=== PATIENT | female | born 1970 | race Caucasian/White ===

== ENCOUNTER 2018-11-15 15:15 | Inpatient (IN) ==
--- NOTE | 2018-11-15 15:29 | Emergency Department Note ---
ED Visit Note I assisted Dr. Powell in the care of this patient. Please see attending not for more details. . Resident Activity Tracking Resident Involvement: Resident Care Provided Care Provided: Adult ED
[2018-11-15] MEDS ORDERED: ACETAMINOPHEN 1,000 MG/100 ML VIAL IV ONE (15:50)
--- NOTE | 2018-11-15 16:19 | XRay Report ---
XR chest 1V portable CLINICAL HISTORY: fever COMPARISON STUDY: 05/19/2011 FINDINGS: Central catheter in superior vena cava. Lungs are clear. Diaphragms are smooth. IMPRESSION: No acute processes. The above report was generated using voice recognition software. It may contain grammatical, syntax or spelling errors. Electronically signed by: Noble Cain M.D. 11/15/2018 4:18 PM
[2018-11-15] MEDS ORDERED: CEFEPIME 2,000 MG/20 ML VIAL IV STA (16:32)
[2018-11-15 17:22] LABS: Basophils # (auto) 0.02 K/uL (0-0.2); Basophils % (auto) 1.1 %; Hematocrit (blood only) 43.3 % (37-47); Hemoglobin 14.5 g/dL (12.0-16.0); Immature Granulocytes # (auto) 0.04 K/uL (0.00-0.02); Immature Granulocytes % (auto) 2.3 %; Lymphocytes # (auto) 0.36 K/uL (1.2-3.4); Lymphocytes % (auto) 20.5 %; Mean Corpuscular Hgb Conc 33.5 g/dL (32-36); Mean Corpuscular Volume 92.7 fL (80-100); Mean Platelet Volume 10.5 fL (7.4-10.4); Monocytes # (auto) 0.12 K/uL (0.11-0.59); Monocytes % (auto) 6.8 %; Neutrophils # (auto) 1.22 K/uL (1.4-6.5); Neutrophils % (auto) 69.3 %; Nucleated RBC # (auto) 0.03 K/uL (0-0); Nucleated RBC % (auto) 1.7 %; Platelet Count 160 K/uL (130-400); RDW Coefficient of Variation 13.8 % (11.5-14.5); RDW Standard Deviation 46.4 fL (36.4-46.3); Red Blood Count 4.67 M/uL (4.2-5.4); White Blood Count 1.76 K/uL (4.8-10.8)
[2018-11-15 17:46] LABS: Alanine Aminotransferase 47 U/L (12-78); Albumin Globulin Ratio 0.8 (0.9-2); Albumin Level 3.7 gm/dl (3.4-5.0); Alkaline Phosphatase 134 U/L (45-117); BUN Creatinine Ratio 3.8 (10-20); Bilirubin,Total 0.6 mg/dl (0.2-1); Blood Urea Nitrogen 4 mg/dl (7-18); Carbon Dioxide 28 mmol/L (21-32); Chloride 94 mmol/L (98-107); Est GFR (African American) 79.6; Est GFR (Non-African American) 68.7; Globulin 4.6 gm/dl (2.5-4.0); Glucose 108 mg/dl (70-99); Total Protein 8.3 gm/dl (6.4-8.2)
[2018-11-15] MEDS: SODIUM CHLORIDE 0.9% 1000ML 1,000 ML IV SCH ×2 (17:48→18:14)
[2018-11-15 17:59] LABS: Potassium 3.5 mmol/L (3.5-5.1); Sodium 131 mmol/L (136-145)
[2018-11-15 18:05] LABS: Aspartate Aminotransferase 25 U/L (15-37)
--- NOTE | 2018-11-15 18:10 | History & Physical Report ---
Date of Service November 15, 2018 Assessment & Plan (1) Diarrhea: SIRS Leukopenia likely due to chemotherapy Monitor for possible Neutropenic fever No obvious source of infection Last chemotherapy 1 week ago CXR:No acute processes. UA: pending Influenza Screen: Negative Blood/Urine Cultures: Pending Empirically start on IV vancomycin, cefepime Consider neutropenic precautions if ANC less than 500 Check Stool studies to R/O C.diff Start on IV fluids Consider oncology consult if leukopenia worsens Monitor CBC Hyponatremia Hypochloremia Diarrhea R/O C.diff Started on IV fluids monitor electrolytes Left breast invasive carcinoma grade 3 ongoing neoadjuvant chemotherapy with TCHP Last chemotherapy 1 week ago Follows with Oncology Hypertension Slightly elevated Admits to missing her losartan dose today Continue losartan 25 mg daily Monitor Obesity S/P gastric bypass surgery Dysmenorrhea As per records No acute issues DVT Px: Lovenox SQ Code Status Full Code Disposition: Expect to discharge home when stable History of Present Illness Chief Complaint: Fever, generalized weakness Primary Care Provider: Christy Jones MD Patient is a 48-year-old female with history of left breast invasive carcinoma grade 3, ongoing neoadjuvant chemotherapy, hypertension, obesity S/P gastric bypass surgery, dysmenorrhea and other problems presents with history of fever, generalized weakness and lethargy, nausea and decreased appetite associated with diarrhea since 1 week duration. Patient had her last chemotherapy 1 week ago. She follows with oncology Dr. Mathew. She noticed having low-grade fever yesterday and developed high-grade fever today. States having generalized body ache associated with lethargy/generalized weakness. Also reports having nausea with dry heaves but denies any vomiting. She reports having loose watery nonbloody diarrhea since 4 days duration. She admits to having frontal headache which she attributes to migraine. Also reports noticing rash at the umbilical region and under her breasts for which she has been using calamine powder which seemed to help. Denies any associated abdominal pain, blood in stools. She reports that she had her Chemo-Port infected 2 months ago for which she completed 1 week course of Bactrim at the time. Denies any history of C. difficile. Denies any history of chest pain, SOB, palpitations, dizziness, cough, hemoptysis, dysuria. Allergies Allergy/AdvReac Type Severity Reaction Status Date / Time cashew nut Allergy Severe ANAPHYLAXIS Verified 11/15/18 18:13 pine nut Allergy Severe ANAPHYLAXIS Verified 11/15/18 18:13 pistachio nut Allergy Severe ANAPHYLAXIS Verified 11/15/18 18:13 NLESON Inhibitors Allergy Unknown cough Verified 11/15/18 18:13 Penicillins Allergy Unknown Unknown Verified 11/15/18 18:13 Home Medications Home Medications Medication Instructions Recorded Confirmed Type dexamethasone 4 mg PO DIRECTED 11/15/18 11/15/18 History epinephrine 0.3 mg IM DIRECTED PRN 11/15/18 11/15/18 History loratadine [Claritin] 10 mg PO DAILY PRN 11/15/18 11/15/18 History losartan 25 mg PO DAILY 11/15/18 11/15/18 History ondansetron HCl 8 mg PO Q8H PRN 11/15/18 11/15/18 History pedi multivit no.7-folic acid 100 mcg PO DAILY 11/15/18 11/15/18 History [Flintstones Tab Chew] pegfilgrastim [Neulasta] 6 mg SUBCUT DIRECTED 11/15/18 11/15/18 History tramadol 50 mg PO Q6H PRN 11/15/18 11/15/18 History Past Med/Surg History Medical History Breast cancer, left HTN (hypertension), benign No pertinent family history Obesity Surgical History No pertinent past surgical history Gastric bypass status for obesity Family History Mother Thyroid cancer Father Coronary heart disease Other No pertinent family history Social History Preferred Language: Norwegian Communication Ability: Effective Visual Impairment: No Limitations Hearing Ability: Normal Feels Safe at Home: Yes Smoking Status: Never smoker Hx Alcohol Use: Yes Review of Systems Review of Systems: All systems reviewed & are unremarkable except as noted in HPI & below Physical Exam Physical Exam: Physical Exam: Vitals signs as noted above General Appearance:Obese, no apparent distress Head: normocephalic, Atraumatic Eyes: normal inspection, EOMI Neck: supple, Trachea midline Respiratory/Chest: Normal breath sounds, CTA Chest: Chemo port on right side Cardiovascular: S1, S2, No murmur, +Tachycardia Abdomen/GI:Soft, Non tender, Bowel sounds present Extremities/Musculoskelatal:normal inspection, no edema Neurologic/Psych:AAOX3, grossly no focal neurological deficits Skin: normal color, warm, peeling Rash noted under breast and umbilical region Results & Data Vital Signs (Past 12 Hours) Vital Signs Temp Pulse Pulse Resp BP BP Pulse Ox 11/15/18 16:04 103 H 16 144/77 H 98 11/15/18 15:18 39.6 C H 122 H 20 150/91 H 100 Laboratory Results Short CBC 11/15/18 Range/Units 15:59 WBC 1.76 L (4.8-10.8) K/uL Hgb 14.5 (12.0-16.0) g/dL Hct 43.3 (37-47) % Plt Count 160 (130-400) K/uL BMP 11/15/18 15:59 Sodium 131 L Potassium 3.5 Chloride 94 L Carbon Dioxide 28 BUN 4 L Creatinine 0.98 Glucose 108 H Calcium 9.0 Liver Function 11/15/18 Range/Units 15:59 Total Bilirubin 0.6 (0.2-1) mg/dl AST 25 (15-37) U/L ALT 47 (12-78) U/L Alkaline Phosphatase 134 H (45-117) U/L Albumin 3.7 (3.4-5.0) gm/dl Diagnostic Findings CXR: No acute processes. ECG Additional Comments: EKG: Sinus Tachycardia, nonspecific T wave abnormality, QTC 440
[2018-11-15 19:25] LABS: Appearance Urine Clear (Clear); Bacteria Urine Automated Negative (Negative); Bilirubin Urine Negative (Negative); Blood Urine 2+ (Negative); Color Urine Dark Yellow; Epithelial Cell Urine Auto >30 /lpf (0-5); Glucose Urine UA Negative (Negative); Ketones Urine 1+ (Negative); Leukocyte Esterase Urine Negative (Negative); Nitrite Urine Negative (Negative); Protein Urine 2+ (Negative); RBC Urine Automated >30 /hpf (0-4); Specific Gravity Urine 1.032 (1.000-1.030); Urobilinogen Urine Negative (Negative); pH Urine 6.5 (4.5-7.5)
[2018-11-15 19:36] LABS: Mucus Urine Present (None Prsent)
[2018-11-15] MEDS ORDERED: POLYETHYLENE (MIRALAX) 17 GM PACK PO PRN (19:56)
[2018-11-15] MEDS ORDERED: LORATADINE 10 MG TAB PO PRN (19:56)
[2018-11-15] MEDS ORDERED: CEFEPIME CONSULT ACTIVE PRN (20:10)
[2018-11-15] MEDS ORDERED: VANCOMYCIN CONSULT ACTIVE PRN (20:11)
[2018-11-15] MEDS ORDERED: VANCOMYCIN HCL 2,250 MG in SODIUM CHLORIDE 0.9% 500 ML IV ONE (20:30)
[2018-11-15 20:31] LABS: INR 1.2 (0.9-1.1); Prothrombin Time 12.5 Seconds (9.0-12.0)
[2018-11-15] MEDS: LOSARTAN POTASSIUM 25 MG TAB PO SCH (20:38)
[2018-11-15] MEDS: PATIENT'S HEIGHT AND/OR WEIGHT NEEDED SCH (20:40)
[2018-11-15] MEDS: NSS + 20MEQ KCL 20 MEQ/1,000 ML BAG IV SCH (20:40)
[2018-11-15] MEDS: ACETAMINOPHEN 325 MG TAB PO PRN (21:32)
[2018-11-15] MEDS: NYSTATIN/TRIAMCIN CR 15 GM TUBE EXT SCH (21:32)
[2018-11-15] MEDS ORDERED: KETOROLAC TROMETHAMINE 15 MG/ML VIAL IV ONE (23:22)
[2018-11-15] MEDS: ENOXAPARIN INJ 40 MG/0.4 ML SYR SQ SCH (23:50)
[2018-11-16] MEDS: CEFEPIME 2,000 MG in SYRINGE 7.5 ML IV SCH ×3 (02:06→17:32)
[2018-11-16] MEDS: ONDANSETRON INJ 2 MG/ML 2 ML VIAL IV PRN ×2 (05:44→18:36)
[2018-11-16 05:58] LABS: Hematocrit (blood only) 29.7 % (37-47); Hemoglobin 10.4 g/dL (12.0-16.0); Mean Corpuscular Volume 91.7 fL (80-100); Mean Platelet Volume 9.4 fL (7.4-10.4); Platelet Count 117 K/uL (130-400); RDW Coefficient of Variation 13.9 % (11.5-14.5); RDW Standard Deviation 46.4 fL (36.4-46.3); Red Blood Count 3.24 M/uL (4.2-5.4); White Blood Count 2.12 K/uL (4.8-10.8)
[2018-11-16 06:18] LABS: Basophils # (auto) 0.01 K/uL (0-0.2); Basophils % (auto) 0.5 %; Dohle Bodies 3+; Giant Platelets 2+; Immature Granulocytes # (auto) 0.02 K/uL (0.00-0.02); Immature Granulocytes % (auto) 0.9 %; Lymphocytes # (auto) 0.18 K/uL (1.2-3.4); Lymphocytes % (auto) 8.5 %; Monocytes # (auto) 0.16 K/uL (0.11-0.59); Monocytes % (auto) 7.5 %; Neutrophils # (auto) 1.75 K/uL (1.4-6.5); Neutrophils % (auto) 82.6 %; Toxic Granulation 1+; Toxic Vacuolation 1+
[2018-11-16 06:22] LABS: BUN Creatinine Ratio 8.5 (10-20); Calcium 8.1 mg/dl (8.5-10.1); Creatinine Clr Calc Pharmacy 99.8 ml/min; Est GFR (African American) 106.6; Est GFR (Non-African American) 91.9; Magnesium 1.6 mg/dl (1.8-2.4); Potassium 3.9 mmol/L (3.5-5.1)
[2018-11-16] MEDS: PATIENT'S HEIGHT AND/OR WEIGHT NEEDED SCH ×3 (07:07→07:09)
[2018-11-16] MEDS: FLINTSTONES COMPLETE CHEWABLE TAB PO SCH (07:16)
[2018-11-16] MEDS: NYSTATIN/TRIAMCIN CR 15 GM TUBE EXT SCH ×2 (07:16→20:09)
[2018-11-16] MEDS: LOSARTAN POTASSIUM 25 MG TAB PO SCH (07:16)
[2018-11-16] MEDS: NSS + 20MEQ KCL 20 MEQ/1,000 ML BAG IV SCH ×2 (07:16→17:31)
[2018-11-16] MEDS: ACETAMINOPHEN 325 MG TAB PO PRN ×2 (09:58→18:39)
[2018-11-16] MEDS ORDERED: VANCOMYCIN HCL 1,500 MG in SODIUM CHLORIDE 0.9% 500 ML IV SCH (10:00)
--- NOTE | 2018-11-16 10:04 | Emergency Department Note ---
Entered by Ashley Perla acting as a scribe for History of Present Illness General Chief complaint: Fever Stated complaint: FEVER Time Seen by Provider: 11/15/18 15:23 Source: patient Mode of arrival: ambulatory Limitations: no limitations History of Present Illness Onset (ago): day(s) 2 Location: head (global), upper extremity (global) and lower extremity (global) Pain Consistency: + other (worsening) Maximum Pain Intensity: 0 Quality: + other (fever) Associated symptoms: + fever/chills (The patient complains of fever. ), + rash and + other (The patient complains of diarrhea, neck pain, and fatigue. The patient denies burning with urination, sore throat, and cold symptoms. ); no shortness of breath The patient is a 48 white female w/ PMHx left-sided breast cancer who presents to the ED w/ CC of a worsening fever beginning 2 days ago. The patient states that she has had two rounds of chemotherapy. She states that she had had diarrhea since her last chemotherapy session on 11/09/2018. She notes that 2 days she developed fevers and fatigue. The patient states that she had a fever of 100 yesterday and 103.6 today. The patient complains of rash under her breast and belly button. She also complains of neck pain. She denies shortness of breath, burning with urination, sore throat, and cold symptoms. Home Medications Home Medications Medication Instructions Recorded Confirmed Type dexamethasone 4 mg PO DIRECTED 11/15/18 11/15/18 History epinephrine 0.3 mg IM DIRECTED PRN 11/15/18 11/15/18 History loratadine [Claritin] 10 mg PO DAILY PRN 11/15/18 11/15/18 History losartan 25 mg PO DAILY 11/15/18 11/15/18 History ondansetron HCl 8 mg PO Q8H PRN 11/15/18 11/15/18 History pedi multivit no.7-folic acid 100 mcg PO DAILY 11/15/18 11/15/18 History [Flintstones Tab Chew] pegfilgrastim [Neulasta] 6 mg SUBCUT DIRECTED 11/15/18 11/15/18 History tramadol 50 mg PO Q6H PRN 11/15/18 11/15/18 History Allergies Allergy/AdvReac Type Severity Reaction Status Date / Time cashew nut Allergy Severe ANAPHYLAXIS Verified 11/15/18 18:13 pine nut Allergy Severe ANAPHYLAXIS Verified 11/15/18 18:13 pistachio nut Allergy Severe ANAPHYLAXIS Verified 11/15/18 18:13 NELSON Inhibitors Allergy Unknown cough Verified 11/15/18 18:13 Penicillins Allergy Unknown Unknown Verified 11/15/18 18:13 Past Med/Surg History Medical History Breast cancer, left HTN (hypertension), benign No pertinent family history Obesity Surgical History No pertinent past surgical history Gastric bypass status for obesity Family History Mother Thyroid cancer Father Coronary heart disease Other No pertinent family history Social History Preferred Language: Danish Communication Ability: Effective Visual Impairment: No Limitations Hearing Ability: Normal 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 and A total of 10 systems reviewed and were otherwise negative Physical Exam Vital Signs Vital Signs - 24 hr 11/15/18 15:18 11/15/18 16:04 11/15/18 16:08 Temperature 39.6 C H Temperature Source Oral Sepsis Recent Fever Within 48 Hours Yes Sepsis Action Taken by Nursing No Action Required Pulse Rate 122 H 120 H Pulse Rate [Finger] 103 H Pulse Rate from SpO2 Sensor 123 H Respiratory Rate 20 16 15 Respiratory Effort / Characteristics Non-Labored Respiratory Depth Normal Blood Pressure 150/91 H 144/77 H Blood Pressure [Right Arm] 144/77 H Blood Pressure Mean 110 99 Blood Pressure Mean [Right Arm] 99 Pulse Oximetry 100 98 93 Oxygen Delivery Method Room Air Room Air 11/15/18 16:15 11/15/18 16:31 11/15/18 16:40 Temperature Temperature Source Sepsis Recent Fever Within 48 Hours Sepsis Action Taken by Nursing Pulse Rate 111 H 109 H 109 H Pulse Rate [Finger] Pulse Rate from SpO2 Sensor 110 H 109 H 109 H Respiratory Rate 23 26 H 24 Respiratory Effort / Characteristics Respiratory Depth Blood Pressure 138/70 138/70 Blood Pressure [Right Arm] Blood Pressure Mean 92 92 Blood Pressure Mean [Right Arm] Pulse Oximetry 97 96 98 Oxygen Delivery Method 11/15/18 16:41 11/15/18 17:00 11/15/18 17:37 Temperature Temperature Source Sepsis Recent Fever Within 48 Hours Sepsis Action Taken by Nursing Pulse Rate 110 H 109 H 111 H Pulse Rate [Finger] Pulse Rate from SpO2 Sensor 109 H Respiratory Rate 26 H 26 H 20 Respiratory Effort / Characteristics Respiratory Depth Blood Pressure 138/70 169/85 H Blood Pressure [Right Arm] Blood Pressure Mean 92 113 Blood Pressure Mean [Right Arm] Pulse Oximetry 98 Oxygen Delivery Method 11/15/18 18:00 11/15/18 18:01 11/15/18 18:02 Temperature Temperature Source Sepsis Recent Fever Within 48 Hours Sepsis Action Taken by Nursing Pulse Rate 109 H 108 H 107 H Pulse Rate [Finger] Pulse Rate from SpO2 Sensor Respiratory Rate 19 27 H 27 H Respiratory Effort / Characteristics Respiratory Depth Blood Pressure 146/92 H Blood Pressure [Right Arm] Blood Pressure Mean 110 Blood Pressure Mean [Right Arm] Pulse Oximetry Oxygen Delivery Method 11/15/18 18:30 11/15/18 18:31 Temperature Temperature Source Sepsis Recent Fever Within 48 Hours Sepsis Action Taken by Nursing Pulse Rate 103 H 106 H Pulse Rate [Finger] Pulse Rate from SpO2 Sensor Respiratory Rate 20 21 Respiratory Effort / Characteristics Respiratory Depth Blood Pressure 113/72 Blood Pressure [Right Arm] Blood Pressure Mean 85 Blood Pressure Mean [Right Arm] Pulse Oximetry Oxygen Delivery Method GENERAL: Well appearing, well nourished, NAD, non-toxic. EYE EXAM: Normal conjunctiva. PERRL, no anisocoria and EOM's grossly intact w/o pain. OROPHARYNX: Moist mucus membranes. Grossly normal dentition. NECK: Supple, no nuchal rigidity, no adenopathy, non-tender. no signs of meningismus. CHEST: Port in the right chest that is red and dry. A scar forming at the 2 oclock position, no crepitus, no fluctuance. LUNGS: Clear to auscultation. Normal chest wall mechanics. HEART: NSR, no MRG. Tachycardic and regular. ABDOMEN: Abdomen soft, non-tender, normo-active bowel sounds, no masses, no rebound or guarding. BACK: No CVA TTP. SKIN: Port in the right chest that is red and dry. A scar forming at the 2 o clock position, no crepitus, no fluctuance UPPER EXTREMITIES: Upper extremities are grossly normal. LOWER EXTREMITIES: No pitting edema. No calf pain. NEURO EXAM: A&O x3, cranial nerves II-XII grossly intact, normal speech, moves all 4 extremities on command w/o issue. Course 1529: Past medical records reviewed. The patient was evaluated in room B9. A complete history and physical examination was performed. Administered Medications Acetaminophen (Tylenol) 650 mg PO Q4H PRN PRN Reason: pain/fever Stop: 12/15/18 19:55 Last Admin: 11/16/18 09:58 Dose: 650 mg Documented by: [id number] Admin: 11/15/18 21:32 Dose: 650 mg Documented by: [id number] Enoxaparin Sodium (Lovenox) 40 mg SQ Q24H [facility] Stop: 12/15/18 21:29 Last Admin: 11/15/18 23:50 Dose: Not Given Documented by: [id number] Potassium Chloride/Sodium Chloride (Normal Saline W/20 Meq Kcl) 20 meq in 1,000 mls @ 100 mls/hr IV .Q10H [facility] Stop: 12/15/18 20:14 Last Admin: 11/16/18 07:16 Dose: 100 mls/hr Documented by: [id number] Infusion: 11/16/18 07:06 Dose: 0 mls/hr Documented by: [id number] Admin: 11/15/18 20:40 Dose: 100 mls/hr Documented by: [id number] Cefepime HCl 2,000 mg/ Syringe 20 mls @ 5 mls/min IV Q8H [facility] Stop: 11/18/18 01:59 Last Admin: 11/16/18 09:52 Dose: 5 mls/min Documented by: [id number] Admin: 11/16/18 02:06 Dose: 5 mls/min Documented by: [id number] Vancomycin HCl 1,500 mg/ (Sodium Chloride) 530 mls @ 200 mls/hr IV Q14H [facility] Stop: 11/18/18 09:59 Last Admin: 11/16/18 09:52 Dose: 200 mls/hr Documented by: [id number] Losartan Potassium (Cozaar) 25 mg PO DAILY [facility] Stop: 12/15/18 19:55 Last Admin: 11/16/18 07:16 Dose: 25 mg Documented by: [id number] Admin: 11/15/18 20:38 Dose: 25 mg Documented by: [id number] Multivitamins/Folic Acid/Vitamin C (Flintstones Complete Chew Tab) 1 tab PO DAILY [facility] Stop: 12/16/18 08:59 Last Admin: 11/16/18 07:16 Dose: 1 tab Documented by: [id number] Nystatin/Triamcinolone Acetonide (Mycolog Ii) 1 appln EXT BID [facility] Stop: 12/15/18 20:59 Last Admin: 11/16/18 07:16 Dose: 1 appln Documented by: [id number] Admin: 11/15/18 21:32 Dose: Not Given Documented by: [id number] Ondansetron HCl (Zofran) 4 mg IV Q6H PRN PRN Reason: Nausea Stop: 12/15/18 19:55 Last Admin: 11/16/18 05:44 Dose: 4 mg Documented by: [id number] Discontinued Medications Sodium Chloride (Nss 1000ml) 1,000 mls @ 999 mls/hr IV .Q1H1M [place] Stop: 11/15/18 18:00 Last Infusion: 11/15/18 19:19 Dose: 0 mls/hr Documented by: [id number] Admin: 11/15/18 18:14 Dose: 999 mls/hr Documented by: [id number] Infusion: 11/15/18 18:14 Dose: 999 mls/hr Documented by: [id number] Admin: 11/15/18 17:48 Dose: 999 mls/hr Documented by: [id number] Acetaminophen (Ofirmev) 1,000 mg in 100 mls @ 400 mls/hr IV NOW ONE Stop: 11/15/18 16:04 Last Infusion: 11/15/18 18:14 Dose: 0 mls/hr Documented by: [id number] Admin: 11/15/18 17:49 Dose: 400 mls/hr Documented by: [id number] Cefepime HCl (Maxipime) 2,000 mg in 20 mls @ 5 mls/min IV NOW STA; Protocol Stop: 11/15/18 16:35 Last Admin: 11/15/18 17:49 Dose: 5 mls/min Documented by: [id number] Vancomycin HCl 2,250 mg/ (Sodium Chloride) 545 mls @ 200 mls/hr IV ONE ONE Stop: 11/15/18 23:13 Last Infusion: 11/15/18 23:30 Dose: 0 mls/hr Documented by: [id number] Admin: 11/15/18 20:40 Dose: 200 mls/hr Documented by: [id number] Ketorolac Tromethamine (Toradol) 15 mg IV NOW ONE Stop: 11/15/18 23:23 Last Admin: 11/15/18 23:49 Dose: 15 mg Documented by: [id number] Miscellaneous (Patient's Height And/Or Weight Needed) 1 ea N/A Q15M [facility] Stop: 11/15/18 22:01 Last Admin: 11/16/18 07:09 Dose: Not Given Documented by: [id number] Admin: 11/16/18 07:09 Dose: Not Given Documented by: [id number] Admin: 11/16/18 07:09 Dose: Not Given Documented by: [id number] Admin: 11/16/18 07:08 Dose: Not Given Documented by: [id number] Admin: 11/16/18 07:07 Dose: Not Given Documented by: [id number] Admin: 11/15/18 20:40 Dose: 1 ea Documented by: [id number] Medical Decision Making Differential Diagnosis Differential diagnoses: Viral syndrome, otitis, pharyngitis, pneumonia, influenza, meningitis, urinary tract infection, sepsis, bacteremia, as well as others were entertained. Medical Records Attestation: I reviewed the patient's medical records. Home Medications Current Medication List: was personally reviewed by me Laboratory Data Attestation: I reviewed the patient's lab results. Result diagrams: 11/16/18 05:36 11/16/18 05:36 Lab Results 11/15/18 11/15/18 11/15/18 Range/Units 15:59 15:59 15:59 WBC 1.76 L (4.8-10.8) K/uL RBC 4.67 (4.2-5.4) M/uL Hgb 14.5 (12.0-16.0) g/dL Hct 43.3 (37-47) % MCV 92.7 (80-100) fL MCH 31.0 (25-34) pg MCHC 33.5 (32-36) g/dL RDW Std Deviation 46.4 H (36.4-46.3) fL RDW Coeff of Vic 13.8 (11.5-14.5) % Plt Count 160 (130-400) K/uL MPV 10.5 H (7.4-10.4) fL Immature Gran % (Auto) 2.3 % Neut % (Auto) 69.3 % Lymph % (Auto) 20.5 % Jennings % (Auto) 6.8 % Eos % (Auto) 0.0 % Baso % (Auto) 1.1 % Immature Gran # (Auto) 0.04 H (0.00-0.02) K/uL Neut # (Auto) 1.22 L (1.4-6.5) K/uL Lymph # (Auto) 0.36 L (1.2-3.4) K/uL Jennings # (Auto) 0.12 (0.11-0.59) K/uL Eos # (Auto) 0.00 (0-0.5) K/uL Baso # (Auto) 0.02 (0-0.2) K/uL Absolute Nucleated RBC 0.03 H (0-0) K/uL Nucleated RBC % (auto) 1.7 % PT (9.0-12.0) Seconds INR (0.9-1.1) Sodium 131 L (136-145) mmol/L Potassium 3.5 (3.5-5.1) mmol/L Chloride 94 L (98-107) mmol/L Carbon Dioxide 28 (21-32) mmol/L Anion Gap 9.0 (3-11) BUN 4 L (7-18) mg/dl Creatinine 0.98 (0.6-1.2) mg/dl Est Cr Clr Drug Dosing Not Reportable Est GFR ( Amer) 79.6 Est GFR (Non-Af Amer) 68.7 BUN/Creatinine Ratio 3.8 L (10-20) Glucose 108 H (70-99) mg/dl Lactate 2.0 (0.4-2.0) mmol/L Calcium 9.0 (8.5-10.1) mg/dl Total Bilirubin 0.6 (0.2-1) mg/dl AST 25 (15-37) U/L ALT 47 (12-78) U/L Alkaline Phosphatase 134 H (45-117) U/L Total Protein 8.3 H (6.4-8.2) gm/dl Albumin 3.7 (3.4-5.0) gm/dl Globulin 4.6 H (2.5-4.0) gm/dl Albumin/Globulin Ratio 0.8 L (0.9-2) Influenza Type A Ag (Neg) Influenza Type B Ag (Neg) Bld Cult Staph aureus PCR (Negative) Blood Culture MRSA PCR (Negative) 11/15/18 11/15/18 11/15/18 Range/Units 15:59 17:25 18:00 WBC (4.8-10.8) K/uL RBC (4.2-5.4) M/uL Hgb (12.0-16.0) g/dL Hct (37-47) % MCV (80-100) fL MCH (25-34) pg MCHC (32-36) g/dL RDW Std Deviation (36.4-46.3) fL RDW Coeff of Vic (11.5-14.5) % Plt Count (130-400) K/uL MPV (7.4-10.4) fL Immature Gran % (Auto) % Neut % (Auto) % Lymph % (Auto) % Jennings % (Auto) % Eos % (Auto) % Baso % (Auto) % Immature Gran # (Auto) (0.00-0.02) K/uL Neut # (Auto) (1.4-6.5) K/uL Lymph # (Auto) (1.2-3.4) K/uL Jennings # (Auto) (0.11-0.59) K/uL Eos # (Auto) (0-0.5) K/uL Baso # (Auto) (0-0.2) K/uL Absolute Nucleated RBC (0-0) K/uL Nucleated RBC % (auto) % PT 12.5 H (9.0-12.0) Seconds INR 1.2 H (0.9-1.1) Sodium (136-145) mmol/L Potassium (3.5-5.1) mmol/L Chloride (98-107) mmol/L Carbon Dioxide (21-32) mmol/L Anion Gap (3-11) BUN (7-18) mg/dl Creatinine (0.6-1.2) mg/dl Est Cr Clr Drug Dosing Est GFR ( Amer) Est GFR (Non-Af Amer) BUN/Creatinine Ratio (10-20) Glucose (70-99) mg/dl Lactate (0.4-2.0) mmol/L Calcium (8.5-10.1) mg/dl Total Bilirubin (0.2-1) mg/dl AST (15-37) U/L ALT (12-78) U/L Alkaline Phosphatase (45-117) U/L Total Protein (6.4-8.2) gm/dl Albumin (3.4-5.0) gm/dl Globulin (2.5-4.0) gm/dl Albumin/Globulin Ratio (0.9-2) Influenza Type A Ag Neg for Influ A (Neg) Influenza Type B Ag Neg for Influ B (Neg) Bld Cult Staph aureus PCR Positive A (Negative) Blood Culture MRSA PCR Negative (Negative) Imaging Data Radiologist's Impression: Radiology results as stated below per my review and the radiologist's interpretation: XR chest 1V portable CLINICAL HISTORY: fever COMPARISON STUDY: 05/19/2011 FINDINGS: Central catheter in superior vena cava. Lungs are clear. Diaphragms are smooth. IMPRESSION: No acute processes. The above report was generated using voice recognition software. It may contain grammatical, syntax or spelling errors. Electronically signed by: Noble Cain M.D. 11/15/2018 4:18 PM Dictated: 11/15/18 161 Transcribed: 11/15/18 161 ECG Data Attestation: I personally reviewed and interpreted this ECG as follows: Indication: other (fever) Rate (beats per minute): 111 Rhythm: sinus tachycardia Findings: + other (normal interval, normal axis) and + T-wave inversion (anterior, lateral) Blood Pressure Blood Pressure Findings: Elevated blood pressure Blood Pressure Disposition: further management by hospitalist MDM Narrative The patient is a 48 white female w/ PMHx left-sided breast cancer who presents to the ED w/ CC of a worsening fever beginning 2 days ago. Patient was seen and evaluated the bedside after being seen and evaluated by the resident physician. Patient is on chemotherapy and does see Dr. Mathew. Patient does have a right-sided chest port which does have some redness but this appears this may be from the recent use of the port. This does appear to have an eschar that is formed near the surface but this appears to be more related to healing tissue as opposed to purulent drainage. Patient did have blood work completed and was given IV fluids and started on cefepime. Patient did have some le ukopenia but not true severe neutropenia. Patient has had a negative chest x- ray. The resident physician did consult with the oncologist who was concerned about the diarrhea and possible malabsorption of outpatient antibiotics as well as dehydration issues. He did speak with the on-call hospitalist agreed to further evaluate treat the patient. Patient was admitted to medicine service. Impression & Plan Sepsis, Neutropenia, Breast cancer Discharge Plan Visit Data *Final* Discharge Date/Time: 11/15/18 19:28 Chief Complaint: Fever Stated Complaint: FEVER ED Provider: Garth Powell ED Midlevel Provider: John Chatterjee Discharge Problem: Sepsis, Neutropenia, Breast cancer Patient Disposition: Admitted As Inpatient Discharge Instructions Interventions: ED Discharge Assessment Last Done: 11/15/18 19:28 Discharge Problem: Sepsis Qualifiers: Sepsis type: sepsis due to unspecified organism Qualified Code(s): A41.9 - Sepsis, unspecified organism Neutropenia Qualifiers: Neutropenia type: secondary to cancer chemotherapy Qualified Code(s): D70.1 - Agranulocytosis secondary to cancer chemotherapy Breast cancer Qualifiers: Breast location: unspecified site of breast Estrogen receptor status: unspecified Patient sex: female Laterality: left Qualified Code(s): C50.912 - Malignant neoplasm of unspecified site of left female breast The scribe's documentation has been prepared under my direction and personally reviewed by me in its entirety. I confirm that the note above accurately reflects all work, treatment, procedures, and medical decision making performed by me.
--- NOTE | 2018-11-16 10:16 | Infectious Disease Consult ---
Date of Consultation November 16, 2018 Assessment & Plan (1) Gram positive sepsis: will change abx to dapto, suspect staph as pathogen. will repeat blood cultures. She states that cultures in ER were taken from port as they were unable to obtain perph cultures, will attempt perph cultures. Will need echo. Highly concerned for port infection, especially with h/o purulent drainage from port after placement. would consider surgery eval for por removal. will follow. History of Present Illness Attending Physician: Nia Garcia MD pt admitted with fevers, shaking chills at home. had chemo 1 week ago, tolerated well. Also having some nausea, no vomiting and diarrhea which she states is normal for her post chemo. Fever in ER 39.6, now afebrile. no rigors since admission. Having pain at her port site. States port was placed 2 1/2 months ago at [facility] [place]. She states shortly after port was placed, she developed infection at port, states tender, red with white pustules and purulent drainage. was treated with 7 days bactrim, denies having blood cultures done or having any IV abx. port remains in place. States having pain with chemo infusion and states recently she noticed increased erythema surrounding port. She had blood cultures done in ER, 2/2 sets now + gpc in clusters. Placed on cefepime and vanco, tolerating well. wbc 2.1, ANC 1750. creat 0.7. UA 5-10 wbc, culture pending. Flu and C. diff negative. CXR negative. Currently denies f/c, no n/v/d/abd pain, no cp, sob, cough. Only complaint is pain at port site. Denies any purulent drainage currently Allergies Allergy/AdvReac Type Severity Reaction Status Date / Time cashew nut Allergy Severe ANAPHYLAXIS Verified 11/15/18 18:13 pine nut Allergy Severe ANAPHYLAXIS Verified 11/15/18 18:13 pistachio nut Allergy Severe ANAPHYLAXIS Verified 11/15/18 18:13 NELSON Inhibitors Allergy Unknown cough Verified 11/15/18 18:13 Penicillins Allergy Unknown Unknown Verified 11/15/18 18:13 Home Medications Home Medications Medication Instructions Recorded Confirmed Type dexamethasone 4 mg PO DIRECTED 11/15/18 11/15/18 History epinephrine 0.3 mg IM DIRECTED PRN 11/15/18 11/15/18 History loratadine [Claritin] 10 mg PO DAILY PRN 11/15/18 11/15/18 History losartan 25 mg PO DAILY 11/15/18 11/15/18 History ondansetron HCl 8 mg PO Q8H PRN 11/15/18 11/15/18 History pedi multivit no.7-folic acid 100 mcg PO DAILY 11/15/18 11/15/18 History [Flintstones Tab Chew] pegfilgrastim [Neulasta] 6 mg SUBCUT DIRECTED 11/15/18 11/15/18 History tramadol 50 mg PO Q6H PRN 11/15/18 11/15/18 History Patient History Medical History Breast cancer, left HTN (hypertension), benign No pertinent family history Obesity Surgical History No pertinent past surgical history Gastric bypass status for obesity Family History Mother Thyroid cancer Father Coronary heart disease Other No pertinent family history Social History Preferred Language: Kyrgyz Communication Ability: Effective Visual Impairment: No Limitations Hearing Ability: Normal Shop Teacher Required: No Beliefs That Will Affect Care: None Current Living Situation: Spouse Other Information That Helps Us Care for You: No Feels Safe at Home: Yes Safety Concerns: Feels Safe At This Time Smoking Status: Never smoker Do You Dip or Chew Tobacco: No Second Hand Exposure: No Hx Alcohol Use: No Hx Substance Use: No Review of Systems Review of Systems: All systems reviewed & are unremarkable except as noted in HPI & below Physical Exam Constitutional: WD/WN, vitals as above Eyes: PERRL, conjunctivae normal, anicteric sclerae ENMT: external ear and nose normal, oropharynx normal Neck: normal visual inspection Respiratory: normal respiratory effort, lungs clear to auscultation Cardiovascular: RRR, no murmur, no edema Gastrointestinal (Abdomen): normal bowel sounds, soft, nontender, no hepatosplenomegaly Musculoskeletal: no cyanosis or clubbing, extremities motor strength 5/5 Skin: no rashes, warm and dry right chest wall port with warmth, tenderness, min erythema. no drainage noted. dressing intact. Psychiatric: A+Ox3, euthymic affect Results & Data Vital Signs (Past 12 Hours) Vital Signs Temp Pulse Pulse Resp BP BP Pulse Ox 11/16/18 07:57 37.3 C 114 H 18 120/74 97 11/16/18 04:26 37.1 C 109 H 18 105/57 L 95 11/16/18 01:00 37.1 C 11/15/18 23:45 117 H 11/15/18 23:04 39.5 C H 120 H 16 95/56 L 95 Laboratory Results Microbiology 11/15/18 17:05 Blood Aerobic Blood Culture - Preliminary Gram positive cocci clusters 11/15/18 15:59 Blood Aerobic Blood Culture - Preliminary Gram positive cocci 11/15/18 15:59 Blood Anaerobic Blood Culture - Preliminary Gram positive cocci
[2018-11-16] MEDS: DAPTOmycin 425 MG in SYRINGE 0 ML IV SCH (10:52)
--- NOTE | 2018-11-16 12:30 | Consultation ---
Date of Consultation November 16, 2018 Assessment & Plan (1) Gram positive sepsis: Infusaport likely source of bacteremia d/t previous infection shortly after placement as well as new onset tenderness/neck pain around IJ insertion site. Pt discussed with Dr Walker, planning on infusaport removal in OR tomorrow afternoon. Pt agreeable. Patient was seen, examined, and chart reviewed. Agree with exam and treatment plan of the Vascular PA. Present on Admission?: Yes (2) Breast cancer: Infusaport removal scheduled for tomorrow. D/T poor IV access and requiring chemotherapy, may consider replacement of access at later time after tx of bacteremia. Breast location: unspecified site of breast Estrogen receptor sta tus: unspecified Laterality: left Patient sex: female Qualified Code(s): C50.912 - Malignant neoplasm of unspecified site of left female breast Present on Admission?: Yes History of Present Illness Reason for Consultation: port infection, bacteremia Attending Physician: Nia Garcia MD History of Present Illness 48 yo f with hx of breast ca and currently receiving chemotherapy via R IJ infusaport, admitted with sepsis, seen in consultation today for likely infusaport infection causing bacteremia. Pt states she had port inserted about 2 1/2 months ago at [facility]. Noted erythema and white pustules with purulent drainage post op, and was on oral abx. sx cleared and port was then accessed for chemo. Pt states no abx for at least 4 weeks. Last chemo was about 1 week ago and is scheduled for next chemo tx on 11/30. Noted increasing pain in R neck, IJ site over past 3 weeks or so. Mother noted fever yesterday, so came to ED. Pt admits malaise and fatigue and fever. Denies GRIMALDO, chest pain, sOB, abd pain, N/V, rest pain, claudication, other complaints. Blood cx positive for GPC. Allergies Allergy/AdvReac Type Severity Reaction Status Date / Time cashew nut Allergy Severe ANAPHYLAXIS Verified 11/15/18 18:13 pine nut Allergy Severe ANAPHYLAXIS Verified 11/15/18 18:13 pistachio nut Allergy Severe ANAPHYLAXIS Verified 11/15/18 18:13 NELSON Inhibitors Allergy Unknown cough Verified 11/15/18 18:13 Penicillins Allergy Unknown Unknown Verified 11/15/18 18:13 Home Medications Home Medications Medication Instructions Recorded Confirmed Type dexamethasone 4 mg PO DIRECTED 11/15/18 11/15/18 History epinephrine 0.3 mg IM DIRECTED PRN 11/15/18 11/15/18 History loratadine [Claritin] 10 mg PO DAILY PRN 11/15/18 11/15/18 History losartan 25 mg PO DAILY 11/15/18 11/15/18 History ondansetron HCl 8 mg PO Q8H PRN 11/15/18 11/15/18 History pedi multivit no.7-folic acid 100 mcg PO DAILY 11/15/18 11/15/18 History [Flintstones Tab Chew] pegfilgrastim [Neulasta] 6 mg SUBCUT DIRECTED 11/15/18 11/15/18 History tramadol 50 mg PO Q6H PRN 11/15/18 11/15/18 History Patient History Medical History Breast cancer, left HTN (hypertension), benign No pertinent family history Obesity Surgical History No pertinent past surgical history Gastric bypass status for obesity Family History Mother Thyroid cancer Father Coronary heart disease Other No pertinent family history Social History Preferred Language: Macedonian Communication Ability: Effective Visual Impairment: No Limitations Hearing Ability: Normal Switch Coupler Required: No Beliefs That Will Affect Care: None marital status: Current Living Situation: Spouse Other Information That Helps Us Care for You: No Feels Safe at Home: Yes Safety Concerns: Feels Safe At This Time Smoking Status: Never smoker Do You Dip or Chew Tobacco: No Second Hand Exposure: No Hx Alcohol Use: No Hx Substance Use: No Review of Systems Review of Systems: All systems reviewed & are unremarkable except as noted in HPI & below (malaise, fatigue, fever, poor appetite) Physical Exam Constitutional: WD/WN, vitals as above well developed, well nourished, + ill appearing, + obese, well groomed, + disheveled, cooperative and comfortable; not in distress and not combative Eyes: PERRL, conjunctivae normal, anicteric sclerae EOM intact bilaterally ENMT: external ear and nose normal, oropharynx normal Ears: no hearing impairment Nose: no nasal discharge Throat: no posterior oropharynx abnormality Neck: trachea midline, no thyromegaly + neck tender (R neck near IJ site, no erythema or edema or drainage); no tracheal deviation and no neck crepitus Respiratory: normal respiratory effort, lungs clear to auscultation able to speak in complete sentences; no cough Auscultation: lungs clear to auscultation bilaterally; no rhonchi and no wheezes Cardiovascular: RRR, no murmur, no edema Rate/Rhythm: regular rhythm and + tachycardic Heart Sounds: no gallop and no murmur Vessels: normal peripheral pulses, femoral pulses present, posterior tibial pulses present, dorsalis pedis pulses present, brachial pulses present and radial pulses present; no carotid bruit and no femoral bruit Extremities: normal capillary refill and + vascular access device (R IJ infusaport. No erythema or draiange noted. Currently accessed for IV); no pedal edema Gastrointestinal (Abdomen): normal bowel sounds, soft, nontender, no hepatosplenomegaly Inspection/Auscultation: abdomen normal to inspection and normal bowel sounds; abdomen not distended Percussion/Palpation: abdomen soft; abdomen nontender, no guarding, abdomen not rigid and no abdominal mass Musculoskeletal: no cyanosis or clubbing, extremities motor strength 5/5 Head/Neck/Chest: normocephalic, head atraumatic and neck supple Extremities: extremities normal to inspection and strength 5/5 throughout; full ROM of extremities and no clubbing Skin: no rashes, warm and dry normal turgor; no rashes, no lesions, no ulcers, no induration, no wound, no dry skin, no erythema, no eschar, no excoriations, no mottling and no pallor Neurologic: moves all extremities and awake; no focal motor deficits and not confused Speech / Cognition: no expressive aphasia and no receptive aphasia Motor/Sensory: no tremor and no sensory deficit Cranial Nerves: EOM intact bilaterally, normal facial strength and tongue midline Gait: not gait assisted Psychiatric: Orientation: alert, oriented x 3 and cooperative Apperance: appropriately dressed, appropriately groomed and appeared stated age Affect: euthymic affect Thought Process: goal directed thought process, linear/logical thought process and clear/coherent thought process Cognition: recent memory grossly intact, remote memory grossly intact, attention grossly intact and language grossly intact Estimated Intelligence: average estimated intelligence Lymphatic: no lymphedema Results & Data Vital Signs (Past 12 Hours) Vital Signs Temp Pulse Resp BP BP Pulse Ox 11/16/18 11:42 37.4 C 93 H 18 110/71 96 11/16/18 10:56 37.5 C 11/16/18 07:57 37.3 C 114 H 18 120/74 97 11/16/18 04:26 37.1 C 109 H 18 105/57 L 95 11/16/18 01:00 37.1 C
--- NOTE | 2018-11-16 15:06 | Hospitalist Progress Note ---
Date of Service November 16, 2018 Assessment & Plan (1) Gram positive sepsis: The patient presented with a fever and noted to have sepsis on presentation Has stage III breast cancer, ongoing chemo and noted to have neutropenia on presentation Likely secondary to infected port She was started on intravenous vancomycin and cefepime Blood culture grew gram-positive cocci in cluster Appreciate ID input and recommendation Antibiotic has been changed to daptomycin Echo to rule out possible vegetations Consult vascular surgery to remove port Discussed with oncologist Present on Admission?: Yes (2) Neutropenia: Received chemotherapy last week Neutropenia secondary to chemo Received Neupogen as per oncologist Neutropenia has been improving (3) Breast cancer: Stage III with ongoing chemo We will have outpatient appointment with oncologist (4) Diarrhea: Presented with a watery diarrhea C. difficile has been negative Stool culture-pending Diarrhea seems to be stopped Electrolyte imbalance with Hyponatremia,Hypochloremia Secondary to diarrhea Started on IV fluids Monitor electrolytes Hypertension Slightly elevated Admits to missing her losartan dose today Continue losartan 25 mg daily Monitor Obesity S/P gastric bypass surgery Dysmenorrhea As per records No acute issues DVT Px: Lovenox SQ Code Status Full Code Disposition: Expect to discharge home when stable Subjective 11/16 The patient was seen and examined in medical floor She is a 48-year-old female with history of invasive left breast carcinoma grade 3, ongoing neoadjuvant chemotherapy, hypertension, obesity S/P gastric bypass surgery, dysmenorrhea and other problems presents with history of fever, generalized weakness and lethargy, nausea and decreased appetite associated with diarrhea since 1 week duration. Patient had her last chemotherapy 1 week ago. Admitted with febrile illness with neutropenia Clinically little bit better today Complains to have weakness but no other symptoms Review of Systems Review of Systems: All systems reviewed and are unremarkable except as noted. Constitutional: + fatigue and + weakness Respiratory: no dyspnea Cardiovascular: no dyspnea Neurologic: + generalized weakness Physical Exam Physical Exam: Lying in bed comfortably Constitutional: well developed, well nourished, + ill appearing, + obese, well groomed, + disheveled, cooperative and comfortable; not in distress and not combative Eyes: PERRL, conjunctivae normal, anicteric sclerae ENMT: external ear and nose normal, oropharynx normal Neck: trachea midline, no thyromegaly + neck tender (R neck near IJ site, no erythema or edema or drainage) Respiratory: normal respiratory effort and able to speak in complete sentences Auscultation: lungs clear to auscultation bilaterally Cardiovascular: Rate/Rhythm: regular rhythm and + tachycardic Heart Sounds: no murmur Vessels: brachial pulses present and radial pulses present Extremities: + vascular access device (R IJ infusaport. No erythema or draiange noted. Currently accessed for IV); no pedal edema Gastrointestinal (Abdomen): Inspection/Auscultation: abdomen normal to inspection and normal bowel sounds Percussion/Palpation: abdomen soft Musculoskeletal: Extremities: extremities normal to inspection Skin: no rashes, warm and dry normal turgor; no rashes, no lesions, no ulcers, no induration, no wound, no dry skin, no erythema, no eschar, no excoriations, no mottling and no pallor Neurologic: moves all extremities and awake; no focal motor deficits and not confused Speech / Cognition: no expressive aphasia and no receptive aphasia Motor/Sensory: no tremor and no sensory deficit Cranial Nerves: EOM intact bilaterally, normal facial strength and tongue midline Gait: not gait assisted Psychiatric: A+Ox3, euthymic affect Orientation: alert, oriented x 3 and cooperative Apperance: appropriately dressed, appropriately groomed and a ppeared stated age Affect: euthymic affect Thought Process: goal directed thought process, linear/logical thought process and clear/coherent thought process Cognition: attention grossly intact and language grossly intact Estimated Intelligence: average estimated intelligence Lymphatic: no cervical or axillary lymphadenopathy Results & Data Vital Signs (Past 12 Hours) Vital Signs Temp Pulse Resp BP BP Pulse Ox 11/16/18 11:42 37.4 C 93 H 18 110/71 96 11/16/18 10:56 37.5 C 11/16/18 07:57 37.3 C 114 H 18 120/74 97 11/16/18 04:26 37.1 C 109 H 18 105/57 L 95 Laboratory Results Short CBC 11/15/18 11/16/18 Range/Units 15:59 05:36 WBC 1.76 L 2.12 L (4.8-10.8) K/uL Hgb 14.5 10.4 L D (12.0-16.0) g/dL Hct 43.3 29.7 L (37-47) % Plt Count 160 117 L (130-400) K/uL BMP 11/15/18 11/16/18 15:59 05:36 Sodium 131 L 137 Potassium 3.5 3.9 Chloride 94 L 104 Carbon Dioxide 28 26 BUN 4 L 7 Creatinine 0.98 0.77 Glucose 108 H 100 H Calcium 9.0 8.1 L Cardiac Enzymes 11/16/18 Range/Units 11:07 Total Creatine Kinase 46 (26-192) U/L Liver Function 11/15/18 Range/Units 15:59 Total Bilirubin 0.6 (0.2-1) mg/dl AST 25 (15-37) U/L ALT 47 (12-78) U/L Alkaline Phosphatase 134 H (45-117) U/L Albumin 3.7 (3.4-5.0) gm/dl Urine 11/15/18 Range/Units 19:00 Urine Color Dark Yellow Urine Appearance Clear (Clear) Urine pH 6.5 (4.5-7.5) Ur Specific [place] 1.032 H (1.000-1.030) Urine Protein 2+ H (Negative) Urine Glucose (UA) Negative (Negative) Medications Administered Current Inpatient Medications Acetaminophen (Tylenol) 650 mg PO Q4H PRN PRN Reason: pain/fever Stop: 12/15/18 19:55 Last Admin: 11/16/18 09:58 Dose: 650 mg Documented by: Enoxaparin Sodium (Lovenox) [address] [facility] Stop: 12/15/18 21:29 Last Admin: 11/15/18 23:50 Dose: Not Given Documented by: Potassium Chloride/Sodium Chloride (Normal Saline W/20 Meq Kcl) 20 meq in 1,000 mls @ 100 mls/hr IV .Q10H [facility] Stop: 12/15/18 20:14 Last Admin: 11/16/18 07:16 Dose: 100 mls/hr Documented by: Cefepime HCl 2,000 mg/ Syringe 20 mls @ 5 mls/min IV Q8H [facility] Stop: 11/18/18 01:59 Last Admin: 11/16/18 09:52 Dose: 5 mls/min Documented by: Daptomycin 425 mg/ Syringe 8.5 mls @ 4.25 mls/min IV Q24H [facility]; Protocol Stop: 11/30/18 10:59 Last Admin: 11/16/18 10:52 Dose: 4.25 mls/min Documented by: Loratadine (Claritin) 10 mg PO DAILY PRN PRN Reason: Allergy Symptoms Stop: 12/15/18 19:55 Losartan Potassium (Cozaar) [address] [facility] Stop: 12/15/18 19:55 Last Admin: 11/16/18 07:16 Dose: 25 mg Documented by: Miscellaneous Information (Cefepime Consult Active) 1 ea N/A UD PRN PRN Reason: Consult Stop: 12/15/18 20:09 Multivitamins/Folic Acid/Vitamin C (Flintstones Complete Chew Tab) 1 tab PO DAILY [facility] Stop: 12/16/18 08:59 Last Admin: 11/16/18 07:16 Dose: 1 tab Documented by: Nystatin/Triamcinolone Acetonide (Mycolog Ii) 1 appln EXT BID [facility] Stop: 12/15/18 20:59 Last Admin: 11/16/18 07:16 Dose: 1 appln Documented by: Ondansetron HCl (Zofran) 4 mg IV Q6H PRN PRN Reason: Nausea Stop: 12/15/18 19:55 Last Admin: 11/16/18 05:44 Dose: 4 mg Documented by: Polyethylene Glycol (Miralax Powder Packet) 17 gm PO DAILY PRN PRN Reason: Constipation Stop: 12/15/18 19:55 Tramadol HCl (Ultram) 50 mg PO Q6H PRN PRN Reason: Pain Stop: 12/15/18 19:55 (1) Neutropenia Neutropenia type: secondary to cancer chemotherapy Qualified Code(s): D70.1 - Agranulocytosis secondary to cancer chemotherapy; T45.1X5A - Adverse effect of antineoplastic and immunosuppressive drugs, initial encounter (2) Breast cancer Breast location: unspecified site of breast Estrogen receptor status: unspecified Laterality: left Patient sex: female Qualified Code(s): C50.912 - Malignant neoplasm of unspecified site of left female breast
[2018-11-16] MEDS: ENOXAPARIN INJ 40 MG/0.4 ML SYR SQ SCH (21:35)
[2018-11-16] MEDS ORDERED: HEPARIN 100 UNIT/ML 5ML FLUSH FLUSH PRN (22:49)
[2018-11-16] MEDS ORDERED: ALUMINUM/MAGNESIUM/SIMETH (MAALOX MAX) 30 ML UDC PO STA (22:51)
[2018-11-17] MEDS: ONDANSETRON INJ 2 MG/ML 2 ML VIAL IV PRN (00:14)
[2018-11-17] MEDS: CEFEPIME 2,000 MG in SYRINGE 7.5 ML IV SCH ×2 (01:56→10:20)
[2018-11-17] MEDS: TRAMADOL HCL 50 MG TABLET PO PRN (01:56)
[2018-11-17] MEDS: NSS + 20MEQ KCL 20 MEQ/1,000 ML BAG IV SCH ×2 (04:03→12:13)
[2018-11-17] MEDS ORDERED: PERFLUTREN LIPID MICROSPHERE (DEFINITY) IV ONE (06:59)
[2018-11-17 07:30] LABS: Hematocrit (blood only) 25.7 % (37-47); Hemoglobin 8.9 g/dL (12.0-16.0); Mean Corpuscular Hgb Conc 34.6 g/dL (32-36); Mean Corpuscular Volume 91.5 fL (80-100); Mean Platelet Volume 9.8 fL (7.4-10.4); Platelet Count 114 K/uL (130-400); RDW Coefficient of Variation 13.8 % (11.5-14.5); RDW Standard Deviation 46.1 fL (36.4-46.3); Red Blood Count 2.81 M/uL (4.2-5.4); White Blood Count 4.04 K/uL (4.8-10.8)
[2018-11-17] MEDS ORDERED: IBUPROFEN 600 MG TAB PO STA (07:52)
[2018-11-17 08:00] LABS: BUN Creatinine Ratio 6.8 (10-20); Calcium 8.3 mg/dl (8.5-10.1); Creatinine Clr Calc Pharmacy 125.7 ml/min; Est GFR (African American) 124.5; Est GFR (Non-African American) 107.4; Magnesium 1.7 mg/dl (1.8-2.4); Phosphorus 1.9 mg/dl (2.5-4.9); Potassium 3.5 mmol/L (3.5-5.1)
[2018-11-17 08:13] LABS: Basophils # (auto) 0.01 K/uL (0-0.2); Basophils % (auto) 0.2 %; Dohle Bodies 2+; Eosinophils # (auto) 0.01 K/uL (0-0.5); Eosinophils % (auto) 0.2 %; Giant Platelets 2+; Immature Granulocytes # (auto) 0.04 K/uL (0.00-0.02); Lymphocytes # (auto) 0.54 K/uL (1.2-3.4); Lymphocytes % (auto) 13.4 %; Monocytes # (auto) 0.37 K/uL (0.11-0.59); Monocytes % (auto) 9.2 %; Neutrophils # (auto) 3.07 K/uL (1.4-6.5); Toxic Granulation 2+
[2018-11-17] MEDS: NYSTATIN/TRIAMCIN CR 15 GM TUBE EXT SCH ×2 (08:32→20:21)
[2018-11-17] MEDS: FLINTSTONES COMPLETE CHEWABLE TAB PO SCH (08:32)
[2018-11-17] MEDS: LOSARTAN POTASSIUM 25 MG TAB PO SCH (08:32)
--- NOTE | 2018-11-17 10:25 | History & Physical Bridge Note ---
Date of Service November 17, 2018 History & Physical Bridge Note Patient for removal of her infected port today. I have discussed the risks options and benefits of the procedure with the patient. The patient understands the risks options and benefits and agrees to the procedure. I have examined the patient, reviewed the History & Physical and in the interval since the performance of the History & Physical I have noted the following changes of clinical significance: no changes noted
[2018-11-17] MEDS: DAPTOmycin 425 MG in SYRINGE 0 ML IV SCH (12:12)
--- NOTE | 2018-11-17 14:05 | Infectious Disease Progress Nt ---
Date of Service November 17, 2018 Assessment & Plan (1) Gram positive sepsis: will change abx to dapto, await final culture results. repeat blood cultures pending, echo negative. . Highly concerned for port infection, especially with h/o purulent drainage from port after placement. would consider for port removal. please send cultures. no gnr found, will stop cefepime. will follow. Subjective isolated fever 38.9 overnight, otherwise afebrile. blood cultures growing S. aureus, final pending. repeat cultures 11/16 ngtd. For port removal. tolerating abx. wbc improved to 4 today. Results & Data Vital Signs (Past 12 Hours) Vital Signs Temp Pulse Pulse Resp BP Pulse Ox 11/17/18 07:04 37.5 C 93 H 18 116/78 93 11/17/18 07:00 91 H 11/17/18 04:14 37.2 C 94 H 18 115/71 94 Laboratory Results Microbiology 11/15/18 19:00 Urine,Clean Catch Urine Culture - Final No growth - less than 1,000 colonies/mL. 11/16/18 Unknown Stool Shiga Toxin Test - Preliminary 11/16/18 Unknown Stool Stool Culture - Preliminary No Salmonella isolated to date, No Shigella isolated to date, No Campylobacter jejuni isolated to date. 11/16/18 11:07 Blood Aerobic Blood Culture - Preliminary No growth in Aerobic bottle after 24 hours. 11/16/18 11:07 Blood Anaerobic Blood Culture - Preliminary No growth in Anaerobic bottle after 24 hours. 11/16/18 11:35 Blood Aerobic Blood Culture - Preliminary No growth in Aerobic bottle after 24 hours. 11/16/18 11:35 Blood Anaerobic Blood Culture - Preliminary No growth in Anaerobic bottle after 24 hours. 11/15/18 17:05 Blood Aerobic Blood Culture - Preliminary Staphylococcus aureus 11/15/18 17:05 Blood Anaerobic Blood Culture - Final 11/15/18 15:59 Blood Aerobic Blood Culture - Preliminary Staphylococcus aureus 11/15/18 15:59 Blood Anaerobic Blood Culture - Preliminary Staphylococcus aureus 11/16/18 Unknown Stool WBC Smear - Final
[2018-11-17] MEDS ORDERED: POTASSIUM PHOS 3 MMOL/1 ML INFUSION IV STA (14:37)
--- NOTE | 2018-11-17 14:37 | Hospitalist Progress Note ---
Date of Service November 17, 2018 Assessment & Plan (1) Gram positive sepsis: The patient presented with a fever and noted to have sepsis on presentation Has stage III breast cancer, ongoing chemo and noted to have neutropenia on presentation Likely secondary to infected port She was started on intravenous vancomycin and cefepime Blood culture grew gram-positive cocci in cluster Appreciate ID input and recommendation Antibiotic has been changed to daptomycin Echo to rule out possible vegetations; ECHO did not show any significant valvular heart disease and/or vegetations 11/17 Consult vascular surgery to remove port; Status post removal of the port 11/17 Discussed with oncologist Clinically recommend better (2) Neutropenia: Received chemotherapy last week Neutropenia secondary to chemo Received Neupogen as per oncologist Neutropenia has been improving and continues to improve (3) Breast cancer: Stage III with ongoing chemo We will have outpatient appointment with oncologist (4) Diarrhea: Presented with a watery diarrhea C. difficile has been negative Stool culture-negative Diarrhea seems to be stopped Electrolyte imbalance with Hyponatremia,Hypochloremia Secondary to diarrhea Started on IV fluids Monitor electrolytes-we will supplement phosphate and potassium Hypertension Slightly elevated Admits to missing her losartan dose today Continue losartan 25 mg daily Monitor Obesity S/P gastric bypass surgery Dysmenorrhea As per records No acute issues DVT Px: Lovenox SQ Code Status Full Code Disposition: Expect to discharge home when stable Subjective 11/16 The patient was seen and examined in medical floor She is a 48-year-old female with history of invasive left breast carcinoma grade 3, ongoing neoadjuvant chemotherapy, hypertension, obesity S/P gastric bypass surgery, dysmenorrhea and other problems presents with history of fever, generalized weakness and lethargy, nausea and decreased appetite associated with diarrhea since 1 week duration. Patient had her last chemotherapy 1 week ago. Admitted with febrile illness with neutropenia Clinically little bit better today Complains to have weakness but no other symptoms 11/17 The patient was seen and examined in medical floor She still complains to have weakness and diarrhea Denies any more fever and/or chills No abdominal pain nausea and/or vomiting Review of Systems Review of Systems: All systems reviewed and are unremarkable except as noted. Constitutional: + fatigue and + weakness Neurologic: + generalized weakness Physical Exam Physical Exam: No apparent distress at rest but extremely weak Constitutional: well developed, well nourished, + ill appearing, + obese, well groomed, + disheveled, cooperative and comfortable; not in distress and not combative Eyes: PERRL, conjunctivae normal, anicteric sclerae ENMT: external ear and nose normal, oropharynx normal Neck: trachea midline, no thyromegaly + neck tender (R neck near IJ site, no erythema or edema or drainage) Respiratory: normal respiratory effort and able to speak in complete sentences Auscultation: lungs clear to auscultation bilaterally Cardiovascular: Rate/Rhythm: regular rhythm and + tachycardic Heart Sounds: no murmur Vessels: brachial pulses present and radial pulses present Extremities: + vascular access device (R IJ infusaport. No erythema or draiange noted. Currently accessed for IV); no pedal edema Chest (Breasts): Additional Comments: The port site seems to be slightly inflamed but no dryness Gastrointestinal (Abdomen): Inspection/Auscultation: abdomen normal to inspection and normal bowel sounds Percussion/Palpation: abdomen soft Musculoskeletal: Extremities: extremities normal to inspection Skin: no rashes, warm and dry normal turgor; no rashes, no lesions, no ulcers, no induration, no wound, no dry skin, no erythema, no eschar, no excoriations, no mottling and no pallor Neurologic: moves all extremities and awake; no focal motor deficits and not confused Speech / Cognition: no expressive aphasia and no receptive aphasia Motor/Sensory: no tremor and no sensory deficit Cranial Nerves: EOM intact bilaterally, normal facial strength and tongue midline Gait: not gait assisted Psychiatric: A+Ox3, euthymic affect Orientation: alert, oriented x 3 and cooperative Apperance: appropriately dressed, appropriately groomed and appeared stated age Affect: euthymic affect Thought Process: goal directed thought process, linear/logical thought process and clear/coherent thought process Cognition: attention grossly intact and language grossly intact Estimated Intelligence: average estimated intelligence Lymphatic: no cervical or axillary lymphadenopathy Results & Data Vital Signs (Past 12 Hours) Vital Signs Temp Pulse Pulse Resp BP Pulse Ox 11/17/18 07:04 37.5 C 93 H 18 116/78 93 11/17/18 07:00 91 H 11/17/18 04:14 37.2 C 94 H 18 115/71 94 Laboratory Results Short CBC 11/17/18 Range/Units 07:14 WBC 4.04 L (4.8-10.8) K/uL Hgb 8.9 L (12.0-16.0) g/dL Hct 25.7 L (37-47) % Plt Count 114 L (130-400) K/uL BMP 11/17/18 07:14 Sodium 136 Potassium 3.5 Chloride 105 Carbon Dioxide 25 BUN 4 L Creatinine 0.62 Glucose 82 Calcium 8.3 L Medications Administered Current Inpatient Medications Acetaminophen (Tylenol) 650 mg PO Q4H PRN PRN Reason: pain/fever Stop: 12/15/18 19:55 Last Admin: 11/16/18 18:39 Dose: 650 mg Documented by: Enoxaparin Sodium (Lovenox) 40 mg SQ Q24H [facility] Stop: 12/15/18 21:29 Last Admin: 11/16/18 21:35 Dose: 40 mg Documented by: Heparin Sodium (Porcine) (Heparin Sod 100 Unit/Ml Flush) 5 ml FLUSH PRN PRN PRN Reason: Flush Stop: 12/16/18 22:59 Potassium Chloride/Sodium Chloride (Normal Saline W/20 Meq Kcl) 20 meq in 1,000 mls @ 100 mls/hr IV .Q10H [facility] Stop: 12/15/18 20:14 Last Admin: 11/17/18 12:13 Dose: 100 mls/hr Documented by: Daptomycin 425 mg/ Syringe 8.5 mls @ 4.25 mls/min IV Q24H [facility]; Protocol Stop: 11/30/18 10:59 Last Admin: 11/17/18 12:12 Dose: 4.25 mls/min Documented by: Loratadine (Claritin) 10 mg PO DAILY PRN PRN Reason: Allergy Symptoms Stop: 12/15/18 19:55 Losartan Potassium (Cozaar) 25 mg PO DAILY [facility] Stop: 12/15/18 19:55 Last Admin: 11/17/18 08:32 Dose: 25 mg Documented by: Multivitamins/Folic Acid/Vitamin C (Flintstones Complete Chew Tab) 1 tab PO DAILY [facility] Stop: 12/16/18 08:59 Last Admin: 11/17/18 08:32 Dose: 1 tab Documented by: Nystatin/Triamcinolone Acetonide (Mycolog Ii) 1 appln EXT BID [facility] Stop: 12/15/18 20:59 Last Admin: 11/17/18 08:32 Dose: 1 appln Documented by: Ondansetron HCl (Zofran) 4 mg IV Q6H PRN PRN Reason: Nausea Stop: 12/15/18 19:55 Last Admin: 11/17/18 00:14 Dose: 4 mg Documented by: Polyethylene Glycol (Miralax Powder Packet) 17 gm PO DAILY PRN PRN Reason: Constipation Stop: 12/15/18 19:55 Tramadol HCl (Ultram) 50 mg PO Q6H PRN PRN Reason: Pain Stop: 12/15/18 19:55 Last Admin: 11/17/18 01:56 Dose: 50 mg Documented by: (1) Neutropenia Neutropenia type: secondary to cancer chemotherapy Qualified Code(s): D70.1 - Agranulocytosis secondary to cancer chemotherapy; T45.1X5A - Adverse effect of antineoplastic and immunosuppressive drugs, initial encounter (2) Breast cancer Breast location: unspecified site of breast Estrogen receptor status: unspecified Laterality: left Patient sex: female Qualified Code(s): C50.912 - Malignant neoplasm of unspecified site of left female breast
[2018-11-17] MEDS ORDERED: LIDOCAINE HCL 1% 20 ML VIAL ONE (14:42)
[2018-11-17] MEDS ORDERED: POTASSIUM PHOSPHATE 30 MMOL in SODIUM CHLORIDE 0.9% 500 ML IV ONE (15:00)
[2018-11-17] MEDS ORDERED: MAGNESIUM SULFATE / D5W 1 GM/100 ML BAG IV ONE (15:00)
--- NOTE | 2018-11-17 15:32 | Pre Anesthesia Assessment ---
Date of Service November 17, 2018 Pre Sedation Assessment Vital Signs Temp Pulse Pulse Resp BP BP Pulse Ox 11/17/18 15:27 36.8 C 87 18 116/80 93 11/17/18 15:15 86 18 142/100 H 94 11/17/18 07:04 37.5 C 93 H 18 116/78 93 11/17/18 07:00 91 H 11/17/18 04:14 37.2 C 94 H 18 115/71 94 11/16/18 23:30 92 H 11/16/18 23:28 37.2 C 92 H 16 123/83 99 11/16/18 19:19 38.9 C H 106 H 20 120/79 96 11/16/18 16:30 95 H Cardiovascular RRR, no murmur, no edema Respiratory normal respiratory effort, lungs clear to auscultation Pre-Sedation Airway Assessment Smoking Status: Never smoker Hx Sleep Apnea: No Short, Thick Neck: No Thyromental Distance: > or= 3.5 Finger Breadths Oral Cavity: + WNL Mallampati Class: II ASA: ASA3 NPO Status Date of Last Intake of Fluids: 11/16/18 Time of Last Intake of Fluids: 23:00 Date of Last Intake of Solid Food: 11/16/18 Time of Last Intake of Solid Foods: 23:00 Procedure Planning Contraindications for Sedation: none Current Medications Reviewed: Yes Notes The planned sedation has been discussed with the patient. Informed Consent was obtained. I have identified the patient, determined the appropriateness of sedation and have assessed the patient immediately prior to the procedure. All medicine(s) and interventions are by my order.
[2018-11-17] MEDS ORDERED: fentaNYL citrate 100 MCG/2 ML VIAL ONE (15:41)
[2018-11-17] MEDS ORDERED: MIDAZOLAM HCL 1 MG/ML 2ML VIAL ONE (15:41)
[2018-11-17] MEDS ORDERED: MoRPHine SULFATE 4 MG/ML 1 ML CARP\\VIAL IV PRN (15:52)
--- NOTE | 2018-11-17 15:59 | Operative Report ---
Post Operative Report Pre & Post Diagnosis Operation Date: 11/17/18 14:30 Pre-Op Diagnosis: infected infusaport Post-Op Diagnosis: infected infusaport Procedure Operation Date: 11/17/18 14:30 Actual Procedures p Removal Of Infected Infusaport, Moderate Concious Sedation 1543 to 1559(Right) - Nick Walker MD Surgeon Nick Walker MD Consumer Services Consultant None Estimated Blood Loss 2 Findings Consistent with Post-Op Diagnosis Specimens Culture sent Anesthesia Type RN Sedation Complications none Disposition Accompanied Patient To Recovery: No Disposition: Recovery Room Indications This is a 48-year-old female who had a port placed 2-1/2 months ago. The wound was affected right after surgery. He was treated with antibiotics. 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 Removal was recommended. I have discussed the risks options and benefits of the procedure with the patient. The patient understands the risks options and benefits and agrees to the procedure. Description of Procedure Patient was taken to the angio suite and placed in the supine position. The right side of the neck and chest wall were prepped and draped in a sterile manner. The patient was identified and a timeout was performed. Local anesthesia was then administered to the appropriate areas of the neck and chest wall. A transverse incision was made below the clavicle on the chest wall in the line of the old incision. Bleeding was controlled using cautery. Using sharp and blunt dissection the port and fibrin sheath were dissected free and removed. The catheter slid out easily. Adequate hemostasis was then obtained. Once adequate hemostasis was noted the wound was then closed. The incision was closed using a 3-0 Vicryl suture for the subcutaneous layer and celeste for the skin layer. Sterile dressings were applied to the wound.The patient left the operation room in satisfactory condition and tolerated the procedure well. All needle and sponge counts were correct at the end of the procedure. I attest to the content of the Intraoperative Record and any orders documented therein. Any exceptions are noted below.
--- NOTE | 2018-11-17 16:02 | Post Anesthesia Assessment ---
Date of Service November 17, 2018 Post Sedation Assessment Vital Signs Temp Pulse Pulse Resp BP BP Pulse Ox 11/17/18 15:59 82 16 118/74 95 11/17/18 15:54 74 16 116/71 98 11/17/18 15:53 74 16 116/74 100 11/17/18 15:48 76 17 132/93 100 11/17/18 15:43 79 18 134/78 100 11/17/18 15:40 81 19 132/93 100 11/17/18 15:27 36.8 C 87 18 116/80 93 11/17/18 15:15 86 18 142/100 H 94 11/17/18 07:04 37.5 C 93 H 18 116/78 93 11/17/18 07:00 91 H 11/17/18 04:14 37.2 C 94 H 18 115/71 94 11/16/18 23:30 92 H 11/16/18 23:28 37.2 C 92 H 16 123/83 99 11/16/18 19:19 38.9 C H 106 H 20 120/79 96 11/16/18 16:30 95 H Recovery Score Activity: Moves 4 extremities Respiration: Deep Breath/Cough Circulation: +/-20% PreAnes Value Consciousness: Fully Awake Oxygen Saturation: > 92% On Room Air Post Anesthesia Score: 10 Discharge Sedation Level of Care: Fast Track Phase II Post Sedation Plan On clinical assessment, the patient appears to have tolerated the sedation without complications. Patient is recovering as anticipated. Patient will continue to be monitored by nursing and may be discharged when sedation discharge criteria are met per below protocol. Upon Completions of procedure and additional 15 minutes continue every 5 minute vital signs and the P.A.R. score; then discharge to a Phase I or Fast Track to Phase II per the following guidelines: * Discharge Patient to appropriate Phase II area if PAR is 8 or greater or return to pre- procedure baseline. The post - procedure orders will be as directed. * If PAR score is less than 8 or not return to pre-procedure baseline then patient will follow Phase I monitoring till PAR is reached for Phase II. The Phase I may be done in procedure room or may call to secure a Phase I area. * If naloxone or flumazenil are used for reversal, hold in Phase I for continued monitoring from when last reversal dose was given for a minimum of 60 minutes or longer pending the nurse and/or physician discretion of patient condition before discharge to Phase II. Please call the Sedation Physician to re-evaluate and complete post-note for discharge to Phase II area. Do NOT discharge from procedure sedation or Phase 1 until post- sedation evaluation note is complete by procedure /sedation MD Sedation Discharge Instructions to be given to the patient at discharge to home.
[2018-11-17] MEDS: ENOXAPARIN INJ 40 MG/0.4 ML SYR SQ SCH (20:22)
[2018-11-18] MEDS: ONDANSETRON INJ 2 MG/ML 2 ML VIAL IV PRN ×2 (00:22→19:17)
[2018-11-18] MEDS: TRAMADOL HCL 50 MG TABLET PO PRN (00:22)
[2018-11-18] MEDS ORDERED: VANCOMYCIN TROUGH ONE (03:30)
[2018-11-18] MEDS: ACETAMINOPHEN 325 MG TAB PO PRN (03:38)
[2018-11-18] MEDS: NSS + 20MEQ KCL 20 MEQ/1,000 ML BAG IV SCH ×3 (05:46→15:46)
[2018-11-18 08:06] LABS: Hematocrit (blood only) 26.7 % (37-47); Hemoglobin 9.1 g/dL (12.0-16.0); Mean Corpuscular Hgb Conc 34.1 g/dL (32-36); Mean Corpuscular Volume 92.1 fL (80-100); Mean Platelet Volume 10.4 fL (7.4-10.4); Platelet Count 131 K/uL (130-400); RDW Coefficient of Variation 14.2 % (11.5-14.5); RDW Standard Deviation 47.6 fL (36.4-46.3)
[2018-11-18 08:17] LABS: BUN Creatinine Ratio 3.6 (10-20); Calcium 8.7 mg/dl (8.5-10.1); Creatinine Clr Calc Pharmacy 134.4 ml/min; Est GFR (African American) 127.2; Est GFR (Non-African American) 109.8; Magnesium 1.8 mg/dl (1.8-2.4); Potassium 3.9 mmol/L (3.5-5.1)
[2018-11-18 08:21] LABS: Phosphorus 2.8 mg/dl (2.5-4.9)
[2018-11-18 08:56] LABS: Basophils # (auto) 0.01 K/uL (0-0.2); Basophils % (auto) 0.2 %; Dohle Bodies 1+; Eosinophils # (auto) 0.01 K/uL (0-0.5); Eosinophils % (auto) 0.2 %; Giant Platelets 1+; Immature Granulocytes # (auto) 0.07 K/uL (0.00-0.02); Immature Granulocytes % (auto) 1.3 %; Lymphocytes # (auto) 0.58 K/uL (1.2-3.4); Lymphocytes % (auto) 10.4 %; Monocytes # (auto) 0.35 K/uL (0.11-0.59); Monocytes % (auto) 6.3 %; Neutrophils # (auto) 4.58 K/uL (1.4-6.5); Neutrophils % (auto) 81.6 %; Toxic Granulation 2+
--- NOTE | 2018-11-18 08:59 | Infectious Disease Progress Nt ---
Date of Service November 18, 2018 Assessment & Plan (1) Gram positive sepsis: will continue dapto. has pcn allergy, would prefer to maintain Dapto. will need picc line, if 11/16 blood cultures remain negative tomorrow,ok for picc. Echo negative. Unclear if infection was isolated [facility] but she did have at least 1 dose of abx prior to abx. follow repeat blood cultures, if negative she will need 14 days of IV dapto from date of port removal. weekly cbc, cmp, cpk while on abx. Subjective s/p port removal, OR cultures pending. Initial blood cultures in ER were taken from port, both sets growing MSSA. repeat cultures on 11/16 (one from port, one from hand) are negative at 24 hours. echo negative. afebrile overnight wbc 5.6 today. remains on dapto, tolerating well. no pain at port site, no cp, sob, cough, no n/v/d/abd pain, states she is tired today. otherwise, feeling well. Review of Systems Review of Systems: All systems reviewed & are unremarkable except as noted in HPI & below Physical Exam Constitutional: WD/WN, vitals as above Eyes: PERRL, conjunctivae normal, anicteric sclerae ENMT: external ear and nose normal, oropharynx normal Neck: normal visual inspection Respiratory: normal respiratory effort, lungs clear to auscultation Cardiovascular: RRR, no murmur, no edema Gastrointestinal (Abdomen): normal bowel sounds, soft, nontender, no hepatosplenomegaly Musculoskeletal: no cyanosis or clubbing, extremities motor strength 5/5 Skin: no rashes, warm and dry right chest wall dressing c/d/i, non tender, no surroudning erythema. Psychiatric: A+Ox3, euthymic affect Results & Data Vital Signs (Past 12 Hours) Vital Signs Temp Pulse Pulse Resp BP BP Pulse Ox 11/18/18 08:13 37.0 C 85 18 122/75 94 11/17/18 23:39 92 H 11/17/18 23:07 37.2 C 99 H 19 108/72 95 Laboratory Results Microbiology 11/16/18 Unknown Stool Shiga Toxin Test - Preliminary 11/16/18 Unknown Stool Stool Culture - Preliminary No Salmonella isolated to date, No Shigella isolated to date, No Campylobacter jejuni isolated to date. 11/15/18 15:59 Blood Aerobic Blood Culture - Final Staphylococcus aureus 11/15/18 15:59 Blood Anaerobic Blood Culture - Preliminary Staphylococcus aureus 11/15/18 17:05 Blood Aerobic Blood Culture - Preliminary Staphylococcus aureus 11/15/18 17:05 Blood Anaerobic Blood Culture - Final 11/15/18 19:00 Urine,Clean Catch Urine Culture - Final No growth - less than 1,000 colonies/mL. 11/16/18 11:07 Blood Aerobic Blood Culture - Preliminary No growth in Aerobic bottle after 24 hours. 11/16/18 11:07 Blood Anaerobic Blood Culture - Preliminary No growth in Anaerobic bottle after 24 hours. 11/16/18 11:35 Blood Aerobic Blood Culture - Preliminary No growth in Aerobic bottle after 24 hours. 11/16/18 11:35 Blood Anaerobic Blood Culture - Preliminary No growth in Anaerobic bottle after 24 hours. 11/16/18 Unknown Stool WBC Smear - Final
[2018-11-18] MEDS: LOSARTAN POTASSIUM 25 MG TAB PO SCH (10:37)
[2018-11-18] MEDS: FLINTSTONES COMPLETE CHEWABLE TAB PO SCH (10:37)
[2018-11-18] MEDS: NYSTATIN/TRIAMCIN CR 15 GM TUBE EXT SCH ×2 (10:37→21:03)
[2018-11-18] MEDS: DAPTOmycin 425 MG in SYRINGE 0 ML IV SCH (10:38)
--- NOTE | 2018-11-18 15:59 | Hospitalist Progress Note ---
Date of Service November 18, 2018 Assessment & Plan (1) Gram positive sepsis: The patient presented with a fever and noted to have sepsis on presentation Has stage III breast cancer, ongoing chemo and noted to have neutropenia on presentation Likely secondary to infected port She was started on intravenous vancomycin and cefepime Blood culture grew gram-positive cocci in cluster Appreciate ID input and recommendation Antibiotic has been changed to daptomycin Echo to rule out possible vegetations; ECHO did not show any significant valvular heart disease and/or vegetations 11/17 Consult vascular surgery to remove port; Status post removal of the port 11/17 Status post removal of the port and the tip has been sent for culture Daptomycin should be continued for 14 days in total from 11/17. Weekly CBC, CMP and CPK level should be done while on IV daptomycin. Have the repeat blood culture remains negative tentatively tomorrow she will have PICC line placement on 11/19 Likely to be discharged on 11/20-antibiotic prescription has been given to social service (2) Neutropenia: Received chemotherapy last week Neutropenia secondary to chemo Received Neupogen as per oncologist Neutropenia has been improving and continues to improve Discussed with oncologist-we will have regular outpatient appointment (3) Breast cancer: Stage III with ongoing chemo We will have outpatient appointment with oncologist (4) Diarrhea: Presented with a watery diarrhea C. difficile has been negative Stool culture-negative Diarrhea seems to be stopped Electrolyte imbalance with Hyponatremia,Hypochloremia Secondary to diarrhea Started on IV fluids Monitor electrolytes-we will supplement phosphate and potassium Electrolytes have been normalized Hypertension Slightly elevated Admits to missing her losartan dose today Continue losartan 25 mg daily Monitor Obesity S/P gastric bypass surgery Dysmenorrhea As per records No acute issues DVT Px: Lovenox SQ Code Status Full Code Disposition: Expect to discharge home when stable Likely discharge on Wednesday Discussed with the mother in detail Subjective 11/16 The patient was seen and examined in medical floor She is a 48-year-old female with history of invasive left breast carcinoma grade 3, ongoing neoadjuvant chemotherapy, hypertension, obesity S/P gastric bypass surgery, dysmenorrhea and other problems presents with history of fever, generalized weakness and lethargy, nausea and decreased appetite associated with diarrhea since 1 week duration. Patient had her last chemotherapy 1 week ago. Admitted with febrile illness with neutropenia Clinically little bit better today Complains to have weakness but no other symptoms 11/17 The patient was seen and examined in medical floor She still complains to have weakness and diarrhea Denies any more fever and/or chills No abdominal pain nausea and/or vomiting 11/18 The patient was seen and examined in medical floor She has been feeling a little bit better Only complaint is generalized weakness and migraine headache No fever and/or chills, no abdominal pain nausea and vomiting Review of Systems Review of Systems: All systems reviewed and are unremarkable except as noted. Constitutional: + fatigue and + weakness Neurologic: + generalized weakness Physical Exam Physical Exam: Lying in bed comfortably Constitutional: well developed, well nourished, + ill appearing, + obese, + disheveled, cooperative and comfortable Eyes: PERRL, conjunctivae normal, anicteric sclerae ENMT: external ear and nose normal, oropharynx normal Neck: trachea midline, no thyromegaly + neck tender (R neck near IJ site, no erythema or edema or drainage) Respiratory: normal respiratory effort and able to speak in complete sentences Auscultation: lungs clear to auscultation bilaterally Cardiovascular: Rate/Rhythm: regular rhythm and + tachycardic Heart Sounds: no murmur Vessels: brachial pulses present and radial pulses present Extremities: + vascular access device (R IJ infusaport. No erythema or draiange noted. Currently accessed for IV); no pedal edema Gastrointestinal (Abdomen): Inspection/Auscultation: abdomen normal to inspection and normal bowel sounds Percussion/Palpation: abdomen soft Musculoskeletal: Extremities: extremities normal to inspection Skin: no rashes, warm and dry normal turgor; no rashes, no lesions, no ulcers, no induration, no wound, no dry skin, no erythema, no eschar, no excoriations, no mottling and no pallor Neurologic: moves all extremities and awake Cranial Nerves: EOM intact bilaterally, normal facial strength and tongue midline Psychiatric: A+Ox3, euthymic affect Orientation: alert, oriented x 3 and cooperative Apperance: appropriately dressed, appropriately groomed and appeared stated age Affect: euthymic affect Cognition: attention grossly intact and language grossly intact Estimated Intelligence: average estimated intelligence Lymphatic: no cervical or axillary lymphadenopathy Results & Data Vital Signs (Past 12 Hours) Vital Signs Temp Pulse Pulse Resp BP BP Pulse Ox 11/18/18 15:17 96 H 11/18/18 15:00 37.2 C 97 H 18 128/81 94 06/28/19 11:30 37.3 C 104 H 18 137/85 97 11/18/18 10:34 98 H 114/75 11/18/18 08:13 37.0 C 85 18 122/75 94 Laboratory Results Short CBC 11/18/18 Range/Units 07:02 WBC 5.60 (4.8-10.8) K/uL Hgb 9.1 L (12.0-16.0) g/dL Hct 26.7 L (37-47) % Plt Count 131 (130-400) K/uL BMP 11/18/18 07:02 Sodium 138 Potassium 3.9 Chloride 104 Carbon Dioxide 27 BUN 2 L Creatinine 0.58 L Glucose 84 Calcium 8.7 Medications Administered Current Inpatient Medications Acetaminophen (Tylenol) 650 mg PO Q4H PRN PRN Reason: pain/fever Stop: 12/15/18 19:55 Last Admin: 11/18/18 03:38 Dose: 650 mg Documented by: Enoxaparin Sodium (Lovenox) 40 mg SQ Q24H [facility] Stop: 12/15/18 21:29 Last Admin: 11/17/18 20:22 Dose: 40 mg Documented by: Heparin Sodium (Porcine) (Heparin Sod 100 Unit/Ml Flush) 5 ml FLUSH PRN PRN PRN Reason: Flush Stop: 12/16/18 22:59 Potassium Chloride/Sodium Chloride (Normal Saline W/20 Meq Kcl) 20 meq in 1,000 mls @ 100 mls/hr IV .Q10H [facility] Stop: 12/15/18 20:14 Last Admin: 11/18/18 15:46 Dose: 100 mls/hr Documented by: Daptomycin 425 mg/ Syringe 8.5 mls @ 4.25 mls/min IV Q24H [facility]; Protocol Stop: 11/30/18 10:59 Last Admin: 11/18/18 10:38 Dose: 4.25 mls/min Documented by: Loratadine (Claritin) 10 mg PO DAILY PRN PRN Reason: Allergy Symptoms Stop: 12/15/18 19:55 Losartan Potassium (Cozaar) 25 mg PO DAILY [facility] Stop: 12/15/18 19:55 Last Admin: 11/18/18 10:37 Dose: 25 mg Documented by: Morphine Sulfate (Morphine Sulfate) 1 - 4 mg IV Q2H PRN PRN Reason: Severe Pain Stop: 12/01/18 15:51 Last Admin: 11/18/18 03:38 Dose: 2 mg Documented by: Multivitamins/Folic Acid/Vitamin C (Flintstones Complete Chew Tab) 1 tab PO DAILY [facility] Stop: 12/16/18 08:59 Last Admin: 11/18/18 10:37 Dose: 1 tab Documented by: Excedrin: Non- Formulary Patient's Own Med 2 ea PO Q6H PRN PRN Reason: Migraine Headache Stop: 12/18/18 12:40 Nystatin/Triamcinolone Acetonide (Mycolog Ii) 1 appln EXT BID [place] Stop: 12/15/18 20:59 Last Admin: 11/18/18 10:37 Dose: Not Given Documented by: Ondansetron HCl (Zofran) 4 mg IV Q6H PRN PRN Reason: Nausea Stop: 12/15/18 19:55 Last Admin: 11/18/18 00:22 Dose: 4 mg Documented by: Polyethylene Glycol (Miralax Powder Packet) 17 gm PO DAILY PRN PRN Reason: Constipation Stop: 12/15/18 19:55 Tramadol HCl (Ultram) 50 mg PO Q6H PRN PRN Reason: Pain Stop: 12/15/18 19:55 Last Admin: 11/18/18 00:22 Dose: 50 mg Documented by: (1) Neutropenia Neutropenia type: secondary to cancer chemotherapy Qualified Code(s): D70.1 - Agranulocytosis secondary to cancer chemotherapy; T45.1X5A - Adverse effect of antineoplastic and immunosuppressive drugs, initial encounter (2) Breast cancer Breast location: unspecified site of breast Estrogen receptor status: unspecified Laterality: left Patient sex: female Qualified Code(s): C50.912 - Malignant neoplasm of unspecified site of left female breast
[2018-11-18] MEDS: ENOXAPARIN INJ 40 MG/0.4 ML SYR SQ SCH (21:05)
[2018-11-18] MEDS: EXCEDRIN PO PRN (21:18)
[2018-11-18] MEDS ORDERED: IBUPROFEN 200 MG TAB PO STA (23:25)
[2018-11-19] MEDS: NSS + 20MEQ KCL 20 MEQ/1,000 ML BAG IV SCH ×3 (01:45→21:16)
[2018-11-19 07:39] LABS: Creatinine Clr Calc Pharmacy 114.6 ml/min; Est GFR (African American) 120.7; Est GFR (Non-African American) 104.2
[2018-11-19] MEDS ORDERED: HALOPERIDOL LACTATE 5 MG/ML 1 ML VIAL ONE (08:21)
[2018-11-19] MEDS: NYSTATIN/TRIAMCIN CR 15 GM TUBE EXT SCH ×2 (08:25→20:03)
[2018-11-19] MEDS: FLINTSTONES COMPLETE CHEWABLE TAB PO SCH (08:25)
[2018-11-19] MEDS: LOSARTAN POTASSIUM 25 MG TAB PO SCH (08:25)
[2018-11-19] MEDS ORDERED: LORazepam 2 MG/ML VIAL (IM USE) IM STA (08:47)
[2018-11-19] MEDS ORDERED: LORazepam 2 MG/ML VIAL (IM USE) IM PRN (08:52)
[2018-11-19] MEDS ORDERED: LORazepam 2 MG/4 ML VIAL ONE (08:52)
[2018-11-19 09:09] LABS: Hematocrit (blood only) 31.4 % (37-47); Hemoglobin 10.8 g/dL (12.0-16.0); Mean Corpuscular Hgb Conc 34.4 g/dL (32-36); Mean Corpuscular Volume 92.1 fL (80-100); Mean Platelet Volume 10.6 fL (7.4-10.4); Platelet Count 185 K/uL (130-400); RDW Coefficient of Variation 14.2 % (11.5-14.5); Red Blood Count 3.41 M/uL (4.2-5.4); White Blood Count 11.07 K/uL (4.8-10.8)
[2018-11-19] MEDS ORDERED: IOVERSOL 100ml IV PRN (09:46)
--- NOTE | 2018-11-19 10:00 | CT Scan Report ---
CT SCAN OF THE BRAIN COMBO CLINICAL HISTORY: Change in mental status. Breast cancer. COMPARISON STUDY: CT of the brain dated 01/17/2011. MRI of the brain dated 09/29/2018. TECHNIQUE: Axial CT scan of the brain is performed from the vertex to the skull base before and follo wing the IV administration of 92 cc of Optiray 320. IV contrast was administered without complication . A dose lowering technique was utilized adhering to the principles of ALARA. CT DOSE: 1417.98 mGy.cm FINDINGS: Brain parenchyma: The brain parenchyma is normal in appearance. There is no hemorrhage, mass effect, or evidence of acute territorial ischemia by CT criteria. No enhancing lesion is seen on the postcont rast sequences. Espinosa-white matter differentiation is preserved. No extra-axial fluid collection is se en. Ventricles, sulci, cisterns: Normal in configuration. Intracranial vasculature: The visualized intracranial vasculature at the skull base is normal in appe arance. Calvarium: No destructive calvarial lesion is seen. Sinuses and mastoids: The visualized paranasal sinuses are clear. The mastoid air cells are well pneu matized. Orbits: The bony orbits are grossly intact. IMPRESSION: There is no hemorrhage, enhancing lesion, or evidence of acute territorial ischemia by CT criteria. Electronically signed by: Jonathan Castillo M.D. 11/19/2018 9:59 AM
[2018-11-19] MEDS: DAPTOmycin 425 MG in SYRINGE 0 ML IV SCH (11:20)
[2018-11-19] MEDS: CEFEPIME 1,000 MG in SYRINGE 0 ML IV SCH ×2 (11:45→23:26)
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
[2018-11-19] MEDS: ACETAMINOPHEN 325 MG TAB PO PRN (16:40)
[2018-11-19] MEDS: EXCEDRIN PO PRN (20:03)
[2018-11-19] MEDS: ENOXAPARIN INJ 40 MG/0.4 ML SYR SQ SCH (20:03)
[2018-11-20 06:40] LABS: Hemoglobin 8.7 g/dL (12.0-16.0); Mean Corpuscular Hgb Conc 33.5 g/dL (32-36); Mean Corpuscular Volume 91.9 fL (80-100); Mean Platelet Volume 10.1 fL (7.4-10.4); Platelet Count 157 K/uL (130-400); RDW Coefficient of Variation 14.4 % (11.5-14.5); RDW Standard Deviation 48.2 fL (36.4-46.3); Red Blood Count 2.83 M/uL (4.2-5.4); White Blood Count 8.96 K/uL (4.8-10.8)
[2018-11-20 07:20] LABS: BUN Creatinine Ratio 3.6 (10-20); Calcium 8.2 mg/dl (8.5-10.1); Creatinine Clr Calc Pharmacy 141.7 ml/min; Est GFR (African American) 129.5; Est GFR (Non-African American) 111.7; Potassium 3.5 mmol/L (3.5-5.1)
[2018-11-20] MEDS: NSS + 20MEQ KCL 20 MEQ/1,000 ML BAG IV SCH (07:48)
[2018-11-20] MEDS: EXCEDRIN PO PRN ×2 (07:49→20:47)
[2018-11-20] MEDS: FLINTSTONES COMPLETE CHEWABLE TAB PO SCH (07:50)
[2018-11-20] MEDS: LOSARTAN POTASSIUM 25 MG TAB PO SCH (07:50)
[2018-11-20] MEDS: NYSTATIN/TRIAMCIN CR 15 GM TUBE EXT SCH ×2 (07:53→20:50)
[2018-11-20] MEDS: DAPTOmycin 425 MG in SYRINGE 0 ML IV SCH (11:38)
[2018-11-20] MEDS: CEFEPIME 1,000 MG in SYRINGE 0 ML IV SCH ×2 (13:00→23:48)
--- NOTE | 2018-11-20 14:33 | Hospitalist Progress Note ---
Date of Service November 20, 2018 Assessment & Plan (1) Gram positive sepsis: Meet sepsis criteria on presentation with Temp above 39 and Elevated HR and neutropenia Likely secondary to infected port Possible due to infected port Initial blood cx positive for staph aureus S/P Aport catheter removal by Vascular surgery Aport catheter tip cx was positive for staph aureus She was started on intravenous vancomycin and cefepime ID on board Recommended to change IV abx to dapto ECHO on 11/17 showed no evidence for vegetation WBC trending down to normal today Has been afebrile for over 24hrs case discussed with ID Dr. Sue recommended to add Cefepime to cover lamar negative organism since pt had a tampon Vaginal swab sent for gram stain and culture showed no growth Final repeat blood cx no growth US guided peripheral IV placed today for outpatient infusion Daptomycin should be continued for 14 days in total from 11/17. Weekly CBC, CMP and CPK level should be done while on IV daptomycin. Will discharge Cefepime since vaginal cx negative Continue monitor closely Will discharge home tomorrow (2) Neutropenia: Afebrile for about 24hrs Received chemotherapy last week Neutropenia secondary to chemo Received Neupogen as per oncologist Neutropenia has been improving and continues to improve (3) Breast cancer: Stage III with ongoing chemo Follow up with Oncology Dr. Mathew (4) Metabolic encephalopathy: Possible related to infection/delirium due to hospital setting/IV abx CT head w/and without contrast showed no hemorrhage, enhancing lesion, or evide nce of acute territorial ischemia Received IM haldo x1 Avoid any additional dose of Haldol due to QTC prolongation Continue monitor Resolved (5) Retained tampon: Mother said that her menstruation started while she was in the hospital Not sure if pt changed her tampon yesterday Tampon removed Vaginal swab sent for cx and gram stain showed no growth Discussed case with ID recommended to add Cefepime Will D/C cefepime since vaginal cx negative (6) Anemia: Hgb dropped to 8.7 today Already received today dose of lovenox Will hold on tomorrow AM dose lovenox subq if hgb drops further Denies any blood in stool and urine Monitor CBC (7) Diarrhea: Presented with a watery diarrhea C. difficile has been negative Stool culture-negative Diarrhea seems to be stopped Electrolyte imbalance Secondary to diarrhea D/C IVF f Continue monitor electrolytes Hypertension BP stable Continue losartan 25 mg daily Monitor BP Obesity S/P gastric bypass surgery DVT Px: Will hold am dose Lovenox SQ due to drop in hemoglobin If Hgb stable, please resume it Will add SCD/Ambulates Code Status Full Code Disposition: Likely discharge tomorrow Updates provided with Mother and at bedside Subjective Pt was seen and examined Lying in bed with no distress with daughter at bedside Pt said that she feels much better She said that she does not remember anything yesterday She said that she felt like she was in a dream She is back to her baseline today She has been afebrile for over 24 hrs Denies any chest pain, palpitation, dizziness and SOB Physical Exam Physical Exam: General- No acute distress Head- atraumatic Eyes- PERRL, EOMI, ENT- oropharynx clear Neck- supple, no JVD Lungs- clear to auscultation Heart- regular rhythm; no murmur Abdomen- normal bowel sounds, soft, nontender Extremities- no calf tenderness Neuro- alert, oriented x 3; PERRL, EOMI; no facial palsy; no dysarthria Skin- warm & dry Results & Data Vital Signs (Past 12 Hours) Vital Signs Temp Pulse Resp BP Pulse Ox 11/20/18 07:15 37.5 C 105 H 20 114/73 83 L (1) Neutropenia Neutropenia type: secondary to cancer chemotherapy Qualified Code(s): D70.1 - Agranulocytosis secondary to cancer chemotherapy; T45.1X5A - Adverse effect of antineoplastic and immunosuppressive drugs, initial encounter (2) Breast cancer Breast location: unspecified site of breast Estrogen receptor status: unspecified Laterality: left Patient sex: female Qualified Code(s): C50.912 - Malignant neoplasm of unspecified site of left female breast
[2018-11-20 19:27] LABS: Hematocrit (blood only) 27.3 % (37-47); Hemoglobin 9.2 g/dL (12.0-16.0)
[2018-11-20] MEDS: ENOXAPARIN INJ 40 MG/0.4 ML SYR SQ SCH (20:49)
[2018-11-21 07:53] LABS: Hematocrit (blood only) 26.2 % (37-47); Hemoglobin 8.8 g/dL (12.0-16.0); Mean Corpuscular Hgb Conc 33.6 g/dL (32-36); Mean Corpuscular Volume 91.9 fL (80-100); Mean Platelet Volume 9.8 fL (7.4-10.4); Platelet Count 172 K/uL (130-400); RDW Coefficient of Variation 14.5 % (11.5-14.5); Red Blood Count 2.85 M/uL (4.2-5.4); White Blood Count 6.98 K/uL (4.8-10.8)
[2018-11-21] MEDS: NYSTATIN/TRIAMCIN CR 15 GM TUBE EXT SCH (07:58)
[2018-11-21] MEDS: FLINTSTONES COMPLETE CHEWABLE TAB PO SCH (07:59)
[2018-11-21] MEDS: LOSARTAN POTASSIUM 25 MG TAB PO SCH (07:59)
[2018-11-21 08:08] LABS: BUN Creatinine Ratio 2.7 (10-20); Calcium 8.3 mg/dl (8.5-10.1); Creatinine Clr Calc Pharmacy 121.8 ml/min; Est GFR (African American) 123.2; Est GFR (Non-African American) 106.3; Potassium 3.1 mmol/L (3.5-5.1)
[2018-11-21] MEDS ORDERED: POTASSIUM CHLORIDE 20 MEQ TABCR PO STA (08:18)
--- NOTE | 2018-11-21 09:26 | Hospitalist Progress Note ---
Date of Service November 21, 2018 Assessment & Plan (1) Gram positive sepsis: Meet sepsis criteria on presentation with Temp above 39 and Elevated HR and neutropenia Likely secondary to infected port Initial blood cx positive for staph aureus S/P Aport catheter removal by Vascular surgery Aport catheter tip cx was positive for staph aureus She was started on intravenous vancomycin and cefepime ID on board Recommended to change IV abx to dapto ECHO on 11/17 showed no evidence for vegetation WBC trended down nicely Case discussed with ID Dr. Sue by Dr Mittal and recommended to add Cefepime to cover lamar negative organism since pt had a tampon Vaginal swab sent for gram stain and culture showed no growth Final repeat blood cx no growth US guided peripheral IV placed ON 11/20 Daptomycin should be continued for 14 days in total from 11/17. Weekly CBC, CMP and CPK level should be done while on IV daptomycin. Clinically stable to be discharged today (2) Neutropenia: Afebrile for about 24hrs Received chemotherapy last week Neutropenia secondary to chemo Received Neupogen as per oncologist WCC normalized (3) Breast cancer: Stage III with ongoing chemo Follow up with Oncology Dr. Mathew-already has an appointment (4) Metabolic encephalopathy: Possible related to infection/delirium due to hospital setting/IV abx CT head w/and without contrast showed no hemorrhage, enhancing lesion, or evidence of acute territorial ischemia Received IM haldo x1 Avoid any additional dose of Haldol due to QTC prolongation Continue monitor Resolved (5) Retained tampon: Mother said that her menstruation started while she was in the hospital Not sure if pt changed her tampon yesterday Tampon removed Vaginal swab sent for cx and gram stain showed no growth Discussed case with ID recommended to add Cefepime Will D/C cefepime since vaginal cx negative (6) Anemia: Hgb dropped to 8.7 today Already received today dose of lovenox Will hold on tomorrow AM dose lovenox subq if hgb drops further Denies any blood in stool and urine Monitor CBC-hemoglobin 8.8 on 11/21 (7) Diarrhea: Presented with a watery diarrhea C. difficile has been negative Stool culture-negative Diarrhea seems to be stopped Electrolyte imbalance Secondary to diarrhea D/C IVF f Continue monitor electrolytes Will need a small dose of potassium supplement on discharge Hypertension BP stable Continue losartan 25 mg daily Monitor BP-normalized Obesity S/P gastric bypass surgery DVT Px: Will hold am dose Lovenox SQ due to drop in hemoglobin If Hgb stable, please resume it Will add SCD/Ambulates Code Status Full Code Disposition: Will discharge today Subjective 11/16 The patient was seen and examined in medical floor She is a 48-year-old female with history of invasive left breast carcinoma grade 3, ongoing neoadjuvant chemotherapy, hypertension, obesity S/P gastric bypass surgery, dysmenorrhea and other problems presents with history of fever, generalized weakness and lethargy, nausea and decreased appetite associated with diarrhea since 1 week duration. Patient had her last chemotherapy 1 week ago. Admitted with febrile illness with neutropenia Clinically little bit better today Complains to have weakness but no other symptoms 11/17 The patient was seen and examined in medical floor She still complains to have weakness and diarrhea Denies any more fever and/or chills No abdominal pain nausea and/or vomiting 11/18 The patient was seen and examined in medical floor She has been feeling a little bit better Only complaint is generalized weakness and migraine headache No fever and/or chills, no abdominal pain nausea and vomiting 11/21 Patient was seen and examined in medical floor She has had change of mental status on of last month which is normalized without any significant clinical findings Feels a lot better today and wants to get out of the hospital Review of Systems Review of Systems: All systems reviewed and are unremarkable except as noted. Constitutional: + fatigue and + weakness Musculoskeletal: + muscle weakness (Has improved a lot) Neurologic: + generalized weakness Alert, awake and oriented x3. No focal sensory and motor deficit appreciated Physical Exam Physical Exam: No apparent distress at rest lying in bed comfortably Constitutional: well developed, well nourished, + ill appearing, + obese, cooperative and comfortable Eyes: PERRL, conjunctivae normal, anicteric sclerae ENMT: external ear and nose normal, oropharynx normal Neck: trachea midline, no thyromegaly Respiratory: normal respiratory effort and able to speak in complete sentences Auscultation: lungs clear to auscultation bilaterally Cardiovascular: Rate/Rhythm: regular rhythm and + tachycardic Heart Sounds: no murmur Vessels: brachial pulses present and radial pulses present Extremities: no pedal edema Gastrointestinal (Abdomen): Inspection/Auscultation: abdomen normal to inspection and normal bowel sounds Percussion/Palpation: abdomen soft Musculoskeletal: Extremities: extremities normal to inspection Skin: no rashes, warm and dry normal turgor Neurologic: moves all extremities and awake Cranial Nerves: EOM intact bilaterally, normal facial strength and tongue midline Psychiatric: A+Ox3, euthymic affect Orientation: cooperative Apperance: appropriately dressed, appropriately groomed and appeared stated age Affect: euthymic affect Lymphatic: no cervical or axillary lymphadenopathy Results & Data Vital Signs (Past 12 Hours) Vital Signs Temp Pulse Resp BP BP Pulse Ox 11/21/18 07:26 37.3 C 96 H 18 141/84 H 96 11/21/18 00:12 36.9 C 84 18 130/78 93 Laboratory Results Short CBC 11/20/18 11/21/18 Range/Units 19:20 07:38 WBC 6.98 (4.8-10.8) K/uL Hgb 9.2 L 8.8 L (12.0-16.0) g/dL Hct 27.3 L 26.2 L (37-47) % Plt Count 172 (130-400) K/uL BMP 11/21/18 07:38 Sodium 140 Potassium 3.1 L Chloride 105 Carbon Dioxide 30 BUN 2 L Creatinine 0.64 Glucose 87 Calcium 8.3 L Medications Administered Current Inpatient Medications Acetaminophen (Tylenol) 650 mg PO Q4H PRN PRN Reason: pain/fever Stop: 12/15/18 19:55 Last Admin: 11/19/18 16:40 Dose: 650 mg Documented by: Enoxaparin Sodium (Lovenox) 40 mg SQ Q24H [place] Stop: 12/15/18 21:29 Last Admin: 11/20/18 20:49 Dose: 40 mg Documented by: Heparin Sodium (Porcine) (Heparin Sod 100 Unit/Ml Flush) 5 ml FLUSH PRN PRN PRN Reason: Flush Stop: 12/16/18 22:59 Daptomycin 425 mg/ Syringe 8.5 mls @ 4.25 mls/min IV Q24H [place]; Protocol Stop: 11/30/18 10:59 Last Admin: 11/20/18 11:38 Dose: 4.25 mls/min Documented by: Cefepime HCl 1,000 mg/ Syringe 11.3 mls @ 5.5 mls/min IV Q12H [place]; Protocol Stop: 11/21/18 11:59 Last Admin: 11/20/18 23:48 Dose: 5.5 mls/min Documented by: Ioversol (Optiray 320 100ml) 92 ml IV ONCE PRN PRN Reason: Interaction Checking Stop: 11/23/18 09:45 Last Admin: 11/19/18 09:46 Dose: 1 ml Documented by: Loratadine (Claritin) 10 mg PO DAILY PRN PRN Reason: Allergy Symptoms Stop: 12/15/18 19:55 Losartan Potassium (Cozaar) 25 mg PO DAILY [place] Stop: 12/15/18 19:55 Last Admin: 11/21/18 07:59 Dose: 25 mg Documented by: Morphine Sulfate (Morphine Sulfate) 1 - 4 mg IV Q2H PRN PRN Reason: Severe Pain Stop: 12/01/18 15:51 Last Admin: 11/18/18 03:38 Dose: 2 mg Documented by: Multivitamins/Folic Acid/Vitamin C (Flintstones Complete Chew Tab) 1 tab PO DAILY [place] Stop: 12/16/18 08:59 Last Admin: 11/21/18 07:59 Dose: 1 tab Documented by: Excedrin: Non- Formulary Patient's Own Med 2 ea PO Q6H PRN PRN Reason: Migraine Headache Stop: 12/18/18 12:40 Last Admin: 11/20/18 20:47 Dose: 2 tab Documented by: Nystatin/Triamcinolone Acetonide (Mycolog Ii) 1 appln EXT BID [place] Stop: 12/15/18 20:59 Last Admin: 11/21/18 07:58 Dose: Not Given Documented by: Ondansetron HCl (Zofran) 4 mg IV Q6H PRN PRN Reason: Nausea Stop: 12/15/18 19:55 Last Admin: 11/18/18 19:17 Dose: 4 mg Documented by: Polyethylene Glycol (Miralax Powder Packet) 17 gm PO DAILY PRN PRN Reason: Constipation Stop: 12/15/18 19:55 Tramadol HCl (Ultram) 50 mg PO Q6H PRN PRN Reason: Pain Stop: 12/15/18 19:55 Last Admin: 11/18/18 00:22 Dose: 50 mg Documented by: (1) Neutropenia Neutropenia type: secondary to cancer chemotherapy Qualified Code(s): D70.1 - Agranulocytosis secondary to cancer chemotherapy; T45.1X5A - Adverse effect of antineoplastic and immunosuppressive drugs, initial encounter (2) Breast cancer Breast location: unspecified site of breast Estrogen receptor status: unspecified Laterality: left Patient sex: female Qualified Code(s): C50.912 - Malignant neoplasm of unspecified site of left female breast
[2018-11-21] MEDS: EXCEDRIN PO PRN (10:27)
[2018-11-21] MEDS: DAPTOmycin 425 MG in SYRINGE 0 ML IV SCH (10:29)
--- NOTE | 2018-11-21 10:31 | Infectious Disease Progress Nt ---
Date of Service November 21, 2018 Assessment & Plan (1) Gram positive sepsis: will continue dapto. has pcn allergy, would prefer to maintain Dapto. w Echo negative. Unclear if infection was isolated to port, repeat perph culture is negative, but she did have at least 1 dose of abx prior to abx. follow repeat blood cultures, if negative she will need 14 days of IV dapto from date of port removal. weekly cbc, cmp, cpk while on abx. Agree with d/c cefepime, ok for d/c from ID standpoint when otherwise stable. Subjective pt had intermittent fevers over the weekend. port culture growing MSSA as well. repeat blood cultures negative. tolerating abx. 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 wbc improved. Results & Data Vital Signs (Past 12 Hours) Vital Signs Temp Pulse Resp BP BP Pulse Ox 11/21/18 07:26 37.3 C 96 H 18 141/84 H 96 11/21/18 00:12 36.9 C 84 18 130/78 93 Laboratory Results Microbiology 11/17/18 15:50 Neck Gram Stain - Final 11/17/18 15:50 Neck Aerobic and Anaerobic Culture - Preliminary Staphylococcus aureus 11/17/18 15:50 Chest Gram Stain - Final 11/17/18 15:50 Chest Aerobic and Anaerobic Culture - Preliminary Staphylococcus aureus 11/19/18 Unknown Genital,Female Gram Stain - Final 11/19/18 Unknown Genital,Female Genital Culture - Preliminary Scant normal may present; Final report to follow. 11/16/18 Unknown Stool Shiga Toxin Test - Final 11/16/18 Unknown Stool Stool Culture - Final No Salmonella isolated, No Shigella isolated, No Campylobacter jejuni isolated. 11/16/18 11:07 Blood Aerobic Blood Culture - Preliminary No growth in Aerobic bottle after 48 hours. 11/16/18 11:07 Blood Anaerobic Blood Culture - Preliminary No growth in Anaerobic bottle after 48 hours. 11/16/18 11:35 Blood Aerobic Blood Culture - Preliminary No growth in Aerobic bottle after 48 hours. 11/16/18 11:35 Blood Anaerobic Blood Culture - Preliminary No growth in Anaerobic bottle after 48 hours. 11/15/18 15:59 Blood Aerobic Blood Culture - Final Staphylococcus aureus 11/15/18 15:59 Blood Anaerobic Blood Culture - Preliminary Staphylococcus aureus 11/15/18 17:05 Blood Aerobic Blood Culture - Preliminary Staphylococcus aureus 11/15/18 17:05 Blood Anaerobic Blood Culture - Final 11/15/18 19:00 Urine,Clean Catch Urine Culture - Final No growth - less than 1,000 colonies/mL. 11/16/18 Unknown Stool WBC Smear - Final
--- NOTE | 2018-11-21 17:48 | Discharge Summary ---
Date of Service November 21, 2018 Admission HPI Per Admitting Provider Patient is a 48-year-old female with history of left breast invasive carcinoma grade 3, ongoing neoadjuvant chemotherapy, hypertension, obesity S/P gastric bypass surgery, dysmenorrhea and other problems presents with history of fever, generalized weakness and lethargy, nausea and decreased appetite associated with diarrhea since 1 week duration. Patient had her last chemotherapy 1 week ago. She follows with oncology Dr. Mathew. She noticed having low-grade fever yesterday and developed high-grade fever today. States having generalized body ache associated with lethargy/generalized weakness. Also reports having nausea with dry heaves but denies any vomiting. She reports having loose watery nonbloody diarrhea since 4 days duration. She admits to having frontal headache which she attributes to migraine. Also reports noticing rash at the umbilical region and under her breasts for which she has been using calamine powder which seemed to help. Denies any associated abdominal pain, blood in stools. She r eports that she had her Chemo-Port infected 2 months ago for which she completed 1 week course of Bactrim at the time. Denies any history of C. difficile. Denies any history of chest pain, SOB, palpitations, dizziness, cough, hemoptysis, dysuria. Admission Exam Per Admitting Provider Physical Exam: Physical Exam: Vitals signs as noted above General Appearance:Obese, no apparent distress Head: normocephalic, Atraumatic Eyes: normal inspection, EOMI Neck: supple, Trachea midline Respiratory/Chest: Normal breath sounds, CTA Chest: Chemo port on right side Cardiovascular: S1, S2, No murmur, +Tachycardia Abdomen/GI:Soft, Non tender, Bowel sounds present Extremities/Musculoskelatal:normal inspection, no edema Neurologic/Psych:AAOX3, grossly no focal neurological deficits Skin: normal color, warm, peeling Rash noted under breast and umbilical region Principal Diagnosis Gram-positive sepsis-staph aureus bacteremia, breast cancer with ongoing chemo. Discharge Exam Constitutional well developed, well nourished, + ill appearing, + obese, cooperative and comfortable Eyes PERRL, conjunctivae normal, anicteric sclerae ENMT external ear and nose normal, oropharynx normal Neck trachea midline, no thyromegaly + neck tender (R neck near IJ site, no erythema or edema or drainage) Respiratory normal respiratory effort and able to speak in complete sentences Auscultation: lungs clear to auscultation bilaterally Cardiovascular Rate/Rhythm: regular rhythm and + tachycardic Heart Sounds: no murmur Vessels: brachial pulses present and radial pulses present Extremities: no pedal edema Gastrointestinal (Abdomen) Inspection/Auscultation: abdomen normal to inspection and normal bowel sounds Percussion/Palpation: abdomen soft Musculoskeletal Extremities: extremities normal to inspection Skin no rashes, warm and dry normal turgor Neurologic moves all extremities and awake Speech / Cognition: no expressive aphasia and no receptive aphasia Motor/Sensory: no tremor and no sensory deficit Cranial Nerves: EOM intact bilaterally, normal facial strength and tongue midline Gait: not gait assisted Psychiatric A+Ox3, euthymic affect Orientation: cooperative Apperance: appropriately dressed, appropriately groomed and appeared stated age Affect: euthymic affect Thought Process: goal directed thought process, linear/logical thought process and clear/coherent thought process Cognition: attention grossly intact and language grossly intact Estimated Intelligence: average estimated intelligence Lymphatic no cervical or axillary lymphadenopathy Discharge Data Allergies Allergy/AdvReac Type Severity Reaction Status Date / Time cashew nut Allergy Severe ANAPHYLAXIS Verified 11/15/18 18:13 pine nut Allergy Severe ANAPHYLAXIS Verified 11/15/18 18:13 pistachio nut Allergy Severe ANAPHYLAXIS Verified 11/15/18 18:13 NELSON Inhibitors Allergy Unknown cough Verified 11/15/18 18:13 Penicillins Allergy Unknown Unknown Verified 11/15/18 18:13 Consultations 11/15/18 17:58 ED Decision to Admit Stat 11/16/18 09:33 Consult Infectious Diseases Routine 11/16/18 11:10 Consult Vascular Surgery Routine Procedures Performed Operation Date: 11/17/18 14:30 Actual Procedures p Removal Of Infected Infusaport, Moderate Concious Sedation 1543 to 1559(Right) - Nick Walker MD Ordered Studies 11/17/18 12:40 EV Aport removal Routine 11/19/18 08:33 CT head/brain wo/w con Routine Hospital Course (1) Gram positive sepsis: Meet sepsis criteria on presentation with Temp above 39 and Elevated HR and neutropenia Likely secondary to infected port Initial blood cx positive for staph aureus S/P Aport catheter removal by Vascular surgery Aport catheter tip cx was positive for staph aureus She was started on intravenous vancomycin and cefepime ID on board Recommended to change IV abx to dapto ECHO on 11/17 showed no evidence for vegetation WBC trended down nicely Case discussed with ID Dr. Sue by Dr Mittal and recommended to add Cefepime to cover lamar negative organism since pt had a tampon Vaginal swab sent for gram stain and culture showed no growth Final repeat blood cx no growth US guided peripheral IV placed ON 11/20 Daptomycin should be continued for 14 days in total from 11/17. Weekly CBC, CMP and CPK level should be done while on IV daptomycin. Clinically stable to be discharged today (2) Neutropenia: Afebrile for about 24hrs Received chemotherapy last week Neutropenia secondary to chemo Received Neupogen as per oncologist WCC normalized (3) Breast cancer: Stage III with ongoing chemo Follow up with Oncology Dr. Mathew-already has an appointment (4) Metabolic encephalopathy: Possible related to infection/delirium due to hospital setting/IV abx CT head w/and without contrast showed no hemorrhage, enhancing lesion, or evidence of acute territorial ischemia Received IM haldo x1 Avoid any additional dose of Haldol due to QTC prolongation Continue monitor Resolved (5) Retained tampon: Mother said that her menstruation started while she was in the hospital Not sure if pt changed her tampon yesterday Tampon removed Vaginal swab sent for cx and gram stain showed no growth Discussed case with ID recommended to add Cefepime Will D/C cefepime since vaginal cx negative (6) Anemia: Hgb dropped to 8.7 today Already received today dose of lovenox Will hold on tomorrow AM dose lovenox subq if hgb drops further Denies any blood in stool and urine Monitor CBC-hemoglobin 8.8 on 11/21 (7) Diarrhea: Presented with a watery diarrhea C. difficile has been negative Stool culture-negative Diarrhea seems to be stopped Electrolyte imbalance Secondary to diarrhea D/C IVF f Continue monitor electrolytes Will need a small dose of potassium supplement on discharge Hypertension BP stable Continue losartan 25 mg daily Monitor BP-normalized Obesity S/P gastric bypass surgery DVT Px: Will hold am dose Lovenox SQ due to drop in hemoglobin If Hgb stable, please resume it Will add SCD/Ambulates Code Status Full Code Disposition: Will discharge today Total Time Total Time Spent Total Time Spent (In Minutes): 35 minutes Total Time Includes: Examination of the Patient, Discharge Planning, Medication Reconciliation and Communication With Other Providers Discharge Plan Discharge Items Patient Disposition: Home - Home Health Services Reason For Visit: POSSIBLE NEUTROPENIC FEVER Discharge Diagnosis: Gram-positive sepsis-staph aureus bacteremia, breast cancer with ongoing chemo. Condition: Fair Discharge Goals: Decrease discomfort, Improve function and Increase independence Activity: Resume your previous activity Non-emergency contact: Primary Care Provider Call non-emergency contact if: you have any medication questions and your symptoms worsen Follow-up/Referrals: Christy Jones MD [Primary Care Provider] - 11/25/18 11:20 am (Please keep regular appointment with the oncologist) Diet: Regular Addtl Provider Instructions: Please take precaution to avoid falls. Continue intravenous antibiotic until 30 November. Last dose of antibiotic will be on 30 November. Will need to have CBC, BMP and CPK tested at doctor's appointment 11/25/2018. Prescriptions: New potassium chloride 20 mEq tablet extended release 20 meq PO DAILY Qty: 30 RF: 0 Continued ondansetron HCl 8 mg tablet 8 mg PO Q8H PRN (Reason: Nausea) RF: 0 dexamethasone 4 mg tablet 4 mg PO DIRECTED RF: 0 losartan 25 mg tablet 25 mg PO DAILY RF: 0 epinephrine 0.3 mg/0.3 mL auto-injector 0.3 mg IM DIRECTED PRN (Reason: Anaphylaxis) RF: 0 loratadine [Claritin] 10 mg Tablet 10 mg PO DAILY PRN (Reason: Allergy Symptoms) RF: 0 Neulasta 6 mg/0.6mL syringe 6 mg subcut DIRECTED RF: 0 Flintstones Tab Chew 100 mcg Tablet,Chewable 100 mcg PO DAILY RF: 0 tramadol 50 mg Tablet 50 mg PO Q6H PRN (Reason: Pain) RF: 0 Stand-Alone Forms: [facility] Discharge Orders: Discharge Order (Routine); Ordered 11/21/18 Ordered By: Nia Garcia Admission Data Admit Date/Time: 11/15/18 18:49 Attending Provider: Nia Garcia Admit Provider: Epi Gomez Primary Care Provider: Christy Jones Other Providers: Epi Gomez ; Nia Garcia ; Jeff Mittal ; Pito Sue ; Nick Walker Service: Medical Other Interventions: Discharge Summary Assessment (RN) Last Done: 11/21/18 13:07 DC Date/Time DO NOT enter until pt leaves facility: 11/21/18 13:18
== END 2018-11-21 13:18 | disposition home health service (06) | DRG 314 ==
LOC: ED 15:15 → 2W 18:49 → SUATTDRO 18:49 → 2W 19:28

== ENCOUNTER 2020-06-27 16:45 | Inpatient (IN) ==
[2020-06-27] MEDS ORDERED: SODIUM CHLORIDE 0.9% 1000ML 1,000 ML IV ONE ×2 (17:05→17:52)
[2020-06-27] MEDS ORDERED: ONDANSETRON INJ 2 MG/ML 2 ML VIAL IV STA (17:05)
[2020-06-27] MEDS ORDERED: MoRPHine SULFATE 4 MG/ML 1 ML CARP\\VIAL IV STA (17:06)
[2020-06-27 17:40] LABS: Albumin Level 3.3 gm/dl (3.4-5.0); BUN Creatinine Ratio 14.5 (10-20); Bilirubin,Total 1.1 mg/dl (0.2-1); Calcium 8.6 mg/dl (8.5-10.1); Creatinine Clr Calc Pharmacy 79.8 ml/min; Est GFR (African American) 87.6; Est GFR (Non-African American) 75.6; Globulin 3.4 gm/dl (2.5-4.0); Potassium 3.9 mmol/L (3.5-5.1); Total Protein 6.7 gm/dl (6.4-8.2)
--- NOTE | 2020-06-27 17:52 | Emergency Department Note ---
Impression & Plan Choledocholithiasis, Abdominal pain, Transaminitis, Cholelithiasis ED Provider Note NAME: CORINE BERGMAN AGE: 49 SEX: F : 1970 ARRIVES VIA: Walk-In INFORMANT: Patient ED PROVIDER(S): Laureano Corbin DO CHIEF COMPLAINT: Abdominal pain HPI: Patient is a 49-year-old female with a past medical history of gastric bypass about 10 years ago at [facility] that presents to ER for abdominal pain. It started at 1 to 2 hours prior to arrival. Sharp stabbing in the epigastric region. Associated with nausea. No vomiting. She has never had this before. She has had an ulcer once before. She still has her gallbladder and still has her appendix. No dysuria, urgency or frequency. No vaginal bleeding or vaginal discharge. No trauma. No other exacerbating remitting factors. She denies any chest pain or shortness of breath. ROS: See above HPI for pertinent positives & negatives. A total of 10 systems reviewed and were otherwise negative. PAST MEDICAL HISTORY:See Below PAST SURGICAL HISTORY:See Below FAMILY HISTORY:See Below SOCIAL HISTORY:See Below HOME MEDICATIONS:See Below ALLERGIES:See Below VITALS:See Below PHYSICAL EXAMINATION: GENERAL: Sitting up in bed, alert, well appearing, well nourished, no distress, non-toxic EYE EXAM: normal conjunctiva. OROPHARYNX: no exudate, no erythema, lips, buccal mucosa, and tongue normal and mucous membranes are moist NECK: supple, no nuchal rigidity, no adenopathy, non-tender LUNGS: Clear to auscultation. Normal chest wall mechanics HEART: no murmurs, S1 normal and S2 normal ABDOMEN: abdomen soft, tender in the epigastric region, normo-active bowel sounds, no masses, no rebound or guarding. BACK: Back is symmetrical on inspection and there is no deformity, no midline tenderness, no CVA tenderness. SKIN: no rashes and no bruising UPPER EXTREMITIES: upper extremities are grossly normal. LOWER EXTREMITIES: No pitting edema. NEURO EXAM: Normal sensorium, cranial nerves II-XII grossly intact, normal speech, no gross weakness of arms, no gross weakness of legs. MEDICAL DECISION MAKING: Patient is a 49-year-old female who presents the ER for epigastric abdominal pain. IV was established blood was obtained. Labs show no significant leukocytosis or anemia. BMP with chloride of 110. LFTs were elevated in the 400s and bilirubin of 1.1. Lipase was unremarkable. UA was unremarkable. was negative. Covid was negative. Patient with a history of previous gastric bypass. Discussed with Dr. Aleman who was agreeable with admission as Noemy Quintana was present. CT abdomen pelvis showed distended gallbladder. Patient was given a dose of IV cefepime and broke out in a rash. She given a small dose of Benadryl to help with the redness. Triage Nursing notes reviewed. Limited review of prior medical records performed Vital Signs: reviewed and remarkable for hypotension Differential diagnosis: Differential diagnoses includes but is not limited to gastritis, peptic ulcer disease, GERD, gallbladder disease, pancreatitis, small bowel obstruction, acute coronary syndrome, pericarditis, ischemic bowel, irritable bowel disease, irritable bowel syndrome, appendicitis, diverticulitis, malignancy, hernia, urinary tract infection, torsion, perforation, trauma, infectious. ER treatment provided: See below Diagnostics interpreted by me: ECG: none Cardiac Monitoring: An order was placed for continuous cardiac monitoring. The monitor shows a rate of 65 with sinus rhythm. Laboratory studies: As stated above and show below. Imaging studies: CT abdomen pelvis as discussed above Consultation(s): Discussed with Dr. Aleman who discussed with Dr. Noemy Quintana who is agreeable evaluating the patient tomorrow Discussed with Shabnam from [facility] service Discussed with Gopal from general surgery. Procedures: none Critical Care: None Past Med/Surg History Medical History Anemia Breast cancer, left Claustrophobia History of chemotherapy Taxotere & Cytoxan x 6 Cycles, Herceptin and Pertuxumab ([id number] for 1 year) History of sepsis 10/2018 ([facility]) felt 2/2 Aport HTN (hypertension), benign Insomnia Obesity Surgical History Encounter for insertion of venous access port A-Port Placed (and then removed) Gastric bypass status for obesity 2008 History of breast biopsy 09/06/18 - Left Breast, 10/07/18 - L Axilla, 10/12/18 - Left Breast & Right Breast Biopsy History of esophagogastroduodenoscopy (EGD) History of lumpectomy of left breast 02/22/19 Hx of LASIK 1998 Family History Grandmother (Maternal) , Passed age 89 of old age Breast cancer, Onset Age: 50 Grandmother (Paternal) , Passed age 75 of Pancreatic [place] Pancreatic cancer, Onset Age: 75 Grandfather (Paternal) , Passed age 68 of Brain [place] No problems noted. Mother Thyroid cancer, Onset Age: 71 Thyroidectomy Father , Passed age 68 of [place] No problems noted. Brother No problems noted. Brother No problems noted. 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 Other Information That Helps Us Care for You: No Feels Safe at Home: Yes Childhood Exposure to Second-Hand Smoke: Yes caffeine: Yes (3-4 cups of green tea / day ) during the past year weight has: decreased > 10 lbs Dental Care, Regularly: Yes Assistive Devices: Glasses Allergies Allergies Allergy/AdvReac Type Severity Reaction Status Date / Time cashew nut Allergy Severe Anaphylaxis Verified 06/27/20 19:10 pine nut Allergy Severe Anaphylaxis Verified 06/27/20 19:10 pistachio nut Allergy Severe Anaphylaxis Verified 06/27/20 19:10 walnut Allergy Severe Anaphylaxis Verified 06/27/20 19:10 NELSON Inhibitors Allergy Unknown Cough Verified 06/27/20 19:10 latex Allergy Unknown Redness of Verified 06/27/20 19:10 Skin Penicillins Allergy Unknown Unknown Verified 06/27/20 19:10 cefepime Allergy Rash Verified 06/27/20 19:57 Home Meds Home Medications Medication Instructions Recorded Confirmed Flintstones Tab Chew 100 mcg PO DAILY 11/15/18 06/27/20 epinephrine 0.3 mg IM DIRECTED PRN 11/15/18 06/27/20 losartan 25 mg PO DAILY 11/15/18 06/27/20 cyanocobalamin (vitamin B-12) 1,000 mcg IM Q3M 12/14/18 06/27/20 omeprazole 20 mg PO DAILY 06/27/20 06/27/20 tamoxifen 20 mg PO DAILY 06/27/20 06/27/20 Results & Data (ED) Vital Signs Vital Signs - 24 hr 06/27/20 16:55 06/27/20 18:47 Temperature 36.9 C Temperature Source Temporal Artery Scan Pulse Rate 69 Pulse Rate [Left Finger] 66 Respiratory Rate 18 20 Respiratory Effort / Characteristics Non-Labored Spontaneous Respiratory Depth Normal Respiratory Pattern Regular Blood Pressure 91/59 L Blood Pressure [Right Arm] 139/87 Blood Pressure Mean 69 Blood Pressure Mean [Right Arm] 104 Blood Pressure Position Sitting Blood Pressure Position [Right Arm] Sitting Pulse Oximetry 99 98 Oxygen Delivery Method Room Air Sepsis Recent Fever Within 48 Hours No Sepsis New/Unexplained Change in Mental Status N/A Sepsis Action Taken by Nursing No Action Required Laboratory Data Result diagrams: 06/27/20 17:55 06/27/20 17:12 Lab Results 06/27/20 06/27/20 06/27/20 Range/Units 17:12 17:55 19:09 WBC 8.52 (4.8-10.8) K/uL RBC 3.84 L (4.2-5.4) M/uL Hgb 12.2 (12.0-16.0) g/dL Hct 37.2 (37-47) % MCV 96.9 (80-100) fL MCH 31.8 (25-34) pg MCHC 32.8 (32-36) g/dL RDW Std Deviation 45.3 (36.4-46.3) fL RDW Coeff of Vic 12.9 (11.5-14.5) % Plt Count 168 (130-400) K/uL MPV 9.9 (7.4-10.4) fL Immature Gran % (Auto) 0.4 % Neut % (Auto) 83.9 % Lymph % (Auto) 7.0 % [place] % (Auto) 8.5 % Eos % (Auto) 0.1 % Baso % (Auto) 0.1 % Neut # (Auto) 7.15 H (1.4-6.5) K/uL Lymph # (Auto) 0.60 L (1.2-3.4) K/uL [place] # (Auto) 0.72 H (0.11-0.59) K/uL Eos # (Auto) 0.01 (0-0.5) K/uL Baso # (Auto) 0.01 (0-0.2) K/uL Immature Gran # (Auto) 0.03 H (0.00-0.02) K/uL Sodium 143 (136-145) mmol/L Potassium 3.9 (3.5-5.1) mmol/L Chloride 110 H (98-107) mmol/L Carbon Dioxide 28 (21-32) mmol/L Anion Gap 5.0 (3-11) BUN 13 (7-18) mg/dl Creatinine 0.90 (0.6-1.2) mg/dl Est Cr Clr Drug Dosing 79.8 ml/min Est GFR ( Amer) 87.6 Est GFR (Non-Af Amer) 75.6 BUN/Creatinine Ratio 14.5 (10-20) Glucose 108 H (70-99) mg/dl Calcium 8.6 (8.5-10.1) mg/dl Total Bilirubin 1.1 H (0.2-1) mg/dl AST 434 H (15-37) U/L ALT 208 H (12-78) U/L Alkaline Phosphatase 130 H (45-117) U/L Total Protein 6.7 (6.4-8.2) gm/dl Albumin 3.3 L (3.4-5.0) gm/dl Globulin 3.4 (2.5-4.0) gm/dl Albumin/Globulin Ratio 1.0 (0.9-2) Lipase 191 (73-393) U/L Specimen Hemolysis Urine Color Urine Appearance (Clear) Urine pH (4.5-7.5) Ur Specific [place] (1.000-1.030) Urine Protein (Negative) Urine Glucose (UA) (Negative) Urine Ketones (Negative) Urine Blood (Negative) Urine Nitrite (Negative) Urine Bilirubin (Negative) Urine Urobilinogen (Negative) Ur Leukocyte Esterase (Negative) Urine WBC (Auto) (0-5) /hpf Urine RBC (Auto) (0-4) /hpf U Hyaline Cast (Auto) (0-5) /lpf U Epithel Cells (Auto) (0-5) /lpf Urine Bacteria (Auto) (Negative) Urine Test (Negative) COVID-19 Eval Order Covid19 IDNow atMWVC SARS-CoV-2, RNA, NAAT (NEGATIVE) 06/27/20 06/27/20 06/27/20 Range/Units 19:09 19:32 19:32 WBC (4.8-10.8) K/uL RBC (4.2-5.4) M/uL Hgb (12.0-16.0) g/dL Hct (37-47) % MCV (80-100) fL MCH (25-34) pg MCHC (32-36) g/dL RDW Std Deviation (36.4-46.3) fL RDW Coeff of Ivc (11.5-14.5) % Plt Count (130-400) K/uL MPV (7.4-10.4) fL Immature Gran % (Auto) % Neut % (Auto) % Lymph % (Auto) % [place] % (Auto) % Eos % (Auto) % Baso % (Auto) % Neut # (Auto) (1.4-6.5) K/uL Lymph # (Auto) (1.2-3.4) K/uL [place] # (Auto) (0.11-0.59) K/uL Eos # (Auto) (0-0.5) K/uL Baso # (Auto) (0-0.2) K/uL Immature Gran # (Auto) (0.00-0.02) K/uL Sodium (136-145) mmol/L Potassium (3.5-5.1) mmol/L Chloride (98-107) mmol/L Carbon Dioxide (21-32) mmol/L Anion Gap (3-11) BUN (7-18) mg/dl Creatinine (0.6-1.2) mg/dl Est Cr Clr Drug Dosing ml/min Est GFR ( Amer) Est GFR (Non-Af Amer) BUN/Creatinine Ratio (10-20) Glucose (70-99) mg/dl Calcium (8.5-10.1) mg/dl Total Bilirubin (0.2-1) mg/dl AST (15-37) U/L ALT (12-78) U/L Alkaline Phosphatase (45-117) U/L Total Protein (6.4-8.2) gm/dl Albumin (3.4-5.0) gm/dl Globulin (2.5-4.0) gm/dl Albumin/Globulin Ratio (0.9-2) Lipase (73-393) U/L Specimen Hemolysis Urine Color Yellow Urine Appearance Clear (Clear) Urine pH 8.0 H (4.5-7.5) Ur Specific [place] 1.012 (1.000-1.030) Urine Protein Negative (Negative) Urine Glucose (UA) Negative (Negative) Urine Ketones Negative (Negative) Urine Blood Negative (Negative) Urine Nitrite Negative (Negative) Urine Bilirubin Negative (Negative) Urine Urobilinogen Negative (Negative) Ur Leukocyte Esterase Trace H (Negative) Urine WBC (Auto) 1-5 (0-5) /hpf Urine RBC (Auto) 0-4 (0-4) /hpf U Hyaline Cast (Auto) 0 (0-5) /lpf U Epithel Cells (Auto) 20-30 H (0-5) /lpf Urine Bacteria (Auto) Negative (Negative) Urine Test Negative (Negative) COVID-19 Eval Order SARS-CoV-2, RNA, NAAT NEGATIVE (NEGATIVE) Administered Medications Lactated Ringer's (Lr) 1,000 mls @ 115 mls/hr IV .[id number] LOUIS Stop: 07/27/20 20:14 Last Admin: 06/27/20 20:40 Dose: 115 mls/hr Documented by: [id number] Discontinued Medications Diphenhydramine HCl (Diphenhydramine 50 Mg/Ml Vial) 25 mg IV NOW STA Stop: 06/27/20 19:16 Last Admin: 06/27/20 19:21 Dose: 25 mg Documented by: [id number] Sodium Chloride (Nss 1000ml) 1,000 mls @ 999 mls/hr IV .Q1H1M ONE Stop: 06/27/20 18:05 Last Admin: 06/27/20 18:26 Dose: 999 mls/hr Documented by: [id number] Sodium Chloride (Nss 1000ml) 1,000 mls @ 999 mls/hr IV .Q1H1M ONE Stop: 06/27/20 18:52 Last Admin: 06/27/20 18:46 Dose: 999 mls/hr Documented by: [id number] Cefepime HCl (Maxipime) 2,000 mg in 20 mls @ 5 mls/min IV NOW STA; Protocol Stop: 06/27/20 18:48 Last Admin: 06/27/20 19:04 Dose: 5 mls/min Documented by: [id number] Pantoprazole Sodium 40 mg/ (Syringe) 10 mls @ 5 mls/min IV NOW ONE Stop: 06/27/20 20:31 Last Admin: 06/27/20 20:40 Dose: 5 mls/min Documented by: [id number] Morphine Sulfate (Morphine Sulfate 4 Mg/Ml 1 Ml Carp\Vial) 4 mg IV NOW STA Stop: 06/27/20 17:07 Last Admin: 06/27/20 18:45 Dose: 4 mg Documented by: [id number] Ondansetron HCl (Ondansetron Inj 2 Mg/Ml 2 Ml Vial) 4 mg IV NOW STA Stop: 06/27/20 17:06 Last Admin: 06/27/20 18:46 Dose: 4 mg Documented by: [id number] Discharge Plan Visit Data Chief Complaint: Abdominal Pain Stated Complaint: ABD PAIN ED Provider: Laureano Corbin Discharge Problem: Choledocholithiasis, Abdominal pain, Transaminitis, Cholelithiasis Patient Disposition: Admitted As Inpatient Discharge Instructions Interventions: ED Discharge Assessment Last Done: 06/27/20 20:56 Discharge Problem: Abdominal pain Qualifiers: Abdominal location: unspecified location Qualified Code(s): R10.9 - Unspecified abdominal pain Cholelithiasis Qualifiers: Cholelithiasis location: gallbladder Cholecystitis acuity: acute
[2020-06-27 18:10] LABS: Basophils # (auto) 0.01 K/uL (0-0.2); Basophils % (auto) 0.1 %; Eosinophils # (auto) 0.01 K/uL (0-0.5); Eosinophils % (auto) 0.1 %; Hematocrit (blood only) 37.2 % (37-47); Hemoglobin 12.2 g/dL (12.0-16.0); Immature Granulocytes # (auto) 0.03 K/uL (0.00-0.02); Immature Granulocytes % (auto) 0.4 %; Mean Corpuscular Hemoglobin 31.8 pg (25-34); Mean Corpuscular Hgb Conc 32.8 g/dL (32-36); Mean Corpuscular Volume 96.9 fL (80-100); Mean Platelet Volume 9.9 fL (7.4-10.4); Monocytes # (auto) 0.72 K/uL (0.11-0.59); Monocytes % (auto) 8.5 %; Neutrophils # (auto) 7.15 K/uL (1.4-6.5); Neutrophils % (auto) 83.9 %; Platelet Count 168 K/uL (130-400); RDW Coefficient of Variation 12.9 % (11.5-14.5); RDW Standard Deviation 45.3 fL (36.4-46.3); Red Blood Count 3.84 M/uL (4.2-5.4); White Blood Count 8.52 K/uL (4.8-10.8)
[2020-06-27] MEDS ORDERED: CEFEPIME 2,000 MG/20 ML VIAL IV STA (18:45)
--- NOTE | 2020-06-27 18:51 | CT Scan Report ---
ABDOMEN AND PELVIS CT WITH ORAL CONTRAST CT DOSE: 626.91 mGy.cm HISTORY: epigastric abd pain w/ bypass drink just prior ov TECHNIQUE: Multiaxial CT images of the abdomen and pelvis were performed following the use of oral co ntrast. A dose lowering technique was utilized adhering to the principles of ALARA. COMPARISON STUDY: PET CT 10/08/2018. FINDINGS: The lung bases are clear. No pneumoperitoneum. No pneumatosis. No fractures within the visu alized osseous structures. Mild left breast skin thickening may be due to post therapeutic changes. S tatus post Juan Miguel-en-Y gastric bypass. There is no contrast within the excluded portion of the stomach. Tiny hiatus hernia is noted. The unenhanced liver, spleen, adrenal glands, pancreas, and kidneys are within normal limits. No renal or ureteral stones. No hydronephrosis. The gallbladder is mildly dist ended. There appears to be a punctate gallstone. No inflammatory change adjacent to the gallbladder. Normal caliber abdominal aorta. No retroperitoneal lymphadenopathy. No pelvic free fluid. Small calci fication adjacent to the lower uterine segment. The bladder is unremarkable. The ovaries are within n ormal limits. No bowel wall thickening or obstruction. Normal appendix. IMPRESSION: 1. No bowel wall thickening or obstruction. 2. Normal appendix. 3. No hydronephrosis. 4. Mildly distended gallbladder with probable cholelithiasis. Consider follow-up right upper quadrant ultrasound if the patient is complaining of right upper quadrant pain. 5. Status post Juan Miguel-en-Y gastric bypass. ACT 112: Negative or not required by law. Electronically signed by: Joseph Bowers M.D. 06/27/2020 6:50 PM
[2020-06-27] MEDS ORDERED: diphenhydrAMINE 50 MG/ML VIAL IV STA (19:15)
[2020-06-27 19:50] LABS: Pregnancy Test, Urine Negative (Negative)
[2020-06-27 19:54] LABS: Appearance Urine Clear (Clear); Bacteria Urine Automated Negative (Negative); Bilirubin Urine Negative (Negative); Blood Urine Negative (Negative); Cast Urine Automated 0 /lpf (0-5); Color Urine Yellow; Epithelial Cell Urine Auto 20-30 /lpf (0-5); Glucose Urine UA Negative (Negative); Ketones Urine Negative (Negative); Leukocyte Esterase Urine Trace (Negative); Nitrite Urine Negative (Negative); Protein Urine Negative (Negative); RBC Urine Automated 0-4 /hpf (0-4); Specific Gravity Urine 1.012 (1.000-1.030); Urobilinogen Urine Negative (Negative)
--- NOTE | 2020-06-27 20:04 | History & Physical Report ---
Date of Service June 27, 2020 Assessment & Plan (1) Abdominal pain: (2) Transaminitis: (3) Cholelithiasis: This is a 49-year-old female who has significant past medical history of gastric bypass in 2008, postoperative intestinal malabsorption, HTN, migraine, history of jejunal ulcer, left breast CA status post lumpectomy, chemo and radiation who presents to ED secondary to abdominal pain x2 hours prior to arrival. Concern for cholecystitis with possible choledocholithiasis. She is afebrile and WBC WNL. Transaminitis with AST 434, ALT 208, alk phos 130, total bilirubin 1.1 Obtain right upper quadrant ultrasound ED provider discussed with GI and general surgery - likely surgical intervention tomorrow, no MRCP needed Admit to medical Strict n.p.o. after midnight IVF LR at 115 cc/h IV Cipro and Flagyl Patient was started on IV cefepime in ED -develop mild rash to right forearm, was given Benadryl and resolved IV Protonix once daily IV Dilaudid severe pain, IV APAP mild pain (4) HTN (hypertension), benign: continue losartan (5) Jejunal ulcer: EGD 03/04/[address] on IV PPI while NPO (6) DVT prophylaxis: SCD/TEDS for now due to possible procedure reassess in a.m. need for chemical prophylaxis FULL CODE PCP: Dr. Ireland Dispo: admit to med/surg Pt was seen and examined in collaboration with Dr. Watkins, please see addendum History of Present Illness Chief Complaint: Abdominal pain x2 hours prior to arrival. Primary Care Provider: Salome Holliday MD This is a 49-year-old female who has significant past medical history of gastric bypass in 2008, postoperative intestinal malabsorption, HTN, migraine, history of jejunal ulcer, left breast CA status post lumpectomy, chemo and radiation who presents to ED secondary to abdominal pain x2 hours prior to arrival. Pain was located in epigastrium and radiated to mid substernal region and to umbilicus. Pain came on abruptly, was constant, made better with lying flat, nothing improves symptoms and associated with nausea. She did not vomit and denies any known fever. She did have episode of briana colored stool this morning. Her last meal was approximately 2 hours prior to pain onset and was a half a sandwich. She denies having similar symptoms in past. History of jejunal ulcer, but symptoms different. She did feel chilled but denies sweats, lightheadedness, dizziness, syncope, chest pain, shortness of breath, cough, palpitations, diarrhea, dysuria, increased urgency or frequency with urination, hematuria. Her appetite is otherwise been normal. She does elicit early satiety and occasional epigastric pain upon eating. In ED she remained hemodynamically stable. Lab work notable for transaminitis with elevated AST 434, ALT 208, alk phosphatase 130, total bili 1.1. CT scan abdomen pelvis Concerning for mildly distended gallbladder with probable cholelithiasis. She did receive IV fluid and IV morphine for pain control. She also received IV cefepime, but developed rash to right upper extremity upon administration. Benadryl was given and rash improved. Allergies Allergy/AdvReac Type Severity Reaction Status Date / Time cashew nut Allergy Severe Anaphylaxis Verified 06/27/20 19:10 pine nut Allergy Severe Anaphylaxis Verified 06/27/20 19:10 pistachio nut Allergy Severe Anaphylaxis Verified 06/27/20 19:10 walnut Allergy Severe Anaphylaxis Verified 06/27/20 19:10 NELSON Inhibitors Allergy Unknown Cough Verified 06/27/20 19:10 latex Allergy Unknown Redness of Verified 06/27/20 19:10 Skin Penicillins Allergy Unknown Unknown Verified 06/27/20 19:10 cefepime Allergy Rash Verified 06/27/20 19:57 Home Medications Medication Instructions Recorded Confirmed Type Flintstones Tab Chew 100 mcg PO DAILY 11/15/18 06/27/20 History epinephrine 0.3 mg IM DIRECTED PRN 11/15/18 06/27/20 History losartan 25 mg PO DAILY 11/15/18 06/27/20 History cyanocobalamin (vitamin B-12) 1,000 mcg IM Q3M 12/14/18 06/27/20 History omeprazole 20 mg PO DAILY 06/27/20 06/27/20 History tamoxifen 20 mg PO DAILY 06/27/20 06/27/20 History Past Med/Surg History Medical History Anemia Breast cancer, left Claustrophobia History of chemotherapy Taxotere & Cytoxan x 6 Cycles, Herceptin and Pertuxumab (q0jmmat for 1 year) History of sepsis 10/2018 ([facility]) felt 06/25 Aport HTN (hypertension), benign Insomnia Obesity Surgical History Encounter for insertion of venous access port A-Port Placed (and then removed) Gastric bypass status for obesity 2008 History of breast biopsy 09/06/18 - Left Breast, 10/07/18 - L Axilla, 10/12/18 - Left Breast & Right Breast Biopsy History of esophagogastroduodenoscopy (EGD) History of lumpectomy of left breast 02/22/19 Hx of LASIK 1998 Family History Grandmother (Maternal) , Passed age 89 of old age Breast cancer, Onset Age: 50 Grandmother (Paternal) , Passed age 75 of Pancreatic [place] Pancreatic cancer, Onset Age: 75 Grandfather (Paternal) , Passed age 68 of Brain [place] No problems noted. Mother Thyroid cancer, Onset Age: 71 Thyroidectomy Father , Passed age 68 of [place] No problems noted. Brother No problems noted. Brother No problems noted. 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 Other Information That Helps Us Care for You: No Feels Safe at Home: Yes Childhood Exposure to Second-Hand Smoke: Yes caffeine: Yes (3-4 cups of green tea / day ) during the past year weight has: decreased > 10 lbs Dental Care, Regularly: Yes Assistive Devices: None Review of Systems Review of Systems: All systems reviewed & are unremarkable except as noted in HPI & below Physical Exam Physical Exam: Constitutional: WD/WN, vitals as above, NAD, sitting up in bed, pleasant, conversing easily Head: Normocephalic, Atraumatic Eyes: PERRL, conjunctivae normal, anicteric sclerae ENMT: external ear and nose normal, oropharynx normal Neck: trachea midline, no thyromegaly normal visual inspection Respiratory: normal respiratory effort, lungs clear to auscultation, no wheeze, rales, rhonchi. Normal insp/exp effort, no accessory muscle use Cardiovascular: RRR, no murmur, no edema Vessels: no JVD or carotid bruit Chest: normal inspection of chest Abdomen: normal bowel sounds, soft, nontender, no hepatosplenomegaly Musculoskeletal: no cyanosis or clubbing, extremities motor strength 5/5 Skin: macular erythematous rash to volar aspect of R forearm, proximal to IV site, warm and dry normal turgor Neurologic: PERRL, EOMI, accommodation nl, no face palsy, no dysarthria CN's II-XI intact bilaterally and moves all extremities Psychiatric: A+Ox3, euthymic affect Lymphatic: no cervical or axillary lymphadenopathy : deferred Results & Data Results [facility] Vital Signs (Past 12 Hours) Vital Signs Temp Pulse Pulse Resp BP BP Pulse Ox 06/27/20 19:49 72 16 119/82 99 06/27/20 18:47 66 20 139/87 98 06/27/20 16:55 36.9 C 69 18 91/59 [address] abd/pelvis: IMPRESSION: 1. No bowel wall thickening or obstruction. 2. Normal appendix. 3. No hydronephrosis. 4. Mildly distended gallbladder with probable cholelithiasis. Consider follow-up right upper quadrant ultrasound if the patient is complaining of right upper quadrant pain. 5. Status post Juan Miguel-en-Y gastric bypass. Medications Administered Discontinued Medications Diphenhydramine HCl (Diphenhydramine 50 Mg/Ml Vial) 25 mg IV NOW STA Stop: 06/27/20 19:16 Last Admin: 06/27/20 19:21 Dose: 25 mg Documented by: [id number] Sodium Chloride (Nss 1000ml) 1,000 mls @ 999 mls/hr IV .Q1H1M ONE Stop: 06/27/20 18:05 Last Admin: 06/27/20 18:26 Dose: 999 mls/hr Documented by: [id number] Sodium Chloride (Nss 1000ml) 1,000 mls @ 999 mls/hr IV .Q1H1M ONE Stop: 06/27/20 18:52 Last Admin: 06/27/20 18:46 Dose: 999 mls/hr Documented by: [id number] Cefepime HCl (Maxipime) 2,000 mg in 20 mls @ 5 mls/min IV NOW STA; Protocol Stop: 06/27/20 18:48 Last Admin: 06/27/20 19:04 Dose: 5 mls/min Documented by: [id number] Morphine Sulfate (Morphine Sulfate 4 Mg/Ml 1 Ml Carp\Vial) 4 mg IV NOW STA Stop: 06/27/20 17:07 Last Admin: 06/27/20 18:45 Dose: 4 mg Documented by: [id number] Ondansetron HCl (Ondansetron Inj 2 Mg/Ml 2 Ml Vial) 4 mg IV NOW STA Stop: 06/27/20 17:06 Last Admin: 06/27/20 18:46 Dose: 4 mg Documented by: [id number] COVID-19 Results Results COVID-19 Adm Lab Results: RBC 3.84 M/uL (4.2-5.4) L 06/27/20 WBC 8.52 K/uL (4.8-10.8) 06/27/20 Hgb 12.2 g/dL (12.0-16.0) 06/27/20 Hct 37.2 % (37-47) 06/27/20 Plt Count 168 K/uL (130-400) 06/27/20 Neutrophils (%) (Auto) 83.9 % 06/27/20 Lymphocytes (%) (Auto) 7.0 % 06/27/20 Monocytes # (Auto) 0.72 K/uL (0.11-0.59) H 06/27/20 Eosinophils # (Auto) 0.01 K/uL (0-0.5) 06/27/20 Immature Granulocyte % (Auto) 0.4 % 06/27/20 Neutrophils # (Auto) 7.15 K/uL (1.4-6.5) H 06/27/20 Lymphocytes # (Auto) 0.60 K/uL (1.2-3.4) L 06/27/20 Monocytes # (Auto) 0.72 K/uL (0.11-0.59) H 06/27/20 Eosinophils # (Auto) 0.01 K/uL (0-0.5) 06/27/20 Basophils # (Auto) 0.01 K/uL (0-0.2) 06/27/20 Immature Granulocyte # (Auto) 0.03 K/uL (0.00-0.02) H 06/27/20 Na 143 mmol/L (136-145) 06/27/20 K 3.9 mmol/L (3.5-5.1) 06/27/20 Cl 110 mmol/L (98-107) H 06/27/20 CO2 28 mmol/L (21-32) 06/27/20 Anion Gap 5.0 (3-11) 06/27/20 BUN 13 mg/dl (7-18) 06/27/20 Creatinine 0.90 mg/dl (0.6-1.2) 06/27/20 BUN/Creatinine Ratio 14.5 (10-20) 06/27/20 Glucose Level 108 mg/dl (70-99) H 06/27/20 Ca 8.6 mg/dl (8.5-10.1) 06/27/20 Total Bilirubin 1.1 mg/dl (0.2-1) H 06/27/20 AST/SGOT 434 U/L (15-37) H 06/27/20 ALT/SGPT 208 U/L (12-78) H 06/27/20 Alkaline Phosphatase 130 U/L (45-117) H 06/27/20 Total Protein 6.7 gm/dl (6.4-8.2) 06/27/20 Albumin 3.3 gm/dl (3.4-5.0) L 06/27/20 Globulin 3.4 gm/dl (2.5-4.0) 06/27/20 Albumin/Globulin Ratio 1.0 (0.9-2) 06/27/20 SARS-CoV-2, RNA, NAAT NEGATIVE (NEGATIVE) 06/27/20 Code Status & VTE Plan Code Status Full Code VTE Prophylaxis Plan VTE Prophylaxis will be ordered: Yes Supervising Physician Co-Signing Physician Notes Care coordinated with Shabnam Abad PA-C. Agree with above note. Patient seen and examined. Please refer to her notes for full details. Vital signs reviewed. Physical exam: General exam: Alert and oriented. Not in acute distress. CVS: S1 and S2 heard, regular rate and rhythm, no murmurs. RS: Clear to auscultation, no wheezing or crackles. ABD: Soft, bowel sounds present, mild epigastric tenderness, no distention. 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 EXT: No edema, no erythema. Labs: Reviewed. Assessment and plan: 49F presents with abdominal pain epigastric region. First episode . Not assocated with any food intake. Currently pain under control No fevers. Imaging studies showing cholecystitis. Developed rash with cefepme but improved now. Hemodynamics stable. No chest pain or sob. 1. Cholecystitis npo, iv fluids, iv pain meds prn iv cipro and flagyl f/u lfts Surgery consult Hx of Jejunal ulcer iv ppi Other diagnosis and plan of care as per Brando Crabtree PA-C. Rodger chaves MD.
[2020-06-27] MEDS ORDERED: PANTOprazole 40 MG in SYRINGE 0 ML IV ONE (20:30)
--- NOTE | 2020-06-27 20:38 | Surgery Consultation ---
Date of Consultation June 27, 2020 Assessment & Plan (1) Cholelithiasis: Patient has been admitted to the hospital by the medical service. We will proceed in the following manner: Antibiotic should continue and have been ordered in the form of Cipro and Flagyl Patient should be made n.p.o. after midnight Analgesics should be provided Medical service has ordered a right upper quadrant ultrasound we will follow for the results of this. Due to her elevated LFTs there is concern for choledocholithiasis. Gastroenterology has been consulted for this reason. Due to the patient's gastric bypass history and ERCP cannot be performed in the routine fashion and must be laparoscopically assisted. The treating physician in the emergency department has discussed with Dr. Noemy Quintana. He will plan on performing an ERCP with laparoscopic assistance with Dr. Turpin of general surgery tentatively followed by a laparoscopic cholecystectomy. History of Present Illness Reason for Consultation: Cholecystitis History of Present Illness This is a 49-year-old female who presented to the emergency department secondary to abdominal pain that began earlier today. Patient notes that the pain was located mainly in the epigastric area and also in the right upper quadrant. She noted that the pain was worse if she was sitting up and felt better if she lied back and stayed still. Pain did not radiate to her shoulder or anywhere else. She did not have any nausea or vomiting. She denies any fevers, shakes, chills. She notes that she has never had this issue before. She presented to the emergency department where she was noted to be afebrile and hemodynamically stable. Labs included a CBC where her white blood cell count, hemoglobin, hematocrit, and platelet count were all noted to be within normal range. Chemistry profile showed sodium and potassium were both within normal range as were her BUN and creatinine. LFTs revealed an elevated total bilirubin of 1.1, AST of 434, ALT of 208, and alkaline phosphatase of 130. Her lipase was not elevated. Urine test was noted to be negative and a Covid test was negative. Imaging consisted of a CT scan of her abdomen. The study demonstrated a distended gallbladder with likely gallstones. Due to the findings noted above we have been asked to see in consultation. At the time of my exam she was resting comfortably in bed in no distress. It is noteworthy to mention that this patient did have a gastric bypass. She notes that this was done in [place] at [facility] proximately 10 years ago. Allergies Allergy/AdvReac Type Severity Reaction Status Date / Time cashew nut Allergy Severe Anaphylaxis Verified 06/27/20 19:10 pine nut Allergy Severe Anaphylaxis Verified 06/27/20 19:10 pistachio nut Allergy Severe Anaphylaxis Verified 06/27/20 19:10 walnut Allergy Severe Anaphylaxis Verified 06/27/20 19:10 NELSON Inhibitors Allergy Unknown Cough Verified 06/27/20 19:10 latex Allergy Unknown Redness of Verified 06/27/20 19:10 Skin Penicillins Allergy Unknown Unknown Verified 06/27/20 19:10 cefepime Allergy Rash Verified 06/27/20 19:57 Home Medications Medication Instructions Recorded Confirmed Type Flintstones Tab Chew 100 mcg PO DAILY 11/15/18 06/27/20 History epinephrine 0.3 mg IM DIRECTED PRN 11/15/18 06/27/20 History losartan 25 mg PO DAILY 11/15/18 06/27/20 History cyanocobalamin (vitamin B-12) 1,000 mcg IM Q3M 12/14/18 06/27/20 History omeprazole 20 mg PO DAILY 06/27/20 06/27/20 History tamoxifen 20 mg PO DAILY 06/27/20 06/27/20 History Patient History Medical History Anemia Breast cancer, left Claustrophobia History of chemotherapy Taxotere & Cytoxan x 6 Cycles, Herceptin and Pertuxumab ([id number] for 1 year) History of sepsis 10/2018 ([facility]) felt 2/2 Aport HTN (hypertension), benign Insomnia Obesity Surgical History Encounter for insertion of venous access port A-Port Placed (and then removed) Gastric bypass status for obesity 2008 History of breast biopsy 09/06/18 - Left Breast, 10/07/18 - L Axilla, 10/12/18 - Left Breast & Right Breast Biopsy History of esophagogastroduodenoscopy (EGD) History of lumpectomy of left breast 02/22/19 Hx of LASIK 1998 Family History Grandmother (Maternal) , Passed age 89 of old age Breast cancer, Onset Age: 50 Grandmother (Paternal) , Passed age 75 of Pancreatic [place] Pancreatic cancer, Onset Age: 75 Grandfather (Paternal) , Passed age 68 of Brain [place] No problems noted. Mother Thyroid cancer, Onset Age: 71 Thyroidectomy Father , Passed age 68 of [place] No problems noted. Brother No problems noted. Brother No problems noted. 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 Safe at Home: Yes Childhood Exposure to Second-Hand Smoke: Yes caffeine: Yes (3-4 cups of green tea / day ) during the past year weight has: decreased > 10 lbs Dental Care, Regularly: Yes Assistive Devices: Glasses Review of Systems Constitutional: no fever and no chills Eyes: no diplopia Ear, Nose, Mouth, Throat: no ear pain Respiratory: no cough and no dyspnea Cardiovascular: no chest pain Gastrointestinal: + abdominal pain; no nausea and no vomiting Genitourinary: no dysuria Musculoskeletal: no back pain Integumentary: no rash Neurologic: no generalized weakness Physical Exam Constitutional: well developed and well nourished; no acute distress Eyes: no conjunctival abnormality ENMT: Ears: no hearing impairment Neck: trachea midline Respiratory: normal respiratory effort, lungs clear to auscultation Cardiovascular: Rate/Rhythm: regular rate and regular rhythm Gastrointestinal (Abdomen): Abdomen is soft and nondistended. Bowel sounds are present. Palpation did elicit some pain in the right upper quadrant as well as the epigastric area. Perez sign was noted to be negative. There is no rebound tenderness or guarding. Musculoskeletal: No calf tenderness Skin: no rashes, warm and dry Neurologic: moves all extremities Psychiatric: A+Ox3, euthymic affect Results & [facility]) Vital Signs (Past 12 Hours) Vital Signs Temp Pulse Pulse Resp BP BP Pulse Ox 06/27/20 19:49 72 16 119/82 99 02/04/21 18:47 66 20 139/87 98 06/27/20 16:55 36.9 C 69 18 91/59 L 99 PG Care Time/CCT Total # of Minutes Spent Total Time Spent with Patient: Total time spent is greater than 50% in coordination of care (as documented) at patient's floor/unit and/or counseling patient: Coding Level of Care Code 93431 Inpt Consult Level 5 Diagnoses Cholelithiasis K80.20
[2020-06-27] MEDS: LACTATED RINGER'S 1,000 ML IV SCH (20:40)
[2020-06-27] MEDS ORDERED: HYDROmorphone INJ 0.5 MG/0.5 ML SYR IV PRN (21:34)
[2020-06-27] MEDS ORDERED: NON-FORMULARY MEDICATION (Omeprazole 20 mg capsule,delayed release(DR/EC)) PO SCH (21:34)
[2020-06-27] MEDS ORDERED: ACETAMINOPHEN 325 MG TAB PO PRN (21:34)
[2020-06-27] MEDS ORDERED: ACETAMINOPHEN 1,000 MG/100 ML VIAL IV PRN (21:44)
[2020-06-27] MEDS: CIPROFLOXACIN / D5W 400 MG/200 ML BAG IV SCH (22:31)
[2020-06-28] MEDS: metroNIDAZOLE 500 MG/100 ML BAG IV SCH ×3 (02:00→19:29)
--- NOTE | 2020-06-28 07:00 | Ultrasound Report ---
ABDOMINAL ULTRASOUND, RIGHT UPPER QUADRANT HISTORY: Right upper quadrant abdominal pain. COMPARISON: CT of the abdomen and pelvis June 27, 2020. FINDINGS: No hepatic lesions are identified. There is no biliary ductal dilatation. The common bile d uct measures 3 mm in caliber. The pancreatic body is normal. The head and tail are slightly obscured. There are gallstones within the gallbladder, including a stone within the gallbladder neck. Sonograp hic Perez sign could not be assessed for in this patient. Gallbladder is mildly distended. There is no pericholecystic fluid. There is mild gallbladder wall thickening. There is no right hydronephrosis . IMPRESSION: 1. Cholelithiasis, mild gallbladder distention and mild gallbladder wall thickening. Acute cholecysti tis cannot be excluded. A hepatobiliary scan could be obtained as indicated. 2. No biliary ductal dilatation ACT 112: Negative or not required by law. Electronically signed by: Parag Hinton M.D. 06/28/2020 6:58 AM
--- NOTE | 2020-06-28 08:49 | Gastrointestinal Consultation ---
Date of Consultation June 28, 2020 Assessment & Plan (1) Choledocholithiasis: 49 year female admitted with abd pain, onset yesterday with associated nausea, no vomiting, admitted through the ED w/ elevated LFTs, gb thickening on CT and suspected gallstones NPO for lap assisted ERCP Antiemetics PRN Analgesia PRN Can continue PPI as ordered LR maintenance fluids Can conitnue ABX as ordered Thank you for allowing us to participate in the care of this patient. Please call with any acute changes, questions or concerns. Please see addendum below with additional recommendation from my supervising physician. Supervising Physician Co-Signing Physician Notes I performed a history and physical examination of the patient today, including specifically on physical exam - soft abdomen. I have discussed the patient's management with the advanced practitioner. Please refer to the nurse practitioner's note for the documented findings and plan of care. Lap assisted ERCP. I explained risk, benefit and alternatives, also need to leave a PEG tube in the evnt a stent is needed. History of Present Illness Reason for Consultation: elevated LFTs Requesting Physician: Olivia Attending Physician: Cheng Baker, History of Present Illness 49 year old female w/ history of RYGB, postop intestinal malabsorption, HTN, migraine, history of jejunal ulcer, left breast CA s/p lumpectomy/chemo/radi ation who presents to ED for evaluation of abdominal pain, onset yesterday. Pain was explained as abrupt onset, epigastric w/ radiation through to back. Associated nausea but no vomiting. Had a artist woodblock stool yesterday but otherwise no change in BMs. She does tell me she has had episodic post-prandial abd cramping over the last few months but nothing as severe as her symptoms yesterday. In the ED, notable for transaminitis with elevated AST 434, ALT 208, alk phosphatase 130, total bili 1.1. CT w/ mildly distended gallbladder and cholelithiasis. Discussion last evening between Gen Surg and GI and planned for combined procedure this AM. Allergies Allergy/AdvReac Type Severity Reaction Status Date / Time cashew nut Allergy Severe Anaphylaxis Verified 06/27/20 19:10 pine nut Allergy Severe Anaphylaxis Verified 06/27/20 19:10 pistachio nut Allergy Severe Anaphylaxis Verified 06/27/20 19:10 walnut Allergy Severe Anaphylaxis Verified 06/27/20 19:10 NELSON Inhibitors Allergy Unknown Cough Verified 06/27/20 19:10 latex Allergy Unknown Redness of Verified 06/27/20 19:10 Skin Penicillins Allergy Unknown Unknown Verified 06/27/20 19:10 cefepime Allergy Rash Verified 06/27/20 19:57 Home Medications Medication Instructions Recorded Confirmed Type Flintstones Tab Chew 100 mcg PO DAILY 11/15/18 06/27/20 History epinephrine 0.3 mg IM DIRECTED PRN 11/15/18 06/27/20 History losartan 25 mg PO DAILY 11/15/18 06/27/20 History cyanocobalamin (vitamin B-12) 1,000 mcg IM Q3M 12/14/18 06/27/20 History omeprazole 20 mg PO DAILY 06/27/20 06/27/20 History tamoxifen 20 mg PO DAILY 06/27/20 06/27/20 History Patient History Medical History Anemia Breast cancer, left Claustrophobia History of chemotherapy Taxotere & Cytoxan x 6 Cycles, Herceptin and Pertuxumab ([id number] for 1 year) History of sepsis 10/2018 ([facility]) felt 06/25 Aport HTN (hypertension), benign Insomnia Obesity Surgical History Encounter for insertion of venous access port A-Port Placed (and then removed) Gastric bypass status for obesity 2008 History of breast biopsy 09/06/18 - Left Breast, 10/07/18 - L Axilla, 10/12/18 - Left Breast & Right Breast Biopsy History of esophagogastroduodenoscopy (EGD) History of lumpectomy of left breast 02/22/19 Hx of EB 1998 Family History Grandmother (Maternal) , Passed age 89 of old age Breast cancer, Onset Age: 50 Grandmother (Paternal) , Passed age 75 of Pancreatic [place] Pancreatic cancer, Onset Age: 75 Grandfather (Paternal) , Passed age 68 of Brain [place] No problems noted. Mother Thyroid cancer, Onset Age: 71 Thyroidectomy Father , Passed age 68 of [place] No problems noted. Brother No problems noted. Brother No problems noted. 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 Other Information That Helps Us Care for You: No Feels Safe at Home: Yes Childhood Exposure to Second-Hand Smoke: Yes caffeine: Yes (3-4 cups of green tea / day ) during the past year weight has: decreased > 10 lbs Dental Care, Regularly: Yes Assistive Devices: None Review of Systems Constitutional: no fever, no chills and no fatigue Respiratory: no cough and no dyspnea Cardiovascular: no chest pain and no dyspnea Gastrointestinal: + abdominal pain; no nausea, no coffee ground emesis, no blood in stools and no melena Physical Exam Constitutional: well developed and well nourished; no acute distress Neck: trachea midline Respiratory: normal respiratory effort Gastrointestinal (Abdomen): Percussion/Palpation: abdomen soft; abdomen nontender, no guarding, abdomen not rigid, no abdominal mass and no ascites Skin: no rashes, warm and dry Results & Data ([facility]) Vital Signs (Past 12 Hours) Vital Signs Temp Pulse Pulse Resp BP BP Pulse Ox 06/27/20 22:52 36.7 C 69 16 106/69 98 06/27/20 21:42 36.9 C 69 18 125/76 100 06/27/20 20:56 71 16 121/78 98 Laboratory Results 06/27/20 06/27/20 06/27/20 Range/Units 19:32 19:32 19:09 WBC (4.8-10.8) K/uL RBC (4.2-5.4) M/uL Hgb (12.0-16.0) g/dL Hct (37-47) % MCV (80-100) fL MCH (25-34) pg MCHC (32-36) g/dL RDW Std Deviation (36.4-46.3) fL RDW Coeff of Vic (11.5-14.5) % Plt Count (130-400) K/uL MPV (7.4-10.4) fL Immature Gran % (Auto) % Neut % (Auto) % Lymph % (Auto) % [place] % (Auto) % Eos % (Auto) % Baso % (Auto) % Neut # (Auto) (1.4-6.5) K/uL Lymph # (Auto) (1.2-3.4) K/uL [place]itt # (Auto) (0.11-0.59) K/uL Eos # (Auto) (0-0.5) K/uL Baso # (Auto) (0-0.2) K/uL Immature Gran # (Auto) (0.00-0.02) K/uL Sodium (136-145) mmol/L Potassium (3.5-5.1) mmol/L Chloride (98-107) mmol/L Carbon Dioxide (21-32) mmol/L Anion Gap (3-11) BUN (7-18) mg/dl Creatinine (0.6-1.2) mg/dl Est Cr Clr Drug Dosing ml/min Est GFR ( Amer) Est GFR (Non-Af Amer) BUN/Creatinine Ratio (10-20) Glucose (70-99) mg/dl Calcium (8.5-10.1) mg/dl Total Bilirubin (0.2-1) mg/dl AST (15-37) U/L ALT (12-78) U/L Alkaline Phosphatase (45-117) U/L Total Protein (6.4-8.2) gm/dl Albumin (3.4-5.0) gm/dl Globulin (2.5-4.0) gm/dl Albumin/Globulin Ratio (0.9-2) Lipase (73-393) U/L Specimen Hemolysis Urine Color Yellow Urine Appearance Clear (Clear) Urine pH 8.0 H (4.5-7.5) Ur Specific [place] 1.012 (1.000-1.030) Urine Protein Negative (Negative) Urine Glucose (UA) Negative (Negative) Urine Ketones Negative (Negative) Urine Blood Negative (Negative) Urine Nitrite Negative (Negative) Urine Bilirubin Negative (Negative) Urine Urobilinogen Negative (Negative) Ur Leukocyte Esterase Trace H (Negative) Urine WBC (Auto) 1-5 (0-5) /hpf Urine RBC (Auto) 0-4 (0-4) /hpf U Hyaline Cast (Auto) 0 (0-5) /lpf U Epithel Cells (Auto) 20-30 H (0-5) /lpf Urine Bacteria (Auto) Negative (Negative) Urine Test Negative (Negative) COVID-19 Eval Order SARS-CoV-2, RNA, NAAT NEGATIVE (NEGATIVE) 06/27/20 06/27/20 06/27/20 Range/Units 19:09 17:55 17:12 WBC 8.52 (4.8-10.8) K/uL RBC 3.84 L (4.2-5.4) M/uL Hgb 12.2 (12.0-16.0) g/dL Hct 37.2 (37-47) % MCV 96.9 (80-100) fL MCH 31.8 (25-34) pg MCHC 32.8 (32-36) g/dL RDW Std Deviation 45.3 (36.4-46.3) fL RDW Coeff of Vic 12.9 (11.5-14.5) % Plt Count 168 (130-400) K/uL MPV 9.9 (7.4-10.4) fL Immature Gran % (Auto) 0.4 % Neut % (Auto) 83.9 % Lymph % (Auto) 7.0 % Dewitt % (Auto) 8.5 % Eos % (Auto) 0.1 % Baso % (Auto) 0.1 % Neut # (Auto) 7.15 H (1.4-6.5) K/uL Lymph # (Auto) 0.60 L (1.2-3.4) K/uL Dewitt # (Auto) 0.72 H (0.11-0.59) K/uL Eos # (Auto) 0.01 (0-0.5) K/uL Baso # (Auto) 0.01 (0-0.2) K/uL Immature Gran # (Auto) 0.03 H (0.00-0.02) K/uL Sodium 143 (136-145) mmol/L Potassium 3.9 (3.5-5.1) mmol/L Chloride 110 H (98-107) mmol/L Carbon Dioxide 28 (21-32) mmol/L Anion Gap 5.0 (3-11) BUN 13 (7-18) mg/dl Creatinine 0.90 (0.6-1.2) mg/dl Est Cr Clr Drug Dosing 79.8 ml/min Est GFR ( Amer) 87.6 Est GFR (Non-Af Amer) 75.6 BUN/Creatinine Ratio 14.5 (10-20) Glucose 108 H (70-99) mg/dl Calcium 8.6 (8.5-10.1) mg/dl Total Bilirubin 1.1 H (0.2-1) mg/dl AST 434 H (15-37) U/L ALT 208 H (12-78) U/L Alkaline Phosphatase 130 H (45-117) U/L Total Protein 6.7 (6.4-8.2) gm/dl Albumin 3.3 L (3.4-5.0) gm/dl Globulin 3.4 (2.5-4.0) gm/dl Albumin/Globulin Ratio 1.0 (0.9-2) Lipase 191 (73-393) U/L Specimen Hemolysis Urine Color Urine Appearance (Clear) Urine pH (4.5-7.5) Ur Specific [place] (1.000-1.030) Urine Protein (Negative) Urine Glucose (UA) (Negative) Urine Ketones (Negative) Urine Blood (Negative) Urine Nitrite (Negative) Urine Bilirubin (Negative) Urine Urobilinogen (Negative) Ur Leukocyte Esterase (Negative) Urine WBC (Auto) (0-5) /hpf Urine RBC (Auto) (0-4) /hpf U Hyaline Cast (Auto) (0-5) /lpf U Epithel Cells (Auto) (0-5) /lpf Urine Bacteria (Auto) (Negative) Urine Test (Negative) COVID-19 Eval Order Covid19 [facility] SARS-CoV-2, RNA, NAAT (NEGATIVE)
[2020-06-28] MEDS: TAMOXIFEN CITRATE 10 MG TABLET PO SCH (08:52)
[2020-06-28] MEDS: LOSARTAN POTASSIUM 25 MG TAB PO SCH (08:52)
[2020-06-28] MEDS: MULTIVITAMIN CHEWABLE TAB PO SCH (08:52)
[2020-06-28] MEDS ORDERED: NON-FORMULARY MEDICATION (Omeprazole 20 mg capsule,delayed release(DR/EC)) PO SCH (09:00)
--- NOTE | 2020-06-28 09:12 | Surgery Progress Note ---
Date of Service June 28, 2020 Assessment & Plan (1) Choledocholithiasis: In the face of LFTs with her history of Juan Miguel-en-Y gastric bypass our only option really would be to do a laparoscopic assisted ERCP. I have discussed this with Dr. Noemy Quintana. I discussed with the patient the technique as well as the risks which would include bleeding, infection, injury to another organ, bile leaks, gastrotomy leaks, DVT, PE, DE, CVA etc. We would perform a cholecystectomy at the same time. Following all this I answered her questions. We are planning to proceed later today with a laparoscopic assisted ERCP as well as cholecystectomy. (2) Cholelithiasis: Admission and Anticipated Discharge Date Admission Date: June 27, 2020 Subjective Patient feeling better today. The abdominal pain she came up with is improved. Physical Exam Physical Exam: No acute distress Heart is regular rate and rhythm Lungs are clear Abdomen is soft with minimal epigastric tenderness. There is no guarding rebound or rigidity Results & Data ([facility]) Vital Signs (Past 12 Hours) Vital Signs Temp Pulse Resp BP Pulse Ox 06/28/20 08:54 36.8 C 63 18 98/61 L 91 06/27/20 22:52 36.7 C 69 16 106/69 98 06/27/20 21:42 36.9 C 69 18 125/76 100 (1) Cholelithiasis Cholecystitis acuity: acute Cholelithiasis location: gallbladder
[2020-06-28] MEDS: LACTATED RINGER'S 1,000 ML IV SCH ×3 (09:15→19:30)
[2020-06-28] MEDS: CIPROFLOXACIN / D5W 400 MG/200 ML BAG IV SCH ×2 (09:15→21:39)
--- NOTE | 2020-06-28 09:21 | Hospitalist Progress Note ---
Date of Service June 28, 2020 Assessment & Plan (1) Abdominal pain: (2) Transaminitis: (3) Cholelithiasis: This is a 49-year-old female who has significant past medical history of gastric bypass in 2008, postoperative intestinal malabsorption, HTN, migraine, history of jejunal ulcer, left breast CA status post lumpectomy, chemo and radiation who presents to ED secondary to abdominal pain x2 hours prior to arrival. Concern for cholecystitis Pos choledocholithiasis. She is afebrile and WBC WNL. Transaminitis with AST 434, ALT 208, alk phos 130, total bilirubin 1.1 Obtain right upper quadrant ultrasound ED provider discussed with GI and general surgery - likely surgical intervention tomorrow, no MRCP needed Strict n.p.o. after midnight IVF LR at 115 cc/h IV Cipro and Flagyl Patient was started on IV cefepime in ED -develop mild rash to right forearm, was given Benadryl and resolved IV Protonix once daily IV Dilaudid severe pain, IV APAP mild pain (4) HTN (hypertension), benign: continue losartan (5) Jejunal ulcer: EGD 03/04/[address] on IV PPI while NPO (6) DVT prophylaxis: SCD/TEDS for now due to possible procedure reassess in a.m. need for chemical prophylaxis FULL CODE PCP: Dr. Ireland Dispo: med/surg labs Checked ROS-No Headache, No Visual Changes, No Nausea, No Vomiting, No Fever, No Chills, No Neck Pain or Stiffness, No Chest Pain, No Palpitations, No SOB, No [place], No Cough, No Sputum, No Wheezing, No Abdominal Pain, No Diarrhea, No Hematemesis, No Hemoptysis, No Unexpected Weight Loss, No Flank pain, No Melena, No Hematochezia, No Frequency, No Urgency, No Burning, No Hematuria, No Rashes, No Diaphoresis. Appetite is Normal Physical Exam Gen-AAO x 3, NAD, Afebrile Head-NCAT, EOMI, PERRLA, Anicteric Sclera, No Posterior Pharyngeal Erythema Neck-Supple, No JVD, No Thyromegaly, No Masses, No LAD, No Bruits Lungs-Clear to Auscultation Bilaterally, No Rales, No Rhonchi, No Wheezing, No Crepitus Chest-No S4, +S1, +S2, No S3, No Murmurs, No Rubs, No Gallops, No Ectopy Abdomen-Soft, Bowel Sounds Present, Non Tender, Non Distended, No Hepatomegaly, No Splenomegaly, No Palpable Masses, No Rebound, No Rigidity, No Guarding Musculoskeletal-Full Range of Motion Bilaterally, No CVAT Extremities-No Cyanosis, No Clubbing, No Edema Nuero-Cranial Nerves II-XII grossly intact, Motor WNL, DTRs WNL, Strength WNL, Non Focal Psych-Normal Mood Admission and Anticipated Discharge Date Admission Date: June 27, 2020 Results & Data Results & Data ([facility]) Vital Signs (Past 12 Hours) Vital Signs Temp Pulse Resp BP Pulse Ox 06/28/20 08:54 36.8 C 63 18 98/61 L 91 06/27/20 22:52 36.7 C 69 16 106/69 98 06/27/20 21:42 36.9 C 69 18 125/76 100 (1) Abdominal pain Abdominal location: unspecified location Qualified Code(s): R10.9 - Unspecified abdominal pain (2) Cholelithiasis Cholecystitis acuity: acute Cholelithiasis location: gallbladder
[2020-06-28] MEDS: PANTOprazole 40 MG in SYRINGE 0 ML IV SCH (12:00)
--- NOTE | 2020-06-28 13:26 | History & Physical Bridge Note ---
Date of Service June 28, 2020 History & Physical Bridge Note I have examined the patient, reviewed the History & Physical and in the interval since the performance of the History & Physical I have noted the following changes of clinical significance: no changes noted Lap assisted ERCP
[2020-06-28] MEDS ORDERED: CLINDAMYCIN 900 MG in DEXTROSE 5% 50 ML IV ONE (14:00)
--- NOTE | 2020-06-28 14:01 | Anesthesiology Consultation ---
Date of Service June 28, 2020 Assessment & Plan (1) Encounter for pre-operative examination: Chart Review Chart Review: Acceptable Risk for Surgery and Patient NOT seen in Pre Admission Testing Consults Requested none History Surgery Operation Date: 06/28/20 11:35 Proposed Procedures p Laparoscopy Assisted ERCP, possible Laparoscopic Cholecystectomy, Open - DO juliano Christie ERCP - Boubacar Arora MD Height/Weight Height: 5 ft 3 in Weight: 87.1 kg Allergies Allergy/AdvReac Type Severity Reaction Status Date / Time cashew nut Allergy Severe Anaphylaxis Verified 06/27/20 19:10 pine nut Allergy Severe Anaphylaxis Verified 06/27/20 19:10 pistachio nut Allergy Severe Anaphylaxis Verified 06/27/20 19:10 walnut Allergy Severe Anaphylaxis Verified 06/27/20 19:10 NELSON Inhibitors Allergy Unknown Cough Verified 06/27/20 19:10 latex Allergy Unknown Redness of Verified 06/27/20 19:10 Skin Penicillins Allergy Unknown Unknown Verified 06/27/20 19:10 cefepime Allergy Rash Verified 06/27/20 19:57 Medications Home Medications Medication Instructions Recorded Confirmed Last Taken Flintstones Tab Chew 100 mcg PO DAILY 11/15/18 06/27/20 12/18/18 epinephrine 0.3 mg IM DIRECTED PRN 11/15/18 06/27/20 Unknown losartan 25 mg PO DAILY 11/15/18 06/27/20 12/18/18 cyanocobalamin (vitamin B-12) 1,000 mcg IM Q3M 12/14/18 06/27/20 Unknown omeprazole 20 mg PO DAILY 06/27/20 06/27/20 Unknown tamoxifen 20 mg PO DAILY 06/27/20 06/27/20 Unknown Active Medications Generic Name Dose Route Start Last Admin Trade Name Freq PRN Reason Stop Dose Admin Hydromorphone HCl 0.5 mg 06/27/20 21:34 06/28/20 06:20 Hydromorphone Inj 0.5 Mg/0.5 Ml Syr IV 07/11/20 21:33 0.5 mg Q4H PRN Administration severe pain Lactated Ringer's 1,000 mls @ 115 mls/hr 06/27/20 20:15 06/28/20 13:45 Lr IV 07/27/20 20:14 0 mls/hr .[id number] [facility] Infusion Acetaminophen 1,000 mg in 100 mls @ 200 mls/hr 06/27/20 21:44 06/28/20 13:00 Ofirmev IV 06/30/20 21:43 Infused Q8H PRN Infusion Mild Pain Protocol Ciprofloxacin 400 mg in 200 mls @ 100 mls/hr 06/27/20 22:00 06/28/20 11:15 Cipro / D5w IV 07/07/20 21:59 Infused Q12H [facility] Infusion Metronidazole 500 mg in 100 mls @ 100 mls/hr 06/27/20 22:00 06/28/20 07:30 Flagyl IV 07/07/20 21:59 Infused Q8H [facility] Infusion Pantoprazole Sodium 40 mg/ 10 mls @ 5 mls/min 06/28/20 11:00 06/28/20 12:00 Syringe IV 07/28/20 10:59 5 mls/min DAILY@1100 [facility] Administration Losartan Potassium 25 mg 06/28/20 09:00 06/28/20 08:52 Losartan Potassium 25 Mg Tab PO 07/28/20 08:59 Not Given DAILY [facility] Multivitamins/Folic Acid/Vitamin C 1 tab 06/28/20 09:00 06/28/20 08:52 Multivitamin Chewable Tab PO 07/28/20 08:59 Not Given DAILY [facility] Tamoxifen Citrate 20 mg 06/28/20 09:00 06/28/20 08:52 Tamoxifen Citrate 10 Mg Tablet PO 07/28/20 08:59 Not Given DAILY [facility] NPO Date Last Intake of Fluids: 06/27/20 Time Last Intake of Fluids: 22:00 Date Last Intake of Solids: 06/27/20 Last Intake of Solids Comment: Before ED arrival Past Medical History Medical History Anemia Breast cancer, left Claustrophobia History of chemotherapy Taxotere & Cytoxan x 6 Cycles, Herceptin and Pertuxumab ([id number] for 1 year) History of sepsis 10/2018 ([facility]) felt 2/2 Aport HTN (hypertension), benign Insomnia Obesity Past Family History Family History Grandmother (Maternal) , Passed age 89 of old age Breast cancer, Onset Age: 50 Grandmother (Paternal) , Passed age 75 of Pancreatic [place] Pancreatic cancer, Onset Age: 75 Grandfather (Paternal) , Passed age 68 of Brain [place] No problems noted. Mother Thyroid cancer, Onset Age: 71 Thyroidectomy Father , Passed age 68 of [place] No problems noted. Brother No problems noted. Brother No problems noted. Other Has no children No pertinent family history Past Surgical History Surgical History Encounter for insertion of venous access port A-Port Placed (and then removed) Gastric bypass status for obesity 2008 History of breast biopsy 09/06/18 - Left Breast, 10/07/18 - L Axilla, 10/12/18 - Left Breast & Right Breast Biopsy History of esophagogastroduodenoscopy (EGD) History of lumpectomy of left breast 02/22/19 Hx of EB 1998 Social History Smoking Status: Never smoker Do You Dip or Chew Tobacco: No Hx Alcohol Use: Yes alcohol intake frequency: holidays/special occasions only Hx Substance Use: No substance use type: does not use Physical Exam Vital Signs Last Vital Signs Temp 36.8 C 06/28/20 08:54 Pulse 63 06/28/20 08:54 Resp 18 06/28/20 08:54 BP 98/61 L 06/28/20 08:54 Pulse Ox 91 06/28/20 08:54 Testing Laboratory Results 06/27/20 17:55 06/27/20 17:12 Urine Color Yellow 06/27/20 19:32 Urine Appearance Clear (Clear) 06/27/20 19:32 Urine pH 8.0 (4.5-7.5) H 06/27/20 19:32 Ur Specific [place] 1.012 (1.000-1.030) 06/27/20 19:32 Urine Protein Negative (Negative) 06/27/20 19:32 Urine Glucose (UA) Negative (Negative) 06/27/20 19:32 Urine Ketones Negative (Negative) 06/27/20 19:32 Urine Nitrite Negative (Negative) 06/27/20 19:32 Ur Leukocyte Esterase Trace (Negative) H 06/27/20 19:32 Urine WBC (Auto) 1-5 /hpf (0-5) 06/27/20 19:32 Urine RBC (Auto) 0-4 /hpf (0-4) 06/27/20 19:32 U Hyaline Cast (Auto) 0 /lpf (0-5) 06/27/20 19:32 U Epithel Cells (Auto) 20-30 /lpf (0-5) H 06/27/20 19:32 Urine Bacteria (Auto) Negative (Negative) 06/27/20 19:32 Urine Test Negative (Negative) 06/27/20 19:32 06/27/20 19:32 Urine Test Negative
[2020-06-28] MEDS ORDERED: BUPIVACAINE 0.5 % 5 MG/1 ML MPF 30ML VIAL ONE (14:02)
[2020-06-28] MEDS ORDERED: EPINEPHrine INJ 1 MG/ML AMP ONE (14:02)
[2020-06-28] MEDS ORDERED: MIDAZOLAM HCL 1 MG/ML 2ML VIAL ONE (14:46)
[2020-06-28] MEDS ORDERED: fentaNYL citrate 100 MCG/2 ML VIAL ONE ×3 (14:46→17:01)
[2020-06-28] MEDS ORDERED: fentaNYL citrate 100 MCG/2 ML VIAL IV PRN (14:47)
[2020-06-28] MEDS ORDERED: HYDROmorphone INJ 1 MG/ML SYRINGE IV PRN (14:47)
[2020-06-28] MEDS ORDERED: ATROPINE SULFATE 0.1 MG/ML 10ML SYR IV PRN (14:47)
[2020-06-28] MEDS ORDERED: ePHEDrine sulfate 50 MG/ML AMP IV PRN (14:47)
[2020-06-28] MEDS ORDERED: PROMETHAZINE HCL 12.5 MG in SODIUM CHLORIDE 0.9% 50 ML IV PRN (14:47)
[2020-06-28] MEDS ORDERED: ONDANSETRON INJ 2 MG/ML 2 ML VIAL IV PRN (14:47)
[2020-06-28] MEDS ORDERED: ONDANSETRON INJ 2 MG/ML 2 ML VIAL ONE ×2 (15:03→17:14)
[2020-06-28] MEDS ORDERED: LIDOCAINE HCL 2% 2 ML VIAL/AMP(20MG/ML) INFIL ONE (15:03)
[2020-06-28] MEDS ORDERED: GLYCOPYRROLATE 0.2 MG/ML VIAL ONE (15:03)
[2020-06-28] MEDS ORDERED: PROPOFOL IV EMULSION 10 MG/ML 20 ML VIAL IV ONE ×2 (15:03→17:05)
[2020-06-28] MEDS ORDERED: ROCURONIUM BROMIDE 10 MG/ML 5 ML VIAL IV ONE ×3 (15:03→17:06)
[2020-06-28] MEDS ORDERED: NEOSTIGMINE METHYLSULFATE 5 MG/5 ML SYR ONE (15:03)
[2020-06-28] MEDS ORDERED: DEXAMETHASONE SOD INJ 4 MG/ML VIAL ONE (15:03)
[2020-06-28] MEDS ORDERED: PHENYLEPHRINE HCL 10 MG/ML VIAL ONE (15:17)
--- NOTE | 2020-06-28 17:13 | GI REPORT ---
Patient Name: Madeline Lou Procedure Date: 06/28/2020 2:49 PM Date of : 1970 Admit Type: Inpatient Age: 49 Gender: Female Attending MD: Boubacar Arora MD Procedure: ERCP Providers: Boubacar Arora MD Referring MD: Cheng Baker Do, Matthew D. Davidson Indications: Evaluation and possible treatment of bile duct stone(s), Elevated liver enzymes Medicines: General Anesthesia Complications: No immediate complications. Estimated Blood Loss: Estimated blood loss: none. Procedure: Pre-Anesthesia Assessment: - Prior to the procedure, a History and Physical was performed, and patient medications, allergies and sensitivities were reviewed. The patient's tolerance of previous anesthesia was reviewed. - The risks and benefits of the procedure and the sedation options and risks were discussed with the patient. All questions were answered and informed consent was obtained. - Patient identification and proposed procedure were verified prior to the procedure by the physician and the nurse. The procedure was verified in the procedure room. - Pre-procedure physical examination revealed no contraindications to sedation. After obtaining informed consent, the scope was passed under direct vision. Throughout the procedure, the patient's blood pressure, pulse, and oxygen saturations were monitored continuously. The Scope was introduced through the surgical gastrostomy, and advanced to the duodenum and used to inject contrast into the bile duct. The ERCP was accomplished without difficulty. The patient tolerated the procedure well. Findings: A elementary instructional coach film of the abdomen was obtained. Surgical clips, consistent with a previous cholecystectomy, were seen in the area of the right upper quadrant of the abdomen. The scope was advanced to a normal major papilla in the descending duodenum without detailed examination of the upper GI tract. The ventral pancreatic duct was inadvertently cannulated. The wire was kept in place. The bile duct could not be easily cannulated with a sphincterotome hence a biliary pre-cut sphincterotomy was made with a monofilament needle knife using a freehand technique using ERBE electrocautery. There was no post-sphincterotomy bleeding. A 0.035 inch straight standard wire was passed into the biliary tree. The Fusion OMNI sphincterotome was passed over the guidewire and the bile duct was then deeply cannulated. Contrast was injected. I personally interpreted the bile duct images. Ductal flow of contrast was adequate. Image quality was adequate. Contrast extended to the main bile duct. Opacification of the main bile duct was successful. The maximum diameter of the ducts was 7 mm. The biliary tree was swept with a 15 mm balloon starting at the bifurcation. Three yellow stones were removed. No stones remained. All wires were removed and no stents were placed. Impression: - Successful Laparoscopic assisted ERCP. - Choledocholithiasis was found. Complete removal was accomplished by biliary sphincterotomy and balloon extraction. Recommendation: - Avoid aspirin and nonsteroidal anti-inflammatory medicines for 5 days. - Advance diet per surgical team. - Recall GI if needed. Boubacar Arora MD 06/28/2020 5:12:55 PM This report has been signed electronically. Note Initiated On: 06/28/2020 2:49 PM Number of Addenda: 0 I attest to the content of the Intraoperative Record and orders documented therein, exceptions below {[id number]}
--- NOTE | 2020-06-28 17:17 | Fluoroscopy Report ---
FL ERCP biliary ductal CLINICAL HISTORY: EXPLORE DUCTS COMPARISON STUDY: None. FLUOROSCOPY TIME: 1 minute and 14 seconds. FINDINGS: 10 fluoroscopic spot images of the right upper quadrant were submitted for review. An endos cope is seen within the second portion of the duodenum. The ampulla was cannulated. Guidewires are se en within the main pancreatic duct and common bile duct. Contrast was injected into the common bile d uct. This is followed by a balloon sweep. Prior cholecystectomy. IMPRESSION: Fluoroscopy provided for ERCP. ACT 112: Negative or not required by law. Electronically signed by: Joseph Bowers M.D. 06/28/2020 5:15 PM
--- NOTE | 2020-06-28 17:19 | Operative Report ---
Post Operative Report Pre & Post Diagnosis Operation Date: 06/28/20 11:35 Pre-Op Diagnosis: CHOLEDOCHOLITHIASIS Post-Op Diagnosis: CHOLEDOCHOLITHIASIS I identified the patient and participated in the time-out.: Yes Procedure Operation Date: 06/28/20 11:35 Actual Procedures p Laparoscopy Assisted ERCP, Laparoscopic Cholecystectomy(Not Applicable) - Alex Turpin DO s ERCP(Not Applicable) - Boubacar Arora MD Surgeon Boubacar Arora MD Crystal Lapper None Estimated Blood Loss 0 Findings See Below (CBD stones removed) Specimens None Description of Procedure Laparoscopic assisted ERCP I attest to the content of the Intraoperative Record and any orders documented therein. Any exceptions are noted below.
--- NOTE | 2020-06-28 17:56 | Operative Report ---
PG Post Operative Report Pre & Post Diagnosis Operation Date: 06/28/20 11:35 Pre-Op Diagnosis: CHOLEDOCHOLITHIASIS; history of marge-en-y gastric bypass Post-Op Diagnosis: CHOLEDOCHOLITHIASIS; cholelithiasis; cholecystitis I identified the patient and participated in the time-out.: Yes Procedure Operation Date: 06/28/20 11:35 Actual Procedures p Laparoscopy Gastrostomy/Assisted ERCP, Laparoscopic Cholecystectomy(Not Applicable) - DO juliano Christie ERCP(Not Applicable) - Boubacar Arora MD Surgeon Souleymane Turpin, Face Man None Estimated Blood Loss 25 Findings See Below (CBD stones removed) Specimens gallbladder Description of Procedure After informed consent was obtained the patient was taken to the operating room and placed in supine position. After successful intubation the abdomen was sterilely prepped and draped in usual fashion. A supraumbilical incision was made with an 11 blade scalpel and carried down through the soft tissue using electrocautery. The anterior rectus fascia was opened using electrocautery and two #0 Vicryl stay sutures were placed. Peritoneum was elevated with hemostats and incised under direct vision using a Metzenbaum scissor. A finger sweep was performed. A 12 mm Robles trocar was placed and the abdomen was insufflated to 18 mmHg. Laparoscope was inserted and the abdomen was examined in 360 degrees. The gallbladder itself was enlarged as well as inflamed. I was able to use an old scar in the left upper quadrant in place a 15 mm port. A right upper quadrant 5 mm port was placed followed by a second right upper quadrant 5 mm port which would later be converted to a 12 mm port. The patient was placed in reverse Trendelenburg position. She was also slightly air planed to the left. The gallbladder was grasped and elevated superiorly and laterally. A [place] dissector was used to take down adhesions around the neck of the gallbladder. The cystic artery was anterior. It was skeletonized with the [place] dissector clipped twice proximally once distally and transected using a laparoscopic scissor. The cystic duct was then identified skeletonized and clipped as well. It was slightly enlarged and I had to use a 10 mm clip eyeglass fitter for the cystic duct. I then used electrocautery to remove the gallbladder from the gallbladder fossa. A small hole was made in the gallbladder during this process releasing some bile into the right upper quadrant. This was immediately suctioned and irrigated until all irrigant was clear. Once I removed the gallbladder it was placed into an Endo Catch bag and removed from the camera port site. Thorough irrigation was performed. At the end of this portion the procedure there was adequate hemostasis and no evidence of any bile leaks. Next I was able to manipulate her gastric remnant from her prior gastric bypass. I followed the Marge limb up to the gastrojejunal anastomosis which appeared normal. I picked a spot on the body of the stomach and placed a 2-0 Tycron pursestring. A harmonic scalpel was then used to make a gastrostomy. At this point we draped off the abdomen and Dr. Noemy Quintana performed his ERCP through the 15 mm port site. I stayed throughout his portion of the procedure and helped hold the stomach itself near the 15 mm port to prevent excess trauma to the stomach. He was able to successfully perform the ERCP and was able to extract multiple common bile duct stones. Please see his dictation for his portion of the procedure. Once he completed the ERCP he scrubbed out of the case. We reprepped the left side of the abdomen removed the 15 mm trocar and replace it with a sterile 15 mm trocar. We changed our gloves. Next I used 2-[address] stay stitches from the serosa and mucosa on the lateral and medial side of the gastrostomy as well as the midportion. I was able to use these to elevate the gastrostomy and then used 2 firings of a NILESH purple cartridge 60 mm linear stapler to close the gastrostomy. The lumen of the stomach was widely patent and there was no evidence of a stricture. There were 2 areas of slight oozing along the staple line and I oversewed these with 2-0 Tycron stitching. We then thoroughly irrigated the entire upper abdomen. Again there was no evidence of any bile leaks. A 10 flat Ayden-Kelly drain was placed into the right upper quadrant and brought out through one of the port sites. It was secured to the skin using 2-0 nylon. A final look around the abdomen showed no other abnormalities. The trochars were all removed and the abdomen desufflated. The fascia of the camera port was closed using 0 Vicryl in [id number] fashion. All the wounds were irrigated. The 15 mm port was closed with a deep layer with 3-0 Vicryl and the skin layer using 4-0 Monocryl. The remainder the incisions were closed using 4-0 Monocryl. Marcaine with epinephrine were injected around all of the incisions for postoperative analgesia and skin glue used as a dressing. The patient was awakened extubated and transferred to recovery in stable condition. My physician business assistant was present through the entire case. She assisted with exposure and running the camera as well as with wound closure and dressing placement. I attest to the content of the Intraoperative Record and any orders documented therein. Any exceptions are noted below.
[2020-06-28] MEDS ORDERED: HYDROCODONE/ACETAMOPHEN 5/325MG TAB PO PRN (19:20)
[2020-06-28] MEDS ORDERED: MoRPHine SULFATE 4 MG/ML 1 ML CARP\\VIAL IV PRN (19:20)
[2020-06-28] MEDS ORDERED: MoRPHine SULFATE 2 MG/ML CARP IV PRN (19:20)
--- NOTE | 2020-06-28 19:20 | Anesthesiology Progress Note ---
Date of Service June 28, 2020 Anesthesia Post Procedure Vital Signs Vital Signs: Temp Pulse Pulse Pulse Resp BP BP 06/28/20 18:46 36.8 C 69 18 134/79 06/28/20 18:35 63 15 126/84 06/28/20 18:25 67 20 134/97 06/28/20 18:15 14 141/94 H 06/28/20 18:05 14 131/79 06/28/20 17:59 36.2 C L 14 123/86 06/28/20 13:53 62 18 120/75 06/28/20 08:54 36.8 C 63 18 98/61 L 06/27/20 22:52 36.7 C 69 16 106/69 06/27/20 21:42 36.9 C 69 18 125/76 06/27/20 20:56 71 16 121/78 06/27/20 19:49 72 16 119/82 Pulse Ox 06/28/20 18:46 100 06/28/20 18:35 98 06/28/20 18:25 98 06/28/20 18:15 99 06/28/20 18:05 99 06/28/20 17:59 99 06/28/20 13:53 98 06/28/20 08:54 91 06/27/20 22:52 98 06/27/20 21:42 100 06/27/20 20:56 98 06/27/20 19:49 99 Pain Intensity Abdomen: Pain Intensity: 5 Transfer of Care Handoff Completed per policy Notes Mental Status: alert / awake / arousable and participated in evaluation Patient Amnestic to Procedure: Yes Nausea / Vomiting: adequately controlled Pain: adequately controlled Airway Patency, RR, SpO2: stable & adequate BP & HR: stable & adequate Hydration State: stable & adequate Anesthetic Complications: no major complications apparent
[2020-06-28] MEDS: ONDANSETRON INJ 2 MG/ML 2 ML VIAL IV PRN (20:56)
[2020-06-28] MEDS: HYDROmorphone INJ 0.5 MG/0.5 ML SYR IV PRN (23:25)
[2020-06-29] MEDS: HYDROCODONE/ACETAMOPHEN 5/325MG TAB PO PRN ×3 (02:25→16:23)
[2020-06-29] MEDS: HYDROmorphone INJ 0.5 MG/0.5 ML SYR IV PRN ×4 (03:32→20:34)
[2020-06-29] MEDS: LACTATED RINGER'S 1,000 ML IV SCH ×2 (05:01→16:24)
[2020-06-29] MEDS: metroNIDAZOLE 500 MG/100 ML BAG IV SCH ×3 (05:21→20:35)
[2020-06-29] MEDS ORDERED: CLINDAMYCIN PHOS 900 MG/6 ML VIAL IV SCH (06:00)
[2020-06-29 07:47] LABS: Hematocrit (blood only) 32.1 % (37-47); Hemoglobin 10.9 g/dL (12.0-16.0); Mean Corpuscular Hemoglobin 32.7 pg (25-34); Mean Corpuscular Volume 96.4 fL (80-100); Mean Platelet Volume 9.9 fL (7.4-10.4); Platelet Count 157 K/uL (130-400); RDW Standard Deviation 45.6 fL (36.4-46.3); Red Blood Count 3.33 M/uL (4.2-5.4); White Blood Count 5.83 K/uL (4.8-10.8)
--- NOTE | 2020-06-29 08:07 | Hospitalist Progress Note ---
Date of Service June 29, 2020 Assessment & Plan (1) Abdominal pain: (2) Transaminitis: (3) Cholelithiasis: This is a 49-year-old female who has significant past medical history of gastric bypass in 2008, postoperative intestinal malabsorption, HTN, migraine, history of jejunal ulcer, left breast CA status post lumpectomy, chemo and radiation who presents to ED secondary to abdominal pain x2 hours prior to arrival. s/p ERCP c Stone Extraction and Lap Jessica. She is afebrile and WBC WNL. IV Cipro and Flagyl Patient was started on IV cefepime in ED -develop mild rash to right forearm, was given Benadryl and resolved IV Protonix once daily IV Dilaudid severe pain, IV APAP mild pain (4) HTN (hypertension), benign: continue losartan (5) Jejunal ulcer: EGD 03/04/20 on PPI (6) DVT prophylaxis: SCD/TEDS for now due to possible procedure reassess in a.m. need for chemical prophylaxis FULL CODE PCP: Dr. Ireland Dispo: med/surg labs Checked ADAT ROS-No Headache, No Visual Changes, No Nausea, No Vomiting, No Fever, No Chills, No Neck Pain or Stiffness, No Chest Pain, No Palpitations, No SOB, No [place], No Cough, No Sputum, No Wheezing, No Abdominal Pain, No Diarrhea, No Hematemesis, No Hemoptysis, No Unexpected Weight Loss, No Flank pain, No Melena, No Hematochezia, No Frequency, No Urgency, No Burning, No Hematuria, No Rashes, No Diaphoresis. Appetite is Normal Physical Exam Gen-AAO x 3, NAD, Afebrile Head-NCAT, EOMI, PERRLA, Anicteric Sclera, No Posterior Pharyngeal Erythema Neck-Supple, No JVD, No Thyromegaly, No Masses, No LAD, No Bruits Lungs-Clear to Auscultation Bilaterally, No Rales, No Rhonchi, No Wheezing, No Crepitus Chest-No S4, +S1, +S2, No S3, No Murmurs, No Rubs, No Gallops, No Ectopy Abdomen-Soft, Bowel Sounds Present, Tender, Non Distended, No Hepatomegaly, No Splenomegaly, No Palpable Masses, No Rebound, No Rigidity, No Guarding Musculoskeletal-Full Range of Motion Bilaterally, No CVAT Extremities-No Cyanosis, No Clubbing, No Edema Nuero-Cranial Nerves II-XII grossly intact, Motor WNL, DTRs WNL, Strength WNL, Non Focal Psych-Normal Mood Admission and Anticipated Discharge Date Admission Date: June 27, 2020 Results & Data Results & Data ([facility]) Vital Signs (Past 12 Hours) Vital Signs Temp Pulse Resp BP Pulse Ox 06/29/20 07:51 36.8 C 109 H 19 108/67 90 06/28/20 22:05 37.4 C 87 16 128/82 95 06/28/20 21:02 37.0 C 85 20 140/95 95 (1) Abdominal pain Abdominal location: unspecified location Qualified Code(s): R10.9 - Unspecified abdominal pain (2) Cholelithiasis Cholecystitis acuity: acute Cholelithiasis location: gallbladder
[2020-06-29 08:17] LABS: Albumin Globulin Ratio 0.9 (0.9-2); Albumin Level 2.7 gm/dl (3.4-5.0); BUN Creatinine Ratio 6.5 (10-20); Bilirubin Direct 0.3 mg/dl (0-0.2); Bilirubin,Total 0.8 mg/dl (0.2-1); Calcium 8.8 mg/dl (8.5-10.1); Creatinine Clr Calc Pharmacy 101.4 ml/min; Est GFR (African American) 116.7; Est GFR (Non-African American) 100.7; Globulin 2.9 gm/dl (2.5-4.0); Potassium 3.5 mmol/L (3.5-5.1); Total Protein 5.6 gm/dl (6.4-8.2)
[2020-06-29] MEDS: MULTIVITAMIN CHEWABLE TAB PO SCH (08:26)
[2020-06-29] MEDS: TAMOXIFEN CITRATE 10 MG TABLET PO SCH (08:26)
[2020-06-29] MEDS: LOSARTAN POTASSIUM 25 MG TAB PO SCH (08:26)
[2020-06-29] MEDS: CIPROFLOXACIN / D5W 400 MG/200 ML BAG IV SCH ×2 (09:48→23:13)
--- NOTE | 2020-06-29 10:58 | Surgery Progress Note ---
Date of Service S/P Laparoscopy Assisted ERCP, Laparoscopic Cholecystectomy POD 1, pt is stable, still have some RUQ pain, no nausea, no vomiting, no fever, RADHA 50ml, clear June 29, 2020 Assessment & Plan (1) Choledocholithiasis: F/U S/P Laparoscopy Assisted ERCP, Laparoscopic Cholecystectomy, POD 1 stable, AST 589, ALT 797 continue clear diet, repeat labs in morning, OOB, SCD will F/U Present on Admission?: Yes Admission and Anticipated Discharge Date Admission Date: June 27, 2020 Supervising Physician Co-Signing Physician Notes I performed a history and physical examination of the patient today, including specifically on physical exam - soft abdomen. I have discussed the patient's m anagement with the advanced practitioner. Please refer to the nurse practitioner's note for the documented findings and plan of care. Lap assisted ERCP. I explained risk, benefit and alternatives, also need to leave a PEG tube in the evnt a stent is needed. Subjective Patient feeling better today. The abdominal pain she came up with is improved. Physical Exam Constitutional: WD/WN, vitals as above well developed and well nourished Eyes: PERRL, conjunctivae normal, anicteric sclerae Neck: trachea midline, no thyromegaly Respiratory: normal respiratory effort, lungs clear to auscultation normal respiratory effort Cardiovascular: RRR, no murmur, no edema Rate/Rhythm: regular rate and regular rhythm Gastrointestinal (Abdomen): Percussion/Palpation: abdomen soft mild tenderness at RUQ, no rebound pain, no distend, BS + Musculoskeletal: no cyanosis or clubbing, extremities motor strength 5/5 Skin: no rashes, warm and dry Neurologic: awake Psychiatric: Orientation: alert and oriented x 3 Results & Data ([facility] [place]) Vital Signs (Past 12 Hours) Vital Signs Temp Pulse Pulse Resp BP Pulse Ox 06/29/20 09:55 93 06/29/20 09:54 88 86 L 06/29/20 07:51 36.8 C 109 H 19 108/67 90 Laboratory Results Abnormal lab results 06/29/20 06/29/20 Range/Units 07:33 07:33 RBC 3.33 L (4.2-5.4) M/uL Hgb 10.9 L (12.0-16.0) g/dL Hct 32.1 L (37-47) % BUN 5 L D (7-18) mg/dl BUN/Creatinine Ratio 6.5 L (10-20) Direct Bilirubin 0.3 H (0-0.2) mg/dl AST 589 H (15-37) U/L ALT 797 H (12-78) U/L Alkaline Phosphatase 146 H (45-117) U/L Total Protein 5.6 L (6.4-8.2) gm/dl Albumin 2.7 L (3.4-5.0) gm/dl
[2020-06-29] MEDS: PANTOprazole 40 MG in SYRINGE 0 ML IV SCH (11:58)
[2020-06-29] MEDS ORDERED: SIMETHICONE 80 MG CHEW PO PRN (20:03)
[2020-06-29] MEDS: ONDANSETRON INJ 2 MG/ML 2 ML VIAL IV PRN (20:44)
[2020-06-29] MEDS ORDERED: ACETAMINOPHEN 325 MG TAB PO PRN (22:47)
[2020-06-30] MEDS: HYDROCODONE/ACETAMOPHEN 5/325MG TAB PO PRN ×2 (04:47→21:42)
[2020-06-30] MEDS: metroNIDAZOLE 500 MG/100 ML BAG IV SCH ×3 (04:49→21:20)
[2020-06-30] MEDS: TAMOXIFEN CITRATE 10 MG TABLET PO SCH (08:12)
[2020-06-30] MEDS: LOSARTAN POTASSIUM 25 MG TAB PO SCH (08:12)
[2020-06-30] MEDS: MULTIVITAMIN CHEWABLE TAB PO SCH (08:13)
[2020-06-30 08:16] LABS: Basophils # (auto) 0.01 K/uL (0-0.2); Basophils % (auto) 0.2 %; Eosinophils # (auto) 0.07 K/uL (0-0.5); Eosinophils % (auto) 1.1 %; Hematocrit (blood only) 31.1 % (37-47); Hemoglobin 10.4 g/dL (12.0-16.0); Immature Granulocytes # (auto) 0.01 K/uL (0.00-0.02); Immature Granulocytes % (auto) 0.2 %; Mean Corpuscular Hemoglobin 32.8 pg (25-34); Mean Corpuscular Hgb Conc 33.4 g/dL (32-36); Mean Corpuscular Volume 98.1 fL (80-100); Mean Platelet Volume 9.9 fL (7.4-10.4); Monocytes # (auto) 0.64 K/uL (0.11-0.59); Monocytes % (auto) 10.1 %; Neutrophils # (auto) 4.93 K/uL (1.4-6.5); Neutrophils % (auto) 77.4 %; Platelet Count 150 K/uL (130-400); RDW Coefficient of Variation 13.2 % (11.5-14.5); RDW Standard Deviation 47.4 fL (36.4-46.3); Red Blood Count 3.17 M/uL (4.2-5.4); White Blood Count 6.36 K/uL (4.8-10.8)
[2020-06-30] MEDS: LACTATED RINGER'S 1,000 ML IV SCH ×2 (08:17→21:41)
[2020-06-30] MEDS: HYDROmorphone INJ 0.5 MG/0.5 ML SYR IV PRN ×2 (08:17→19:39)
[2020-06-30 08:43] LABS: Albumin Level 2.6 gm/dl (3.4-5.0); BUN Creatinine Ratio 4.5 (10-20); Calcium 8.7 mg/dl (8.5-10.1); Creatinine Clr Calc Pharmacy 110.7 ml/min; Est GFR (African American) 121.7; Potassium 3.4 mmol/L (3.5-5.1)
[2020-06-30 08:46] LABS: Albumin Globulin Ratio 0.9 (0.9-2); Bilirubin,Total 0.5 mg/dl (0.2-1); Total Protein 5.6 gm/dl (6.4-8.2)
--- NOTE | 2020-06-30 08:46 | Hospitalist Progress Note ---
Date of Service June 30, 2020 Assessment & Plan (1) Abdominal pain: (2) Transaminitis: (3) Cholelithiasis: This is a 49-year-old female who has significant past medical history of gastric bypass in 2008, postoperative intestinal malabsorption, HTN, migraine, history of jejunal ulcer, left breast CA status post lumpectomy, chemo and radiation who presents to ED secondary to abdominal pain x2 hours prior to arrival. s/p ERCP c Stone Extraction and Lap Jessica 06/28/20. She is afebrile and WBC WNL. IV Cipro and Flagyl Patient was started on IV cefepime in ED -develop mild rash to right forearm, was given Benadryl and resolved IV Protonix once daily IV Dilaudid severe pain, IV APAP mild pain (4) HTN (hypertension), benign: Continue Losartan (5) Jejunal ulcer: EGD 03/04/20 on PPI (6) DVT prophylaxis: SCD/TEDS/SQ Heparin FULL CODE PCP: Dr. Ireland Dispo: med/surg labs Checked ADAT per GS ROS-No Headache, No Visual Changes, No Nausea, No Vomiting, No Fever, No Chills, No Neck Pain or Stiffness, No Chest Pain, No Palpitations, No SOB, No [place], No Cough, No Sputum, No Wheezing, No Abdominal Pain, No Diarrhea, No Hematemesis, No Hemoptysis, No Unexpected Weight Loss, No Flank pain, No Melena, No Hematochezia, No Frequency, No Urgency, No Burning, No Hematuria, No Rashes, No Diaphoresis. Appetite is Normal Physical Exam Gen-AAO x 3, NAD, Afebrile Head-NCAT, EOMI, PERRLA, Anicteric Sclera, No Posterior Pharyngeal Erythema Neck-Supple, No JVD, No Thyromegaly, No Masses, No LAD, No Bruits Lungs-Clear to Auscultation Bilaterally, No Rales, No Rhonchi, No Wheezing, No Crepitus Chest-No S4, +S1, +S2, No S3, No Murmurs, No Rubs, No Gallops, No Ectopy Abdomen-Soft, Bowel Sounds Present, Tender, Non Distended, No Hepatomegaly, No Splenomegaly, No Palpable Masses, No Rebound, No Rigidity, No Guarding Musculoskeletal-Full Range of Motion Bilaterally, No CVAT Extremities-No Cyanosis, No Clubbing, No Edema Nuero-Cranial Nerves II-XII grossly intact, Motor WNL, DTRs WNL, Strength WNL, Non Focal Psych-Normal Mood Admission and Anticipated Discharge Date Admission Date: June 27, 2020 Results & Data Results & Data ([facility]) Vital Signs (Past 12 Hours) Vital Signs Temp Pulse Resp BP Pulse Ox 06/30/20 07:43 37.0 C 74 18 121/74 97 06/30/20 01:15 37.5 C 06/29/20 22:23 37.8 C H 95 H 18 122/76 90 (1) Abdominal pain Abdominal location: unspecified location Qualified Code(s): R10.9 - Unspecified abdominal pain (2) Cholelithiasis Cholecystitis acuity: acute Cholelithiasis location: gallbladder
[2020-06-30] MEDS: CIPROFLOXACIN / D5W 400 MG/200 ML BAG IV SCH ×2 (09:48→23:00)
[2020-06-30] MEDS: HEPARIN SOD 5,000 UNIT/0.5 ML VIAL SQ SCH ×2 (09:49→21:19)
--- NOTE | 2020-06-30 10:48 | Surgery Progress Note ---
Date of Service S/P Laparoscopy Assisted ERCP, Laparoscopic Cholecystectomy POD 2, pt is stable, still have some RUQ pain, no nausea, no vomiting, no fever, RADHA 40ml, clear June 30, 2020 Assessment & Plan (1) Choledocholithiasis: F/U S/P Laparoscopy Assisted ERCP, Laparoscopic Cholecystectomy, POD 1 stable, AST 589, ALT 797 continue clear diet, repeat labs in morning, OOB, SCD will F/U F/U S/P Laparoscopy Assisted ERCP, Laparoscopic Cholecystectomy, POD 2 tolerated diet, AST, ALT better, continue control pain, repeat labs in morning, possible discharge home tomorrow, Admission and Anticipated Discharge Date Admission Date: June 27, 2020 Supervising Physician Co-Signing Physician Notes I performed a history and physical examination of the patient today, including specifically on physical exam - soft abdomen. I have discussed the patient's management with the advanced practitioner. Please refer to the nurse practitioner's note for the documented findings and plan of care. Lap assisted ERCP. I explained risk, benefit and alternatives, also need to leave a PEG tube in the evnt a stent is needed. Subjective Patient feeling better today. The abdominal pain she came up with is improved. Physical Exam Constitutional: WD/WN, vitals as above well developed and well nourished Eyes: PERRL, conjunctivae normal, anicteric sclerae Neck: trachea midline, no thyromegaly Respiratory: normal respiratory effort, lungs clear to auscultation normal respiratory effort Cardiovascular: RRR, no murmur, no edema Rate/Rhythm: regular rate and regular rhythm Gastrointestinal (Abdomen): Percussion/Palpation: + abdomen tender and abdomen soft tenderness at epigastric area, no rebound pain, no distend, all incisions intact, no redness, Musculoskeletal: no cyanosis or clubbing, extremities motor strength 5/5 Skin: no rashes, warm and dry Neurologic: awake Psychiatric: Orientation: alert and oriented x 3 Results & Data ([facility]) Vital Signs (Past 12 Hours) Vital Signs Temp Pulse Resp BP Pulse Ox 06/30/20 07:43 37.0 C 74 18 121/74 97 06/30/20 01:15 37.5 C
[2020-06-30] MEDS: PANTOprazole 40 MG in SYRINGE 0 ML IV SCH (11:35)
[2020-06-30] MEDS: ONDANSETRON INJ 2 MG/ML 2 ML VIAL IV PRN (11:35)
[2020-06-30] MEDS ORDERED: PROMETHAZINE HCL 12.5 MG in SODIUM CHLORIDE 0.9% 50 ML IV PRN (12:58)
[2020-06-30] MEDS ORDERED: OPTIRAY 320 125ml IV ONE (14:44)
[2020-06-30] MEDS: MoRPHine SULFATE 2 MG/ML CARP IV PRN (14:57)
--- NOTE | 2020-06-30 15:04 | CT Scan Report ---
CT angio chest PE protocol CT DOSE: 472.71 mGy.cm HISTORY: 49 years-old Female with PE/CP. Acute chest pain status post cholecystectomy. History of b reast cancer. TECHNIQUE: Multiple CTA images of the chest were obtained after the intravenous administration of 120 ml Optiray 320. Coronal and sagittal MIPS were obtained from the axial data set and were submitted for review. All measurements were obtained according to NASCET criteria. A dose lowering technique w as utilized adhering to the principles of ALARA. COMPARISON: CT abdomen pelvis 06/27/2020, PET CT 09/28/2018. FINDINGS: CTA: The heart is normal in size. No pericardial effusion. No thoracic aortic aneurysm or dissection. Gil ncy of the imaged great vessels. Pulmonary artery is opacified to level the subsegmental branches and demonstrates no filling defects to suggest thromboembolic disease. CT CHEST: Unremarkable thyroid. No adenopathy. Opacified venous collaterals of the right chest wall with high-g rade stenosis of the right subclavian vein on image 28 series 4. Trace pleural effusions. Mild depend ent bibasilar consolidation. No overt pulmonary edema. Trace amount of air within the left pleural sp alton noted at the apex on image 182 series 4 also within the left lung base for example as seen on eleanor ge 62 series 4 and also the diaphragmatic hiatus. Trace pneumomediastinum is also noted. Small hiatal hernia. Postoperative changes of the stomach are partially imaged. Partially imaged pneu momediastinum of the upper abdomen. Subcutaneous and deep tissue air about the right chest wall and l ateral right abdominal wall. Asymmetric skin thickening of the left breast with postoperative changes . There is a new subcutaneous hypodense 1.7 x 0.9 cm lesion of the upper left breast. No acute fractu re or suspicious bone lesion. Surgical drainage catheter is noted adjacent to the liver. IMPRESSION: 1. No evidence of pulmonary embolus. 2. Trace pleural effusions with bibasilar consolidation suggestive of atelectasis. 3. Surgical drainage catheter of the right upper quadrant abdomen with subcutaneous and deep tissue a ir of the right chest and abdominal wall. Pneumoperitoneum which is likely on a postsurgical basis tr acks into the chest with small amount of pneumomediastinum and tiny left hydropneumothorax. 4. Prior Juan Miguel-en-Y gastric bypass. 5. Postoperative changes of the left breast with possible seroma of the superior left breast measurin g up to 1.7 cm. ACT 112: Negative or not required by law. The above report was generated using voice recognition software. It may contain grammatical, syntax o r spelling errors. Electronically signed by: Esteban Gaston M.D. 06/30/2020 3:03 PM
[2020-06-30] MEDS: FAMOTIDINE 20 MG in SYRINGE 3 ML IV SCH (19:40)
[2020-06-30] MEDS ORDERED: DOCUSATE SODIUM/SENNA 50/8.6MG TAB PO PRN (21:06)
[2020-06-30 22:48] VITALS: PULSE 83
[2020-07-01] MEDS: ONDANSETRON INJ 2 MG/ML 2 ML VIAL IV PRN (01:20)
[2020-07-01] MEDS: HYDROmorphone INJ 0.5 MG/0.5 ML SYR IV PRN (01:54)
[2020-07-01 02:07] LABS: Hemoglobin 10.7 g/dL (12.0-16.0); Mean Corpuscular Hemoglobin 32.7 pg (25-34); Mean Corpuscular Hgb Conc 33.4 g/dL (32-36); Mean Corpuscular Volume 97.9 fL (80-100); Mean Platelet Volume 10.5 fL (7.4-10.4); Platelet Count 150 K/uL (130-400); RDW Coefficient of Variation 12.9 % (11.5-14.5); RDW Standard Deviation 46.5 fL (36.4-46.3); Red Blood Count 3.27 M/uL (4.2-5.4); White Blood Count 6.56 K/uL (4.8-10.8)
[2020-07-01 02:36] LABS: Alanine Aminotransferase 370 U/L (12-78); Albumin Globulin Ratio 0.8 (0.9-2); Albumin Level 2.7 gm/dl (3.4-5.0); Alkaline Phosphatase 106 U/L (45-117); BUN Creatinine Ratio 4.8 (10-20); Bilirubin,Total 0.6 mg/dl (0.2-1); Blood Urea Nitrogen 3 mg/dl (7-18); Calcium 8.4 mg/dl (8.5-10.1); Carbon Dioxide 31 mmol/L (21-32); Chloride 103 mmol/L (98-107); Creatinine Clr Calc Pharmacy 114.3 ml/min; Est GFR (African American) 122.9; Est GFR (Non-African American) 106.1; Globulin 3.4 gm/dl (2.5-4.0); Glucose 93 mg/dl (70-99); Sodium 139 mmol/L (136-145); Total Protein 6.1 gm/dl (6.4-8.2); Troponin I < 0.015 ng/ml (0-0.045)
[2020-07-01] MEDS: MoRPHine SULFATE 2 MG/ML CARP IV PRN (04:52)
[2020-07-01] MEDS: metroNIDAZOLE 500 MG/100 ML BAG IV SCH ×2 (04:53→13:13)
[2020-07-01 06:42] LABS: Potassium 3.5 mmol/L (3.5-5.1)
[2020-07-01 07:47] VITALS: BP 102/66; TEMP 98.2; O2SAT 96
--- NOTE | 2020-07-01 08:02 | Anesthesiology Progress Note ---
Date of Service July 01, 2020 Anesthesia Post Procedure Vital Signs Vital Signs: Temp Pulse Resp BP Pulse Ox 07/01/20 07:46 36.8 C 83 19 102/66 96 06/30/20 22:14 37.3 C 83 18 106/67 97 06/30/20 15:40 37.1 C 81 19 137/80 99 06/30/20 13:57 37.9 C H 93 H 20 125/79 90 06/30/20 13:30 37.4 C 91 Notes Mental Status: alert / awake / arousable and participated in evaluation Patient Amnestic to Procedure: Yes Nausea / Vomiting: adequately controlled Pain: adequately controlled Airway Patency, RR, SpO2: stable & adequate BP & HR: stable & adequate Hydration State: stable & adequate Anesthetic Complications: no major complications apparent and Pt Satisfied with anesthetic care
--- NOTE | 2020-07-01 08:35 | Electrocardiogram Report ---
Test Reason : Blood Pressure : / mmHG Vent. Rate : 085 BPM Atrial Rate : 085 BPM P-R Int : 144 ms QRS Dur : 090 ms QT Int : 388 ms P-R-T Axes : -05 009 012 degrees QTc Int : 461 ms Normal sinus rhythm Diffuse Nonspecific T wave abnormality Prolonged QT Abnormal ECG When compared with ECG of 16-NOV-2018 07:06, No significant change was found Confirmed by Scott Warner ([id number]) on 07/01/2020 8:35:06 AM Referred By: REFERRED SELF Confirmed By:Scott Warner
[2020-07-01] MEDS: TAMOXIFEN CITRATE 10 MG TABLET PO SCH (08:57)
[2020-07-01] MEDS: MULTIVITAMIN CHEWABLE TAB PO SCH (08:57)
[2020-07-01] MEDS: FAMOTIDINE 20 MG in SYRINGE 3 ML IV SCH (08:57)
[2020-07-01] MEDS: LOSARTAN POTASSIUM 25 MG TAB PO SCH (08:57)
--- NOTE | 2020-07-01 09:02 | XRay Report ---
XR chest 2V PA/lateral CLINICAL HISTORY: Follow-up pneumonia. COMPARISON STUDY: Chest CT June 30, 2020. FINDINGS: Note is again made of multiple locules of gas within the chest and abdominal jorge. There i s no pneumothorax. A trace left pleural effusion is noted. Mild bibasilar opacities are present. Card iac size is normal. No evidence for pulmonary edema. There is no pneumothorax. There is mild gaseous distention of the splenic flexure of the colon. IMPRESSION: 1. Trace left pleural effusion. Mild bibasilar opacities which favor atelectasis although an infectio us process could appear similar. 2. Multiple locules of gas within the chest and abdominal wall, as shown on prior CT. ACT 112: Negative or not required by law. Electronically signed by: Parag Hinton M.D. 07/01/2020 9:01 AM
--- NOTE | 2020-07-01 09:42 | Hospitalist Progress Note ---
Date of Service July 01, 2020 Assessment & Plan (1) Abdominal pain: (2) Transaminitis: (3) Cholelithiasis: This is a 49-year-old female who has significant past medical history of gastric bypass in 2008, postoperative intestinal malabsorption, HTN, migraine, history of jejunal ulcer, left breast CA status post lumpectomy, chemo and radiation who presents to ED secondary to abdominal pain x2 hours prior to arrival. s/p ERCP c Stone Extraction and Lap Jessica 06/28/20. She is afebrile and WBC WNL. IV Cipro and Flagyl Patient was started on IV cefepime in ED -develop mild rash to right forearm, was given Benadryl and resolved IV Protonix once daily IV Dilaudid severe pain, IV APAP mild pain (4) HTN (hypertension), benign: Continue Losartan (5) Jejunal ulcer: EGD 03/04/20 on PPI (6) DVT prophylaxis: SCD/TEDS/SQ Heparin Chest pain yesterday, CT chest reviewed, Await Surgery input today, trops were all negative, EKG unchanged FULL CODE PCP: Dr. Ireland Dispo: med/surg labs Checked ADAT per GS ROS-No Headache, No Visual Changes, No Nausea, No Vomiting, No Fever, No Chills, No Neck Pain or Stiffness, No Chest Pain, No Palpitations, No SOB, No [place], No Cough, No Sputum, No Wheezing, No Abdominal Pain, No Diarrhea, No Hematemesis, No Hemoptysis, No Unexpected Weight Loss, No Flank pain, No Melena, No Hematochezia, No Frequency, No Urgency, No Burning, No Hematuria, No Rashes, No Diaphoresis. Appetite is Normal Physical Exam Gen-AAO x 3, NAD, Afebrile Head-NCAT, EOMI, PERRLA, Anicteric Sclera, No Posterior Pharyngeal Erythema Neck-Supple, No JVD, No Thyromegaly, No Masses, No LAD, No Bruits Lungs-Clear to Auscultation Bilaterally, No Rales, No Rhonchi, No Wheezing, No Crepitus Chest-No S4, +S1, +S2, No S3, No Murmurs, No Rubs, No Gallops, No Ectopy Abdomen-Soft, Bowel Sounds Present, Tender, Non Distended, No Hepatomegaly, No Splenomegaly, No Palpable Masses, No Rebound, No Rigidity, No Guarding Musculoskeletal-Full Range of Motion Bilaterally, No CVAT Extremities-No Cyanosis, No Clubbing, No Edema Nuero-Cranial Nerves II-XII grossly intact, Motor WNL, DTRs WNL, Strength WNL, Non Focal Psych-Normal Mood Admission and Anticipated Discharge Date Admission Date: June 27, 2020 Results & Data Results & Data ([facility]) Vital Signs (Past 12 Hours) Vital Signs Temp Pulse Resp BP Pulse Ox 07/01/20 07:46 36.8 C 83 19 102/66 96 06/30/20 22:14 37.3 C 83 18 106/67 97 (1) Abdominal pain Abdominal location: unspecified location Qualified Code(s): R10.9 - Unspecified abdominal pain (2) Cholelithiasis Cholecystitis acuity: acute Cholelithiasis location: gallbladder
[2020-07-01] MEDS: LACTATED RINGER'S 1,000 ML IV SCH (10:15)
--- NOTE | 2020-07-01 11:29 | Gastroenterology Progress Note ---
Date of Service July 01, 2020 Assessment & Plan (1) Choledocholithiasis: Pt is a 49 y/o female s/p ERCP & lap carlos enrique for choledocholithiasis. She is having less abd pain, no n/v. No flatus yet but BS present. LFTs decreasing - Continue antibx coverage - Diet advancement per Surgery - Avoid NSAIDs or high dose ASA 5 days after sphincterectomy - Pls recall GI prn Admission and Anticipated Discharge Date Admission Date: June 27, 2020 Supervising Physician Co-Signing Physician Notes Attending attestation I have seen, examined this patient, and agree with the findings and above by our mid-level provider JUSTIN Castaneda, with the following additions: Patient resting comfortably Doing well after ERCP combo with General surgery, has pneumomediastinum, possible from prolonged lap procedure, no acute abd or respiratory difficulties Diet advancement and dispo per General surgery Subjective Pt reports abd pain, nausea is better. Had episode of pressure chest pain last night. Troponin normal. ECG: Prolonged QT, non specific T wave abnormality. CTA chest: 1. No evidence of pulmonary embolus. 2. Trace pleural effusions with bibasilar consolidation suggestive of atelectasis. 3. Surgical drainage catheter of the right upper quadrant abdomen with sub cutaneous and deep tissue air of the right chest and abdominal wall. Pneumoperitoneum which is likely on a postsurgical basis tracks into the chest with small amount of pneumomediastinum and tiny left hydropneumothorax. 4. Prior Juan Miguel-en-Y gastric bypass. 5. Postoperative changes of the left breast with possible seroma of the superior left breast measuring up to 1.7 cm. Review of Systems Review of Systems: All systems reviewed & are unremarkable except as noted in HPI & below Physical Exam Constitutional: WD/WN, vitals as above well groomed, cooperative and comfortable Eyes: PERRL, conjunctivae normal, anicteric sclerae ENMT: external ear and nose normal, oropharynx normal Respiratory: normal respiratory effort, lungs clear to auscultation Cardiovascular: RRR, no murmur, no edema Gastrointestinal (Abdomen): BS present, soft, generalized tenderness, RUQ RADHA drain empty Skin: no rashes, warm and dry no jaundice Psychiatric: A+Ox3, euthymic affect Lymphatic: no lymphedema Results & Data ([facility]) Vital Signs (Past 12 Hours) Vital Signs Temp Pulse Resp BP Pulse Ox 07/01/20 07:46 36.8 C 83 19 102/66 96
[2020-07-01] MEDS: CIPROFLOXACIN / D5W 400 MG/200 ML BAG IV SCH (11:45)
[2020-07-01] MEDS: PANTOprazole 40 MG in SYRINGE 0 ML IV SCH (11:45)
[2020-07-01] MEDS: HEPARIN SOD 5,000 UNIT/0.5 ML VIAL SQ SCH (11:45)
--- NOTE | 2020-07-01 12:47 | Surgery Progress Note ---
Date of Service July 01, 2020 Assessment & Plan (1) Choledocholithiasis: POD#3 laparoscopic assisted ERCP and laparoscopic cholecystectomy Patient states she is feeling better today WBC 6.5, LFT's downtrending, VSS RADHA drain with serosang. output; will remove today Advance to a regular diet From our standpoint patient is doing well and can be discharged to home when okay with medicine Instructions given for patient to follow up in clinic within 7-10 days Pt seen and examined with Dr. Turpin as above. doing well. will d/c RADHA today. Ok with me for d/c when ok with primary service. Admission and Anticipated Discharge Date Admission Date: June 27, 2020 Subjective Patient states she is feeling fairly well. Her abdominal pain is improving. She has been tolerating a liquid diet. Physical Exam Physical Exam: awake/alert Respiratory: normal respiratory effort Gastrointestinal (Abdomen): Inspection/Auscultation: + abdominal surgical incision (c/d/i with dermabond overtop; no signs of infection) and + abdominal surgical drain present (serosangeneous output) Percussion/Palpation: abdomen soft Results & Data ([facility]) Vital Signs (Past 12 Hours) Vital Signs Temp Pulse Resp BP Pulse Ox 07/01/20 07:46 36.8 C 83 19 102/66 96 PG Care Time/CCT Total # of Minutes Spent Total Time Spent with Patient: Total time spent is greater than 50% in coordina tion of care (as documented) at patient's floor/unit and/or counseling patient: Coding Level of Care Code None Diagnoses Choledocholithiasis K80.50
--- NOTE | 2020-07-01 15:32 | Discharge Summary ---
Date of Service July 01, 2020 Admission HPI Per Admitting Provider This is a 49-year-old female who has significant past medical history of gastric bypass in 2008, postoperative intestinal malabsorption, HTN, migraine, history of jejunal ulcer, left breast CA status post lumpectomy, chemo and radiation who presents to ED secondary to abdominal pain x2 hours prior to arrival. Pain was located in epigastrium and radiated to mid substernal region and to umbilicus. Pain came on abruptly, was constant, made better with lying flat, nothing improves symptoms and associated with nausea. She did not vomit and denies any known fever. She did have episode of briana colored stool this morning. Her last meal was approximately 2 hours prior to pain onset and was a half a sandwich. She denies having similar symptoms in past. History of jejunal ulcer, but symptoms different. She did feel chilled but denies sweats, lightheadedness, dizziness, syncope, chest pain, shortness of breath, cough, palpitations, diarrhea, dysuria, increased urgency or frequency with urination, hematuria. Her appetite is otherwise been normal. She does elicit early satiety and occasional epigastric pain upon eating. In ED she remained hemodynamically stable. Lab work notable for transaminitis with elevated AST 434, ALT 208, alk phosphatase 130, total bili 1.1. CT scan abdomen pelvis Concerning for mildly distended gallbladder with probable cholelithiasis. She did receive IV fluid and IV morphine for pain control. She also received IV cefepime, but developed rash to right upper extremity upon administration. Benadryl was given and rash improved. Admission Exam Per Admitting Provider Constitutional: WD/WN, vitals as above, NAD, sitting up in bed, pleasant, conversing easily Head: Normocephalic, Atraumatic Eyes: PERRL, conjunctivae normal, anicteric sclerae ENMT: external ear and nose normal, oropharynx normal Neck: trachea midline, no thyromegaly normal visual inspection Respiratory: normal respiratory effort, lungs clear to auscultation, no wheeze, rales, rhonchi. Normal insp/exp effort, no accessory muscle use Cardiovascular: RRR, no murmur, no edema Vessels: no JVD or carotid bruit Chest: normal inspection of chest Abdomen: normal bowel sounds, soft, nontender, no hepatosplenomegaly Musculoskeletal: no cyanosis or clubbing, extremities motor strength 5/5 Skin: macular erythematous rash to volar aspect of R forearm, proximal to IV site, warm and dry normal turgor Neurologic: PERRL, EOMI, accommodation nl, no face palsy, no dysarthria CN's II-XI intact bilaterally and moves all extremities Psychiatric: A+Ox3, euthymic affect Lymphatic: no cervical or axillary lymphadenopathy : deferred Principal Diagnosis (1) Abdominal pain: (2) Transaminitis: (3) Cholelithiasis: (4) HTN (hypertension), benign: (5) Jejunal ulcer: Discharge Exam See below Discharge Data Allergies Allergy/AdvReac Type Severity Reaction Status Date / Time cashew nut Allergy Severe Anaphylaxis Verified 06/27/20 19:10 pine nut Allergy Severe Anaphylaxis Verified 06/27/20 19:10 pistachio nut Allergy Severe Anaphylaxis Verified 06/27/20 19:10 walnut Allergy Severe Anaphylaxis Verified 06/27/20 19:10 NELSON Inhibitors Allergy Unknown Cough Verified 06/27/20 19:10 latex Allergy Unknown Redness of Verified 06/27/20 19:10 Skin Penicillins Allergy Unknown Unknown Verified 06/27/20 19:10 cefepime Allergy Rash Verified 06/27/20 19:57 Consultations 06/27/20 19:19 ED Decision to Admit Stat 06/27/20 19:33 Consult Gastroenterology Routine Consult General Surgery Routine Procedures Performed Operation Date: 06/28/20 11:35 Actual Procedures p Laparoscopy Assisted ERCP, Laparoscopic Cholecystectomy(Not Applicable) - Souleymane Turpni, s ERCP(Not Applicable) - Boubacar Arora MD Ordered Studies 06/27/20 17:05 CT abd pelvis oral con only Stat 06/27/20 20:04 US abdomen limited Urgent 06/28/20 14:00 FL ERCP biliary ductal Routine 06/30/20 14:31 CT angio chest PE protocol Stat Current Diagnoses Essential (primary) hypertension (06/27/20) Gastrojejunal ulcer, unspecified as acute or chronic, without hemorrhage or perforation (06/27/20) Calculus of gallbladder without cholecystitis without obstruction (06/27/20) Calculus of bile duct without cholangitis or cholecystitis without obstruction (06/27/20) Unspecified abdominal pain (06/27/20) Elevation of levels of liver transaminase levels (06/27/20) Encounter for other preprocedural examination (06/27/20) Encounter for prophylactic measures, unspecified (06/27/20) Allergies cashew nut Allergy (Severe, Verified 06/27/20 19:10) Anaphylaxis pine nut Allergy (Severe, Verified 06/27/20 19:10) Anaphylaxis pistachio nut Allergy (Severe, Verified 06/27/20 19:10) Anaphylaxis walnut Allergy (Severe, Verified 06/27/20 19:10) Anaphylaxis NELSON Inhibitors Allergy (Unknown, Verified 06/27/20 19:10) Cough latex Allergy (Unknown, Verified 06/27/20 19:10) Redness of Skin Penicillins Allergy (Unknown, Verified 06/27/20 19:10) Unknown cefepime Allergy (Verified 06/27/20 19:57) Rash Height/Weight/Isolation Height 5 ft 3 in Weight 87.1 kg Chemistry 06/30/20 07/01/20 07/01/20 08:01 01:44 05:40 Sodium 142 139 Potassium 3.4 L 3.5 Chloride 105 103 Carbon Dioxide 31 31 Anion Gap 6.0 5.0 BUN 3 L 3 L Creatinine 0.65 0.63 Glucose 89 93 Hospital Course (1) Abdominal pain: (2) Transaminitis: (3) Cholelithiasis: This is a 49-year-old female who has significant past medical history of gastric bypass in 2008, postoperative intestinal malabsorption, HTN, migraine, history of jejunal ulcer, left breast CA status post lumpectomy, chemo and radiation who presents to ED secondary to abdominal pain x2 hours prior to arrival. s/p ERCP c Stone Extraction and Lap Jessica 06/28/20. She is afebrile and WBC WNL. DC on PO Cipro and Flagyl x 5 days Patient was started on IV cefepime in ED -develop mild rash to right forearm, was given Benadryl and resolved BID Protonix on DC Oxycodone on DC (4) HTN (hypertension), benign: Continue Losartan (5) Jejunal ulcer: EGD 03/04/20 on PPI (6) DVT prophylaxis: SCD/TEDS/SQ Heparin Chest pain yesterday, CT chest reviewed, Surgery said OK for DC, trops were all negative, EKG unchanged FULL CODE PCP: Dr. Beka Sorenson: Home today labs Checked ROS-No Headache, No Visual Changes, No Nausea, No Vomiting, No Fever, No Chills, No Neck Pain or Stiffness, No Chest Pain, No Palpitations, No SOB, No [place], No Cough, No Sputum, No Wheezing, No Abdominal Pain, No Diarrhea, No Hematemesis, No Hemoptysis, No Unexpected Weight Loss, No Flank pain, No Melena, No Hematochezia, No Frequency, No Urgency, No Burning, No Hematuria, No Rashes, No Diaphoresis. Appetite is Normal Physical Exam Gen-AAO x 3, NAD, Afebrile Head-NCAT, EOMI, PERRLA, Anicteric Sclera, No Posterior Pharyngeal Erythema Neck-Supple, No JVD, No Thyromegaly, No Masses, No LAD, No Bruits Lungs-Clear to Auscultation Bilaterally, No Rales, No Rhonchi, No Wheezing, No Crepitus Chest-No S4, +S1, +S2, No S3, No Murmurs, No Rubs, No Gallops, No Ectopy Abdomen-Soft, Bowel Sounds Present, Tender, Non Distended, No Hepatomegaly, No Splenomegaly, No Palpable Masses, No Rebound, No Rigidity, No Guarding Musculoskeletal-Full Range of Motion Bilaterally, No CVAT Extremities-No Cyanosis, No Clubbing, No Edema Nuero-Cranial Nerves II-XII grossly intact, Motor WNL, DTRs WNL, Strength WNL, Non Focal Psych-Normal Mood Total Time Total Time Spent Total Time Spent (In Minutes): 45 min Total Time Includes: Examination of the Patient, Discharge Planning, Medication Reconciliation and Communication With Other Providers Discharge Plan Discharge Items Patient Disposition: Home - Self-Care Reason For Visit: CHOLEDOCHOLITHIASIS Discharge Diagnosis: (1) Abdominal pain: (2) Transaminitis: (3) Cholelithiasis: (4) HTN (hypertension), benign: (5) Jejunal ulcer: Condition on Discharge: Good Activity: Per Instructions section Lifting: No more than 10 pounds Bathing Comment: may shower; no soaking in tubs/pools Exercise/Sports: Wait until after follow-up appointment Driving/Machine Use: do not resume driving while taking narcotics for pain Non-emergency contact: Primary Care Provider and Surgeon Call non-emergency contact if: you have any medication questions, your symptoms worsen, your pain is not controlled, your pain is worsening, you have a fever, your temperature is above 101.5, your wound has increased redness, your wound has increased drainage and your wound pain has increased Follow-up/Referrals: Souleymane Turpin DO [Surgeon] - (Please call to schedule follow up in clinic within 7-10 days) Salome Holliday MD [Primary Care Provider] - Diet: Regular Addtl Attending Provider Instructions: None Pending Studies at Discharge: Yes Studies:: surgical pathology Stand-Alone Forms: My [facility] my[employer], Smoking Cessation Medications and DC Order Prescriptions: New hydrocodone-acetaminophen 5-325 mg tablet 1 - 2 tab PO .q4h- q6h PRN (Reason: pain, for initial therapy, max 6 tabs per day ) Qty: 15 RF: 0 sennosides-docusate sodium [Senokot-S] 8.6-50 mg Tablet 2 tab PO HS Qty: 60 RF: 0 ciprofloxacin HCl [Cipro] 500 mg tablet 500 mg PO BID Qty: 14 RF: 0 metronidazole [Flagyl] 500 mg tablet 500 mg PO Q8H 7 Days Qty: 21 RF: 0 omeprazole 20 mg capsule,delayed release(DR/EC) 20 mg PO BID Qty: 60 RF: 0 Continued losartan 25 mg tablet 25 mg PO DAILY RF: 0 epinephrine 0.3 mg/0.3 mL auto-injector 0.3 mg IM DIRECTED PRN (Reason: Anaphylaxis) RF: 0 Flintstones Tab Chew 100 mcg Tablet,Chewable 100 mcg PO DAILY RF: 0 cyanocobalamin (vitamin B-12) 1,000 mcg/mL Solution 1,000 mcg IM Q3M RF: 0 tamoxifen 20 mg tablet 20 mg PO DAILY RF: 0 Discontinued omeprazole 20 mg capsule,delayed release(DR/EC) 20 mg PO DAILY RF: 0 Discharge Orders: Discharge Order (Routine); Ordered 07/01/20 Ordered By: Cheng Baker Admission Data Admit Date/Time: 06/27/20 19:33 Attending Provider: Cheng Baker Admit Provider: Rodger Watkins Primary Care Provider: Salome Holliday Other Providers: Rodger Watkins ; Scot Aleman ; Souleymane Turpin
== END 2020-07-01 16:10 | disposition home or self-care (01) | DRG 418 ==
LOC: ED 16:45 → 2N 19:33 → SUATTDRO 19:33 → 2N 20:56